=== PATIENT | female | born 1955 | race Two or more races ===

== ENCOUNTER 2020-11-26 14:20 | Inpatient (IN) | payer MEDICARE ==
[~2020-11-26] VITALS: Ht 149.9 cm; Wt 59.0 kg
[~2020-11-26 14:20] MED LIST: ACET325T9 PO; CEFE100B IV; CITA20TA6 PO; CYCL10TA2 PO; CYPR4TAB31 PO; DOCU100C28 PO; DULO60CA6 PO; FURO40TA4 PO; LACT1CAP21 PO; LACT20SO PO; MAG30ORA6 PO; MORP2CAR3 IV; MULT-238 PO; OXYC10TA PO; OXYC5TAB88 PO; PANT40TA77 PO; POTA10TA6 PO; PREG75CA67 PO; SENN1TAB62 PO; SPIR50TA4 PO
--- NOTE | 2020-11-26 14:46 | PHYS DOC ---
Past Medical History Smoking Status: Never Smoker General Adult EDM: Chief Complaint: ALTERED MENTAL STATUS HPI: HPI: Patient is a 64 year old female coming from [facility] who presents with altered mental status and reported hypotension. SBP in the 80s prior to hospital. Has new onset tremor. Per report from EMS her baseline is alert and oriented x3. Here she is unable to participate in history and appears delirious. Review of Systems: Review of Systems: Unable to participate in history due to delirium. Heart Score: C/O Chest Pain: N/A Risk Factors: Risk Factors: DM, Current or recent (<one month) smoker, HTN, HLP, family history of CAD, obesity. Risk Scores: Score 0 - 3: 2.5% MACE over next 6 weeks - Discharge Home Score 4 - 6: 20.3% MACE over next 6 weeks - Admit for Clinical Observation Score 7 - 10: 72.7% MACE over next 6 weeks - Early Invasive Strategies Allergies: Allergies: Allergies Coded Allergies Type Severity Reaction Last Updated Verified prednisone Allergy Intermediate 11/16/20 Yes Physical Exam: PE: Constitutional: Obese, ill-appearing.. [] HENT: Mild bruising around head and neck as well as upper extremities. [] Eyes: conjunctiva normal, no discharge. [] Neck: Normal range of motion, bruising as noted above. [] Cardiovascular:Heart rate regular rhythm, no murmur [] Lungs & Thorax: Distant breath sounds, normal work of breathing [] Abdomen: ower abdominal tenderness to palpation.. [] Skin: Dorsum of right foot with ulceration and edema. Wound VAC in place on left anterior bustamante without surrounding erythema or discharge.. [] Extremities: No tenderness, no cyanosis, no clubbing, ROM intact, no edema. [] Neurologic: Disoriented to situation. Speech normal. Moving all 4 extremities. Tremulous. [] EKG: EKG: Sinus rhythm. Rate 87. Normal axis. Normal interval. Inferior Q waves. T wave inversion in lead III, V3V6. No acute ST elevation or depression. [] Radiology/Procedures: Radiology/Procedures: [] Impression: [facility] [address] [place] [address] IMAGING REPORT Signed PATIENT: JESSICA POWERS ACCOUNT: [id number] : 1955 LOCATION: ER AGE: 64 SEX: F EXAM STATUS: REG ER ORD. PHYSICIAN: LEO FLEMING MD REASON: ALTERED MENTAL STATUS PROCEDURE: CT HEAD WO CONTRAST Exam Date: 11/26/2020 3:[address] HEAD/BRAIN WO Indication: Reason: ALTERED MENTAL STATUS / Spl. Instructions: / History: . TECHNIQUE: Head CT was performed without intravenous contrast. One or more of the following dose reduction techniques were utilized: *Automated exposure control (AEC) *Adjustment of mA and/or kV according to patient size *Use of iterative reconstruction technique *CT scan done according to ALARA, or ALARA/IMAGE GENTLY FINDINGS: The ventricles and sulci are prominent consistent with cerebral volume loss. Patchy ill-defined low attenuation areas in the subcortical and periventricular white matter bilaterally are consistent with microvascular disease. There is no evidence of acute intracranial hemorrhage, extra-axial collection, mass effect, midline shift, or acute territorial infarct. No lesion of the skull base or the calvarium is seen. The visualized paranasal sinuses, mastoid air cells and orbits are normal in appearance. IMPRESSION: No evidence for acute intracranial abnormality. Volume loss and microvascular disease. Electronically signed by: Gela Ndiaye MD (11/26/2020 3:39 PM) [facility] DICTATED and SIGNED BY: GELA NDIAYE MD DATE: 11/26/20 [id number] [facility] [address] [place] [address] IMAGING REPORT Signed PATIENT: JESSICA POWERS ACCOUNT: [id number] : 1955 LOCATION: ER AGE: 64 SEX: F EXAM STATUS: PRE ER ORD. PHYSICIAN: LEO FLEMING MD REASON: ams PROCEDURE: CHEST AP ONLY XR CHEST 1V CLINICAL INDICATIONS: Altered mental status: COMPARISON: None available. Findings: Decreased lung volumes are seen. Bilateral diffuse interstitial lung infiltrates or peribronchial thickening is seen which may be acute or chronic in nature. No lung mass or lung consolidation or pleural effusion or pneumothorax is apparent otherwise. Radiodensities are seen within the bronchi of the right medial lower lung zone. This could be due to previous aspiration of barium or could represent calcification of mucous plugs. There is mild elevation of the right hemidiaphragm. The heart size is unremarkable given AP magnification and rotation towards the left side. The mediastinum and pulmonary vasculature are unremarkable. IMPRESSION: Decreased lung volumes. Elevation of the right hemidiaphragm. Bilateral interstitial thickening and/or peribronchial thickening which may be acute or chronic in nature. No lung consolidation. Radiopacities within the right lower lung zone bronchi. Electronically signed by: Miller Buitrago MD (11/26/2020 3:04 PM) [id number] DICTATED and SIGNED BY: MILLER BUITRAGO MD DATE: 11/26/20 [id number] [facility] [address] [place] [address] IMAGING REPORT Signed PATIENT: JESSICA POWERS ACCOUNT: [id number] : 1955 LOCATION: ER AGE: 64 SEX: F EXAM STATUS: REG ER ORD. PHYSICIAN: LEO FLEMING MD REASON: abdominal pain, altered, elevated bili PROCEDURE: CT ABD PELV W/ IV CONTRST ONLY Exam: CT of abdomen and pelvis with contrast INDICATION: Abdominal pain TECHNIQUE: Sequential axial images through the abdomen and pelvis obtained f ollowing the administration of 60 mL of Omni 300 IV contrast. Sagittal and coronal reformatted images were reconstructed from the axial data and reviewed. Exposure: One or more of the following in the visualized dose reduction techniques were utilized for this examination: 1. Automated exposure control 2. Adjustment of the MA and/or KV according to patient size 3. Use of iterative of reconstructive technique Comparisons: 11/01/2020 FINDINGS: Heart size is normal. No pericardial effusion. Linear bandlike opacity noted at the lung bases. No pleural effusion. Liver demonstrate a nodular contour. Gallbladder is absent. Spleen is enlarged measuring up to 17 cm in long axis. Pancreas and adrenals are unremarkable. Gallbladder is absent. Mildly delayed enhancement of the kidneys bilaterally. There is mild bilateral hydronephrosis. No renal or ureteral calculi are identified. Bladder is markedly distended and appears thin-walled. Uterus is absent. No abnormal adnexal mass. Moderate amount of stool is noted in the colon. Appendix is not identified. No free intra-abdominal air or fluid. No obstruction. Abdominal aorta has a normal course and caliber. Abdominal vasculature is patent. No enlarged intra-abdominal lymph nodes are identified. Compression fractures of the L3 and L5 vertebral bodies with vertebroplasty changes are noted. Numerous chronic appearing bilateral rib fractures. No acute fracture or suspicious osseous lesion. IMPRESSION: 1. Bladder is markedly dilated. Correlate for bladder outlet obstruction. 2. Mild bilateral hydronephrosis which can also be seen in setting of bladder outlet obstruction. No renal or ureteral calculi are identified. 3. Cirrhotic morphology of the liver with secondary sequela of portal hypertension including splenomegaly and abdominal varices. Electronically signed by: Amara Serra MD (11/26/2020 5:19 PM) [facility] DICTATED and SIGNED BY: AMARA SERRA MD DATE: 11/26/20 [id number] Course & Med Decision Making: Course & Med Decision Making Pertinent Labs and Imaging studies reviewed. (See chart for details) Patient is 64-year-old female who presents from [facility] with altered mental status reported hypotension. We are having difficulty obtaining a BP initially, but she has a strong radial pulse. She does appear to be delirious and tremulous on exam. She does have bruising around her neck and head which will prompt a CT of the head. We will do an infectious work-up with lactic acid, blood cultures, UA, chest x- ray. She also has a potential source of infection on the dorsum of her right foot which appears cellulitic. We will check an ammonia for hepatic encephalopathy given her delirium and tremor. IVF ordered as we await preliminary work-up. Ceftriaxone 1g for coverage of potential sepsis. 1446 Ammonia slightly elevated at 55. Mild GAVINO 1.[address] shows marked bladder distention, unable to urinate consistent with urinary retention. Awaiting UA. Lactate elevated at 2.8. We will plan on admission for delirium, urinary retention, GAVINO, and elevated lactic acid. [address] Disclaimer: [place] Disclaimer: This electronic medical record was generated, in whole or in part, using a voice recognition dictation system. Departure Departure Impression: Primary Impression: Delirium Additional Impression: Urinary retention Disposition: ADMITTED INPATIENT Admitting Physician: HIMS (SMITH) Condition: STABLE Referrals: NO PCP (PCP) LEO FLEMING MD Nov 26, 2020 14:46
[2020-11-26] MEDS ORDERED: IV NORMAL SALINE 1000ML BAG 1,000 ML IV ONE (15:00)
[2020-11-26] MEDS ORDERED: cefTRIAXone IV Push 1 GM VIAL. IVP ONE (15:00)
--- NOTE | 2020-11-26 15:07 | RAD ---
XR CHEST 1V CLINICAL INDICATIONS: Altered mental status: COMPARISON: None available. Findings: Decreased lung volumes are seen. Bilateral diffuse interstitial lung infiltrates or peribro nchial thickening is seen which may be acute or chronic in nature. No lung mass or lung consolidation or pleural effusion or pneumothorax is apparent otherwise. Radiodensities are seen within the bronch i of the right medial lower lung zone. This could be due to previous aspiration of barium or could re present calcification of mucous plugs. There is mild elevation of the right hemidiaphragm. The heart size is unremarkable given AP magnification and rotation towards the left side. The mediastinum and p ulmonary vasculature are unremarkable. IMPRESSION: Decreased lung volumes. Elevation of the right hemidiaphragm. Bilateral interstitial thickening and/or peribronchial thickening which may be acute or chronic in na ture. No lung consolidation. Radiopacities within the right lower lung zone bronchi. Electronically signed by: Elier Buitrago MD (11/26/2020 3:04 PM) [id number]
--- NOTE | 2020-11-26 15:42 | RAD ---
Exam Date: 11/26/2020 3:[address] HEAD/BRAIN WO Indication: Reason: ALTERED MENTAL STATUS / Spl. Instructions: / History: . TECHNIQUE: Head CT was performed without intravenous contrast. One or more of the following dose re duction techniques were utilized: *Automated exposure control (AEC) *Adjustment of mA and/or kV according to patient size *Use of iterative reconstruction technique *CT scan done according to ALARA, or ALARA/IMAGE GENTLY FINDINGS: The ventricles and sulci are prominent consistent with cerebral volume loss. Patchy ill-defined low attenuation areas in the subcortical and periventricular white matter bilaterally are consistent with microvascular disease. There is no evidence of acute intracranial hemorrhage, extra-axial collecti on, mass effect, midline shift, or acute territorial infarct. No lesion of the skull base or the calv arium is seen. The visualized paranasal sinuses, mastoid air cells and orbits are normal in appearanc e. IMPRESSION: No evidence for acute intracranial abnormality. Volume loss and microvascular disease. Electronically signed by: Daryl Ndiaye MD (11/26/2020 3:39 PM) [facility]
[2020-11-26 15:54] LABS: BASO % 1 % (0-3); EOS # 0.1 x10^3/uL (0.0-0.7); EOS % 2 % (0-3); HEMATOCRIT 31.8 % (36.0-47.0); HEMOGLOBIN 10.1 g/dL (12.0-15.5); LYMPH # 1.1 x10^3/uL (1.0-4.8); LYMPH % 19 % (24-48); MEAN CORPUSCULAR HEMOGLOBIN 31 pg (25-35); MEAN CORPUSCULAR HGB CONC 32 g/dL (31-37); MEAN CORPUSCULAR VOLUME 99 fL (79-100); MONO # 0.4 x10^3/uL (0.0-1.1); MONO % 7 % (0-9); NEUT % 72 % (31-73); PLATELET COUNT 95 x10^3/uL (140-400); RED BLOOD COUNT 3.22 x10^6/uL (3.50-5.40); RED CELL DISTRIBUTION WIDTH 16.9 % (11.5-14.5); WHITE BLOOD COUNT 5.6 x10^3/uL (4.0-11.0)
[2020-11-26 16:25] LABS: ALBUMIN 2.3 g/dL (3.4-5.0); ALBUMIN/GLOBULIN RATIO 0.6 (1.0-1.7); CALCIUM 8.3 mg/dL (8.5-10.1); CREATININE 1.2 mg/dL (0.6-1.0); GFR 45.2; POTASSIUM 4.3 mmol/L (3.5-5.1); TOTAL BILIRUBIN 1.4 mg/dL (0.2-1.0); TOTAL PROTEIN 6.2 g/dL (6.4-8.2)
[2020-11-26] MEDS ORDERED: CONTRAST GIVEN. MC PRN (16:45)
[2020-11-26] MEDS ORDERED: IOHEXOL 300 MG/ML 100ML VIAL. IV ONE (16:45)
--- NOTE | 2020-11-26 17:21 | RAD ---
Exam: CT of abdomen and pelvis with contrast INDICATION: Abdominal pain TECHNIQUE: Sequential axial images through the abdomen and pelvis obtained following the administrati on of 60 mL of Omni 300 IV contrast. Sagittal and coronal reformatted images were reconstructed from the axial data and reviewed. Exposure: One or more of the following in the visualized dose reduction techniques were utilized for this examination: 1. Automated exposure control 2. Adjustment of the MA and/or KV according to patient size 3. Use of iterative of reconstructive technique Comparisons: 11/01/2020 FINDINGS: Heart size is normal. No pericardial effusion. Linear bandlike opacity noted at the lung bases. No pl eural effusion. Liver demonstrate a nodular contour. Gallbladder is absent. Spleen is enlarged measuring up to 17 cm in long axis. Pancreas and adrenals are unremarkable. Gallbladder is absent. Mildly delayed enhancement of the kidneys bilaterally. There is mild bilateral hydronephrosis. No jacinto al or ureteral calculi are identified. Bladder is markedly distended and appears thin-walled. Uterus is absent. No abnormal adnexal mass. Moderate amount of stool is noted in the colon. Appendix is not identified. No free intra-abdominal a ir or fluid. No obstruction. Abdominal aorta has a normal course and caliber. Abdominal vasculature is patent. No enlarged intra-abdominal lymph nodes are identified. Compression fractures of the L3 and L5 vertebral bodies with vertebroplasty changes are noted. Get us chronic appearing bilateral rib fractures. No acute fracture or suspicious osseous lesion. IMPRESSION: 1. Bladder is markedly dilated. Correlate for bladder outlet obstruction. 2. Mild bilateral hydronephrosis which can also be seen in setting of bladder outlet obstruction. No renal or ureteral calculi are identified. 3. Cirrhotic morphology of the liver with secondary sequela of portal hypertension including splenom egaly and abdominal varices. Electronically signed by: Amara Baker MD (11/26/2020 5:19 PM) [facility]
--- NOTE | 2020-11-26 18:16 | PDOC1 ---
History and Physical Date of Service: DOS: DATE: 11/26/20 TIME: 18:03 Chief Complaint: Chief Complain: AMS History of Present Illness: HPI: History obtained from discussion with ED physician and chart review: 64-year-old female with past medical history of DVT, chronic back pain, GERD, liver cirrhosis, hypothyroidism who comes in from [facility] due to altered mental status and hypotension. Patient had systolic blood pressure of 80s before presentation to the hospital. Patient was also recently admitted here due to a left leg hematoma that got debrided. Apparently the patient's baseline is alert and oriented x3. Past Medical/Surgical History: PMH/PSH: PAST MEDICAL HISTORY: Significant for: 1. Lumbar radiculopathy. 2. Chronic anemia. 3. Protein-calorie malnutrition. 4. Hypothyroidism. 5. Acute embolism and thrombosis of lower extremities. 6. Gastroesophageal reflux disease. 7. Lumbago sciatica. 8. Cognitive communication deficit. PAST SURGICAL HISTORY: Significant for: 1. Lumbar fusion. 2. Total abdominal hysterectomy and bilateral salpingo-oophorectomy. 3. Bladder suspension. Allergies: Allergies: Coded Allergies: prednisone (Verified Allergy, Intermediate, 11/16/20) Family History: Family History: Reviewed with no relevant findings Social History: Social History: No known history of smoking, drug or alcohol abuse. Current Medications: Current Medications Current Medications Sodium Chloride 1,000 ml @ 1,000 mls/hr 1X ONCE IV Last administered on 11/26/20at 16:26; Start 11/26/20 at 15:00; Stop 11/26/20 at 15:59; Status DC Ceftriaxone Sodium (Rocephin) 1 gm 1X ONCE IVP Last administered on 11/26/20at 16:26; Start 11/26/20 at 15:00; Stop 11/26/20 at 15:01; Status DC Iohexol (Omnipaque 300 Mg/ml) 60 ml 1X ONCE IV Last administered on 11/26/20at 16:56; Start 11/26/20 at 16:45; Stop 11/26/20 at 16:46; Status DC Info (CONTRAST GIVEN -- Rx MONITORING) 1 each PRN DAILY PRN MC SEE COMMENTS; Start 11/26/20 at 16:45; Stop 11/28/20 at 16:44 Lactulose (Lactulose) 20 gm 1X ONCE PO ; Start 11/26/20 at 18:30; Stop 11/26/20 at 18:31 Active Scripts Active Oxycodone Hcl Immed.release (Oxycodone Hcl) 10 Mg Tablet 10 Mg PO PRN Q6HRS PRN 15 Days Oxycodone Hcl Immed.release (Oxycodone Hcl) 10 Mg Tablet 10 Mg PO PRN Q6HRS PRN 15 Days Reported Spironolactone 50 Mg Tablet 1 Tab PO DAILY Senna Plus Tablet (Sennosides/Docusate Sodium) 1 Each Tablet 1 Tab PO PRN DAILY PRN 20 Days Pregabalin 75 Mg Capsule 75 Mg PO TID Klor-Con 10 (Potassium Chloride) 10 Meq Tablet.er 1 Tab PO DAILY 30 Days Pantoprazole Sodium (Pantoprazole Sodium) 40 Mg Tablet.dr 40 Mg PO DAILYAC Thera-M Caplet (Multivit,Ther Iron,Ca,Fa & Min) 1 Each Tablet 1 Tab PO DAILY 30 Days Mag-Al Hydrox-Simeth Max Susp (Mag Hydrox/Aluminum Hyd/Simeth) 30 Ml Oral.susp 5 Ml PO PRN Q6HRS PRN Lactulose 20 Gm/30 Ml Solution 20 Gm PO PRN TID PRN Culturelle (Lactobacillus Rhamnosus Gg) 1 Each Capsule 1 Cap PO DAILY 30 Days Furosemide 40 Mg Tablet 1 Tab PO DAILY Cymbalta (Duloxetine Hcl) 60 Mg Capsule.dr 1 Cap PO DAILY Docusate Sodium 100 Mg Capsule 1 Cap PO BID PRN 7 Days Cyproheptadine Hcl 4 Mg Tablet 1 Tab PO BID Cyclobenzaprine Hcl 10 Mg Tablet 1 Tab PO TID Citalopram Hbr (Citalopram Hydrobromide) 20 Mg Tablet 1 Tab PO DAILY Tylenol (Acetaminophen) 325 Mg Tablet 650 Mg PO PRN TID PRN ROS: Review of Systems Review of System Unable to obtain due to altered mental status Physical Exam: Vital Signs: Vital Signs Date Time Temp Pulse Resp B/P (MAP) Pulse Ox O2 Delivery O2 Flow Rate FiO2 11/26/20 16:31 80 14 103/66 (78) 92 Room Air 11/26/20 14:31 98.3 98.3 Physcial Exam: General: Well developed, well nourished, no acute distress, well appearing HEENT: Pupils equally round and reactive to light, EOMI, no discharge, normal conjunctiva Neck: Supple, no nuchal rigidity, no JVD, trachea midline, no tenderness Cardiac: RRR, no murmurs, no gallops, no rubs Chest/Lungs: CTAB, no wheeze, no rhonchi, no crackles Abdomen: soft, non-distended, no guarding, no peritoneal signs, non-tender Back: No tenderness Extremities: no edema, pulses intact, non-tender,capillary refill <3 sec bilateral upper and lower extremities, Dorsum of right foot with ulceration and edema. Wound VAC in place on left anterior bustamante without surrounding erythema or discharge. Neuro: Alert and oriented x 4, no focal deficits, normal speech Labs: Labs: Laboratory Tests Test 11/26/20 14:50 11/26/20 15:42 Glucose (Fingerstick) 143 mg/dL (70-99) White Blood Count 5.6 x10^3/uL (4.0-11.0) Red Blood Count 3.22 x10^6/uL (3.50-5.40) Hemoglobin 10.1 g/dL (12.0-15.5) Hematocrit 31.8 % (36.0-47.0) Mean Corpuscular Volume 99 fL (79-100) Mean Corpuscular Hemoglobin 31 pg (25-35) Mean Corpuscular Hemoglobin Concent 32 g/dL (31-37) Red Cell Distribution Width 16.9 % (11.5-14.5) Platelet Count 95 x10^3/uL (140-400) Neutrophils (%) (Auto) 72 % (31-73) Lymphocytes (%) (Auto) 19 % (24-48) Monocytes (%) (Auto) 7 % (0-9) Eosinophils (%) (Auto) 2 % (0-3) Basophils (%) (Auto) 1 % (0-3) Neutrophils # (Auto) 4.0 x10^3/uL (1.8-7.7) Lymphocytes # (Auto) 1.1 x10^3/uL (1.0-4.8) Monocytes # (Auto) 0.4 x10^3/uL (0.0-1.1) Eosinophils # (Auto) 0.1 x10^3/uL (0.0-0.7) Basophils # (Auto) 0.0 x10^3/uL (0.0-0.2) Sodium Level 140 mmol/L (136-145) Potassium Level 4.3 mmol/L (3.5-5.1) Chloride Level 104 mmol/L (98-107) Carbon Dioxide Level 30 mmol/L (21-32) Anion Gap 6 (6-14) Blood Urea Nitrogen 23 mg/dL (7-20) Creatinine 1.2 mg/dL (0.6-1.0) Estimated GFR (Cockcroft-Gault) 45.2 BUN/Creatinine Ratio 19 (6-20) Glucose Level 133 mg/dL (70-99) Lactic Acid Level 2.8 mmol/L (0.4-2.0) Calcium Level 8.3 mg/dL (8.5-10.1) Total Bilirubin 1.4 mg/dL (0.2-1.0) Aspartate Amino Transf (AST/SGOT) 26 U/L (15-37) Alanine Aminotransferase (ALT/SGPT) 23 U/L (14-59) Alkaline Phosphatase 159 U/L (46-116) Ammonia 55 mcmol/L (11-34) Troponin I Quantitative < 0.017 ng/mL (0.000-0.055) Total Protein 6.2 g/dL (6.4-8.2) Albumin 2.3 g/dL (3.4-5.0) Albumin/Globulin Ratio 0.6 (1.0-1.7) Laboratory Tests Test 11/26/20 14:50 11/26/20 15:42 Glucose (Fingerstick) 143 mg/dL (70-99) White Blood Count 5.6 x10^3/uL (4.0-11.0) Red Blood Count 3.22 x10^6/uL (3.50-5.40) Hemoglobin 10.1 g/dL (12.0-15.5) Hematocrit 31.8 % (36.0-47.0) Mean Corpuscular Volume 99 fL (79-100) Mean Corpuscular Hemoglobin 31 pg (25-35) Mean Corpuscular Hemoglobin Concent 32 g/dL (31-37) Red Cell Distribution Width 16.9 % (11.5-14.5) Platelet Count 95 x10^3/uL (140-400) Neutrophils (%) (Auto) 72 % (31-73) Lymphocytes (%) (Auto) 19 % (24-48) Monocytes (%) (Auto) 7 % (0-9) Eosinophils (%) (Auto) 2 % (0-3) Basophils (%) (Auto) 1 % (0-3) Neutrophils # (Auto) 4.0 x10^3/uL (1.8-7.7) Lymphocytes # (Auto) 1.1 x10^3/uL (1.0-4.8) Monocytes # (Auto) 0.4 x10^3/uL (0.0-1.1) Eosinophils # (Auto) 0.1 x10^3/uL (0.0-0.7) Basophils # (Auto) 0.0 x10^3/uL (0.0-0.2) Sodium Level 140 mmol/L (136-145) Potassium Level 4.3 mmol/L (3.5-5.1) Chloride Level 104 mmol/L (98-107) Carbon Dioxide Level 30 mmol/L (21-32) Anion Gap 6 (6-14) Blood Urea Nitrogen 23 mg/dL (7-20) Creatinine 1.2 mg/dL (0.6-1.0) Estimated GFR (Cockcroft-Gault) 45.2 BUN/Creatinine Ratio 19 (6-20) Glucose Level 133 mg/dL (70-99) Lactic Acid Level 2.8 mmol/L (0.4-2.0) Calcium Level 8.3 mg/dL (8.5-10.1) Total Bilirubin 1.4 mg/dL (0.2-1.0) Aspartate Amino Transf (AST/SGOT) 26 U/L (15-37) Alanine Aminotransferase (ALT/SGPT) 23 U/L (14-59) Alkaline Phosphatase 159 U/L (46-116) Ammonia 55 mcmol/L (11-34) Troponin I Quantitative < 0.017 ng/mL (0.000-0.055) Total Protein 6.2 g/dL (6.4-8.2) Albumin 2.3 g/dL (3.4-5.0) Albumin/Globulin Ratio 0.6 (1.0-1.7) Images: Images PROCEDURE: CT ABD PELV W/ IV CONTRST ONLY IMPRESSION: 1. Bladder is markedly dilated. Correlate for bladder outlet obstruction. 2. Mild bilateral hydronephrosis which can also be seen in setting of bladder outlet obstruction. No renal or ureteral calculi are identified. 3. Cirrhotic morphology of the liver with secondary sequela of portal hypertension including splenomegaly and abdominal varices. PROCEDURE: CT HEAD WO CONTRAST IMPRESSION: No evidence for acute intracranial abnormality. Volume loss and microvascular disease. PROCEDURE: CHEST AP ONLY IMPRESSION: Decreased lung volumes. Elevation of the right hemidiaphragm. Bilateral interstitial thickening and/or peribronchial thickening which may be acute or chronic in nature. No lung consolidation. Radiopacities within the right lower lung zone bronchi. Assessment/Plan Assessment/Plan Acute metabolic encephalopathy GAVINO due to vasomotor nephropathy Acute urinary retention due to bladder outlet obstruction Liver cirrhosis MELD score of around 9, pending INR for more accurate calculation Elevated ammonia levels Severe protein malnutrition History of bladder suspension Hypothyroidism History of DVT Admit to hospitalist service for further management Lactulose as needed to maintain bowel movements at least 2-3 times per day Martinez catheter placement to relieve bladder outlet obstruction Heparin for DVT prophylaxis Tonics GI prophylaxis ADA diet CODE STATUS unknown at this time Discussed with RN and SW Disposition inpatient management as above DPOA: Jim Cabrera Justifications for Admission Other Justification YOLY SMITH MD Nov 26, 2020 18:16
[2020-11-26] MEDS ORDERED: LACTULOSE 20 GM/30 ML SOLUTION. PO ONE (18:30)
[2020-11-26] MEDS ORDERED: DOCUSATE SODIUM 100 MG CAPSULE. PO PRN (21:00)
[2020-11-26] MEDS ORDERED: ONDANSETRON PF 4 MG/2 ML VIAL. IVP PRN (21:00)
[2020-11-26] MEDS ORDERED: DEXTROSE 50% 25 GM / 50ML DISP.SYRIN. IV PRN (21:00)
[2020-11-26] MEDS ORDERED: ACETAMINOPHEN 325 MG TABLET. PO PRN (21:00)
[2020-11-26] MEDS ORDERED: PROCHLORPERAZINE 10 MG/2 ML VIAL. IV PRN (21:00)
[2020-11-26] MEDS ORDERED: SENNOSIDES 8.6 MG TABLET PO PRN (21:00)
--- NOTE | 2020-11-26 21:21 | NUR ---
The patient, JESSICA POWERS, 64 y/o, F admitted by YOLY SMITH MD, was given written information regarding hospital policies, unit procedures and contact persons. Valuables were checked and left with her.
[2020-11-26 21:36] VITALS: BP 137/46
[2020-11-26 23:00] VITALS: BP 124/71
[2020-11-27 03:00] VITALS: BP 136/78
[2020-11-27 07:00] VITALS: BP 130/51
[2020-11-27 07:15] LABS: BASO % 1 % (0-3); EOS # 0.1 x10^3/uL (0.0-0.7); EOS % 3 % (0-3); HEMATOCRIT 27.1 % (36.0-47.0); HEMOGLOBIN 9.2 g/dL (12.0-15.5); LYMPH # 0.8 x10^3/uL (1.0-4.8); LYMPH % 25 % (24-48); MEAN CORPUSCULAR HEMOGLOBIN 32 pg (25-35); MEAN CORPUSCULAR HGB CONC 34 g/dL (31-37); MEAN CORPUSCULAR VOLUME 95 fL (79-100); MONO # 0.2 x10^3/uL (0.0-1.1); MONO % 7 % (0-9); NEUT # 1.9 x10^3/uL (1.8-7.7); NEUT % 64 % (31-73); PLATELET COUNT 66 x10^3/uL (140-400); RED BLOOD COUNT 2.86 x10^6/uL (3.50-5.40); RED CELL DISTRIBUTION WIDTH 15.7 % (11.5-14.5)
[2020-11-27] MEDS ORDERED: PANTOPRAZOLE IV PUSH 40 MG VIAL. IVP SCH (07:30)
[2020-11-27 07:31] LABS: CALCIUM 8.1 mg/dL (8.5-10.1); CREATININE 1.1 mg/dL (0.6-1.0); MAGNESIUM 1.8 mg/dL (1.8-2.4); PHOSPHORUS 4.3 mg/dL (2.6-4.7)
[2020-11-27 09:12] LABS: PROTHROMBIN TIME PATIENT 17.2 SEC (11.7-14.0)
--- NOTE | 2020-11-27 09:56 | PDOC2 ---
GI CONSULT Date of Service: DATE: 11/27/20 TIME: 09:56 Reason For Consult: cirrhosis, varices, beta mega window? HPI: HPI: 64 y/o female admitted yesterday w/ AMS and hypotension. She tells me she got up in the middle of the night and fell (prior to admission). CT noted markedly dilated bladder, mild bilateral hydronephrosis, and cirrhotic morphology of the liver with secondary sequela of portal hypertension including splenomegaly and abdominal varices. She has no GI complaints. Participates in interview, suspect not the best historian. No GI concerns per nurse. Recent admission, had LE hematoma debridement. H&P at that time listed medications that included: Eliquis, spironolactone, ASA, furosemide, lactulose, Protonix. H/o GERD controlled w/ omeprazole. No change in appetite, dysphagia, n/v, abd pain, diarrhea, constipation, hematochezia, or melena. Says her abdomen is "full of fluid." No previous EGD or colonoscopy. Unaware of liver disease - says "you're scaring me" and "I'm not a drinker." S/p cholecystectomy. No pancreas or PUD history. PMH: PMH: hypothyroidism, GERD, DVT, cognitive communication deficit, lumbar radiculopathy lumbar fusion, hysterectomy and BSO, bladder suspension, vertebroplasty FH: Family History: No pertinent hx (denies liver disease) Social History: ALCOHOL: none Drugs: None ROS: GEN: Denies fevers, chills, sweats HEENT: Denies blurred vision, sore throat CV: Denies chest pain RESP: Denies shortness of air, cough GI: Per HPI : Denies hematuria, dysuria ENDO: Denies weight changes NEURO: Denies confusion, dizziness MSK: +recent fall +leg pain SKIN: Denies jaundice, pruritus Vitals: Vitals: Vital Signs Date Time Temp Pulse Resp B/P (MAP) Pulse Ox O2 Delivery O2 Flow Rate FiO2 11/27/20 07:00 97.7 76 18 130/51 (77) 96 97.7 11/27/20 03:00 Room Air Labs: Labs: Laboratory Tests Test 11/26/20 14:50 11/26/20 15:42 11/26/20 20:00 11/27/20 06:40 Glucose (Fingerstick) 143 mg/dL (70-99) White Blood Count 5.6 x10^3/uL (4.0-11.0) 3.0 x10^3/uL (4.0-11.0) Red Blood Count 3.22 x10^6/uL (3.50-5.40) 2.86 x10^6/uL (3.50-5.40) Hemoglobin 10.1 g/dL (12.0-15.5) 9.2 g/dL (12.0-15.5) Hematocrit 31.8 % (36.0-47.0) 27.1 % (36.0-47.0) Mean Corpuscular Volume 99 fL (79-100) 95 fL (79-100) Mean Corpuscular Hemoglobin 31 pg (25-35) 32 pg (25-35) Mean Corpuscular Hemoglobin Concent 32 g/dL (31-37) 34 g/dL (31-37) Red Cell Distribution Width 16.9 % (11.5-14.5) 15.7 % (11.5-14.5) Platelet Count 95 x10^3/uL (140-400) 66 x10^3/uL (140-400) Neutrophils (%) (Auto) 72 % (31-73) 64 % (31-73) Lymphocytes (%) (Auto) 19 % (24-48) 25 % (24-48) Monocytes (%) (Auto) 7 % (0-9) 7 % (0-9) Eosinophils (%) (Auto) 2 % (0-3) 3 % (0-3) Basophils (%) (Auto) 1 % (0-3) 1 % (0-3) Neutrophils # (Auto) 4.0 x10^3/uL (1.8-7.7) 1.9 x10^3/uL (1.8-7.7) Lymphocytes # (Auto) 1.1 x10^3/uL (1.0-4.8) 0.8 x10^3/uL (1.0-4.8) Monocytes # (Auto) 0.4 x10^3/uL (0.0-1.1) 0.2 x10^3/uL (0.0-1.1) Eosinophils # (Auto) 0.1 x10^3/uL (0.0-0.7) 0.1 x10^3/uL (0.0-0.7) Basophils # (Auto) 0.0 x10^3/uL (0.0-0.2) 0.0 x10^3/uL (0.0-0.2) Sodium Level 140 mmol/L (136-145) 141 mmol/L (136-145) Potassium Level 4.3 mmol/L (3.5-5.1) 4.0 mmol/L (3.5-5.1) Chloride Level 104 mmol/L (98-107) 105 mmol/L (98-107) Carbon Dioxide Level 30 mmol/L (21-32) 32 mmol/L (21-32) Anion Gap 6 (6-14) 4 (6-14) Blood Urea Nitrogen 23 mg/dL (7-20) 17 mg/dL (7-20) Creatinine 1.2 mg/dL (0.6-1.0) 1.1 mg/dL (0.6-1.0) Estimated GFR (Cockcroft-Gault) 45.2 50.0 BUN/Creatinine Ratio 19 (6-20) Glucose Level 133 mg/dL (70-99) 83 mg/dL (70-99) Lactic Acid Level 2.8 mmol/L (0.4-2.0) 1.6 mmol/L (0.4-2.0) Calcium Level 8.3 mg/dL (8.5-10.1) 8.1 mg/dL (8.5-10.1) Total Bilirubin 1.4 mg/dL (0.2-1.0) Aspartate Amino Transf (AST/SGOT) 26 U/L (15-37) Alanine Aminotransferase (ALT/SGPT) 23 U/L (14-59) Alkaline Phosphatase 159 U/L (46-116) Ammonia 55 mcmol/L (11-34) Troponin I Quantitative < 0.017 ng/mL (0.000-0.055) Total Protein 6.2 g/dL (6.4-8.2) Albumin 2.3 g/dL (3.4-5.0) Albumin/Globulin Ratio 0.6 (1.0-1.7) Phosphorus Level 4.3 mg/dL (2.6-4.7) Magnesium Level 1.8 mg/dL (1.8-2.4) Hepatitis A IgM Antibody Nonreactive (Nonreactive) Hepatitis B Surface Antigen Nonreactive (Nonreactive) Hepatitis B Core IgM Antibody Nonreactive (Nonreactive) Hepatitis C IgG Antibody Nonreactive (Nonreactive) Test 11/27/20 08:45 Prothrombin Time 17.2 SEC (11.7-14.0) Prothromb Time International Ratio 1.4 (0.8-1.1) Allergies: Coded Allergies: prednisone (Verified Allergy, Intermediate, 11/16/20) Medications: Current Medications Medications (Trade) Dose Ordered Sig/Lizette Route PRN Reason Start Time Stop Time Status Last Admin Dose Admin Sodium Chloride 1,000 ml @ 1,000 mls/hr 1X ONCE IV 11/26/20 15:00 11/26/20 15:59 DC 11/26/20 16:26 Ceftriaxone Sodium (Rocephin) 1 gm 1X ONCE IVP 11/26/20 15:00 11/26/20 15:01 DC 11/26/20 16:26 Iohexol (Omnipaque 300 Mg/ml) 60 ml 1X ONCE IV 11/26/20 16:45 11/26/20 16:46 DC 11/26/20 16:56 Lactulose (Lactulose) 20 gm 1X ONCE PO 11/26/20 18:30 11/26/20 18:31 DC 11/26/20 20:07 Pantoprazole Sodium (PROTONIX VIAL for IV PUSH) 40 mg DAILYAC IVP 11/27/20 07:30 11/27/20 09:31 Imaging: Imaging: CXR 11/26 IMPRESSION: Decreased lung volumes. Elevation of the right hemidiaphragm. Bilateral interstitial thickening and/or peribronchial thickening which may be acute or chronic in nature. No lung consolidation. Radiopacities within the right lower lung zone bronchi. Head CT 11/26 IMPRESSION: No evidence for acute intracranial abnormality. Volume loss and microvascular disease. CT A/P 11/26 FINDINGS: Heart size is normal. No pericardial effusion. Linear bandlike opacity noted at the lung bases. No pleural effusion. Liver demonstrate a nodular contour. Gallbladder is absent. Spleen is enlarged measuring up to 17 cm in long axis. Pancreas and adrenals are unremarkable. Gallbladder is absent. Mildly delayed enhancement of the kidneys bilaterally. There is mild bilateral hydronephrosis. No renal or ureteral calculi are identified. Bladder is markedly distended and appears thin-walled. Uterus is absent. No abnormal adnexal mass. Moderate amount of stool is noted in the colon. Appendix is not identified. No free intra-abdominal air or fluid. No obstruction. Abdominal aorta has a normal course and caliber. Abdominal vasculature is patent. No enlarged intra-abdominal lymph nodes are identified. Compression fractures of the L3 and L5 vertebral bodies with vertebroplasty changes are noted. Numerous chronic appearing bilateral rib fractures. No acute fracture or suspicious osseous lesion. IMPRESSION: 1. Bladder is markedly dilated. Correlate for bladder outlet obstruction. 2. Mild bilateral hydronephrosis which can also be seen in setting of bladder o utlet obstruction. No renal or ureteral calculi are identified. 3. Cirrhotic morphology of the liver with secondary sequela of portal hypertension including splenomegaly and abdominal varices. PE: GEN: appears chronically ill HEENT: Atraumatic, PERRLA LUNGS: CTAB anteriorly HEART: RRR ABD: large, soft, non-tender EXTREMITY: some edema BLE, LLE wrapped, both tender to light touch SKIN: No rashes, no jaundice NEURO/PSYCH: appropriate, probably forgetful A/P: A/P: AMS, hypotension Pancytopenia, coagulopathy, mild hyperammonemia, elevated Alk Phos Abnormal CT - "cirrhotic morphology of the liver with secondary sequela of portal hypertension including splenomegaly and abdominal varices" GERD - controlled w/ PPI CRC screen - none S/p cholecystectomy COVID negative H/o DVT - ?still on Eliquis -- She's unaware of liver history and not mentioned in other notes; however, takes lactulose and diuretics normally? Viral hepatitis panel negative. ?NAFLD Will d/w Dr. Sterling re: additional labs and beta-mega question. Agree w/ PPI - okay to change to PO. BRUNO KRSUE Nov 27, 2020 09:56
--- NOTE | 2020-11-27 10:38 | NUR ---
SW following. Discussed with RN. BRIE verified pt came from [facility], room air, regular diet. PT/OT ordered. Wound care and GI following. Pt will need a PCR COVID test prior to returning to [facility]. BRIE will continue to follow.
[2020-11-27 11:00] VITALS: BP 118/71
[2020-11-27] MEDS ORDERED: LACTULOSE 20 GM/30 ML SOLUTION. PO PRN (12:00)
--- NOTE | 2020-11-27 12:32 | PDOC ---
[employer] PROGRESS NOTE Date of Service DOS: DATE: 11/27/20 TIME: 12:27 Chief Complaint Chief Complaint Acute metabolic encephalopathy GAVINO due to vasomotor nephropathy Acute urinary retention due to bladder outlet obstruction Liver cirrhosis MELD score of 13 Elevated ammonia levels Severe protein malnutrition History of bladder suspension Hypothyroidism History of DVT Admit to hospitalist service for further management GI consult Continue ceftriaxone due to bladder outlet obstruction concerning for possible UTI and SBP prophylaxis considering findings of varices Lactulose as needed to maintain bowel movements at least 2-3 times per day Martinez catheter placement to relieve bladder outlet obstruction Heparin for DVT prophylaxis Protonix GI prophylaxis ADA diet CODE STATUS unknown at this time Discussed with RN and SW Disposition inpatient management as above DPOA: Jim Cabrera History of Present Illness History of Present Illness 64-year-old female with past medical history of DVT, chronic back pain, GERD, liver cirrhosis, hypothyroidism who comes in from [facility] due to altered mental status and hypotension. Patient had systolic blood pressure of 80s before presentation to the hospital. Patient was also recently admitted here due to a left leg hematoma that got debrided. Apparently the patient's baseline is alert and oriented x3. 11/27/2020 No acute events overnight. Patient seen and examined bedside. More alert today and was able to answer basic questions but still is a poor historian. Does not know why she has cirrhosis and she claims she is not a drinker. Patient's chart, labs, images were reviewed and discussed with RN Vitals/I&O Vitals/I&O: Vital Signs Date Time Temp Pulse Resp B/P (MAP) Pulse Ox O2 Delivery O2 Flow Rate FiO2 11/27/20 11:00 97.4 74 18 118/71 (87) 97 97.4 11/27/20 08:10 Room Air I & O 11/26/20 11/26/20 11/27/20 15:00 23:00 07:00 Intake Total 1120 ml 120 ml Output Total 0 ml Balance 1120 ml 120 ml Physical Exam General: Alert, Oriented X3, Cooperative Heart: Regular rate Abdomen: Normal bowel sounds Extremities: No clubbing, Other (Multiple bruises on extremities and shakiness with intentional tremors) Skin: No rashes Labs Labs: Laboratory Tests Test 11/26/20 14:50 11/26/20 15:42 11/26/20 20:00 11/27/20 06:40 Glucose (Fingerstick) 143 mg/dL (70-99) White Blood Count 5.6 x10^3/uL (4.0-11.0) 3.0 x10^3/uL (4.0-11.0) Red Blood Count 3.22 x10^6/uL (3.50-5.40) 2.86 x10^6/uL (3.50-5.40) Hemoglobin 10.1 g/dL (12.0-15.5) 9.2 g/dL (12.0-15.5) Hematocrit 31.8 % (36.0-47.0) 27.1 % (36.0-47.0) Mean Corpuscular Volume 99 fL (79-100) 95 fL (79-100) Mean Corpuscular Hemoglobin 31 pg (25-35) 32 pg (25-35) Mean Corpuscular Hemoglobin Concent 32 g/dL (31-37) 34 g/dL (31-37) Red Cell Distribution Width 16.9 % (11.5-14.5) 15.7 % (11.5-14.5) Platelet Count 95 x10^3/uL (140-400) 66 x10^3/uL (140-400) Neutrophils (%) (Auto) 72 % (31-73) 64 % (31-73) Lymphocytes (%) (Auto) 19 % (24-48) 25 % (24-48) Monocytes (%) (Auto) 7 % (0-9) 7 % (0-9) Eosinophils (%) (Auto) 2 % (0-3) 3 % (0-3) Basophils (%) (Auto) 1 % (0-3) 1 % (0-3) Neutrophils # (Auto) 4.0 x10^3/uL (1.8-7.7) 1.9 x10^3/uL (1.8-7.7) Lymphocytes # (Auto) 1.1 x10^3/uL (1.0-4.8) 0.8 x10^3/uL (1.0-4.8) Monocytes # (Auto) 0.4 x10^3/uL (0.0-1.1) 0.2 x10^3/uL (0.0-1.1) Eosinophils # (Auto) 0.1 x10^3/uL (0.0-0.7) 0.1 x10^3/uL (0.0-0.7) Basophils # (Auto) 0.0 x10^3/uL (0.0-0.2) 0.0 x10^3/uL (0.0-0.2) Sodium Level 140 mmol/L (136-145) 141 mmol/L (136-145) Potassium Level 4.3 mmol/L (3.5-5.1) 4.0 mmol/L (3.5-5.1) Chloride Level 104 mmol/L (98-107) 105 mmol/L (98-107) Carbon Dioxide Level 30 mmol/L (21-32) 32 mmol/L (21-32) Anion Gap 6 (6-14) 4 (6-14) Blood Urea Nitrogen 23 mg/dL (7-20) 17 mg/dL (7-20) Creatinine 1.2 mg/dL (0.6-1.0) 1.1 mg/dL (0.6-1.0) Estimated GFR (Cockcroft-Gault) 45.2 50.0 BUN/Creatinine Ratio 19 (6-20) Glucose Level 133 mg/dL (70-99) 83 mg/dL (70-99) Lactic Acid Level 2.8 mmol/L (0.4-2.0) 1.6 mmol/L (0.4-2.0) Calcium Level 8.3 mg/dL (8.5-10.1) 8.1 mg/dL (8.5-10.1) Total Bilirubin 1.4 mg/dL (0.2-1.0) Aspartate Amino Transf (AST/SGOT) 26 U/L (15-37) Alanine Aminotransferase (ALT/SGPT) 23 U/L (14-59) Alkaline Phosphatase 159 U/L (46-116) Ammonia 55 mcmol/L (11-34) Troponin I Quantitative < 0.017 ng/mL (0.000-0.055) Total Protein 6.2 g/dL (6.4-8.2) Albumin 2.3 g/dL (3.4-5.0) Albumin/Globulin Ratio 0.6 (1.0-1.7) Phosphorus Level 4.3 mg/dL (2.6-4.7) Magnesium Level 1.8 mg/dL (1.8-2.4) Hepatitis A IgM Antibody Nonreactive (Nonreactive) Hepatitis B Surface Antigen Nonreactive (Nonreactive) Hepatitis B Core IgM Antibody Nonreactive (Nonreactive) Hepatitis C IgG Antibody Nonreactive (Nonreactive) Test 11/27/20 08:45 Prothrombin Time 17.2 SEC (11.7-14.0) Prothromb Time International Ratio 1.4 (0.8-1.1) Assessment and Plan Assessmemt and Plan Problems Medical Problems: (1) Delirium Status: Acute (2) Urinary retention Status: Acute Comment Review of Relevant I have reviewed the following items tracie (where applicable) has been applied. Medications: Current Medications Medications (Trade) Dose Ordered Sig/Lizette Route PRN Reason Start Time Stop Time Status Last Admin Dose Admin Sodium Chloride 1,000 ml @ 1,000 mls/hr 1X ONCE IV 11/26/20 15:00 11/26/20 15:59 DC 11/26/20 16:26 Ceftriaxone Sodium (Rocephin) 1 gm 1X ONCE IVP 11/26/20 15:00 11/26/20 15:01 DC 11/26/20 16:26 Iohexol (Omnipaque 300 Mg/ml) 60 ml 1X ONCE IV 11/26/20 16:45 11/26/20 16:46 DC 11/26/20 16:56 Lactulose (Lactulose) 20 gm 1X ONCE PO 11/26/20 18:30 11/26/20 18:31 DC 11/26/20 20:07 Pantoprazole Sodium (PROTONIX VIAL for IV PUSH) 40 mg DAILYAC IVP 11/27/20 07:30 11/27/20 11:53 DC 11/27/20 09:31 Justifications for Admission Other Justification Acute metabolic encephalopathy YOLY SMITH MD Nov 27, 2020 12:32
[2020-11-27 15:00] VITALS: BP 129/60
--- NOTE | 2020-11-27 15:41 | NUR ---
Wound/Ostomy Care Wound Type/Assessment: Right foot- evacuated hematoma with palpable tendons, red non-gran and slough. LLE- evacuated hematoma, red granulation. Coccyx and groin maceration. Treatment Recommendations/Plan: R foot- NPWT black foam 125 mmHg intermittent pressure, 10 ml NS for 3 min every 2 hours. LLE- NPWT 125 mmHg intermittent pressure. Groin- nystatin, Coccyx- calazime Education provided: PU prevention, WC POC Offloading surface/device: heel medix Recommended Referrals/Tests: na Discharge Recommendations for dressings: se above
[2020-11-27] MEDS: LACTOBACILLUS RHAMNOSUS GG 1 CAPSULE. PO SCH ×2 (16:18→19:43)
[2020-11-27] MEDS: cefTRIAXone IV Push 1 GM VIAL. IVP SCH (16:18)
[2020-11-27] MEDS: oxyCODONE/APAP 5/325 1 TAB TABLET PO PRN (17:27)
[2020-11-27 19:00] VITALS: BP 110/43
[2020-11-27] MEDS: NYSTATIN TOPICAL POWDER 15GM BOTTLE. TP SCH (19:43)
[2020-11-27 23:00] VITALS: BP 58/43
[2020-11-28 03:00] VITALS: BP 107/57
[2020-11-28 07:00] VITALS: BP 119/60
[2020-11-28 07:37] LABS: BASO % 1 % (0-3); EOS # 0.1 x10^3/uL (0.0-0.7); EOS % 3 % (0-3); HEMATOCRIT 27.4 % (36.0-47.0); HEMOGLOBIN 9.1 g/dL (12.0-15.5); LYMPH # 0.8 x10^3/uL (1.0-4.8); LYMPH % 29 % (24-48); MEAN CORPUSCULAR HEMOGLOBIN 31 pg (25-35); MEAN CORPUSCULAR HGB CONC 33 g/dL (31-37); MEAN CORPUSCULAR VOLUME 94 fL (79-100); MONO # 0.2 x10^3/uL (0.0-1.1); MONO % 7 % (0-9); NEUT # 1.7 x10^3/uL (1.8-7.7); NEUT % 59 % (31-73); PLATELET COUNT 73 x10^3/uL (140-400); RED CELL DISTRIBUTION WIDTH 15.8 % (11.5-14.5); WHITE BLOOD COUNT 2.9 x10^3/uL (4.0-11.0)
[2020-11-28 07:54] LABS: CALCIUM 8.6 mg/dL (8.5-10.1); CREATININE 1.1 mg/dL (0.6-1.0); MAGNESIUM 1.9 mg/dL (1.8-2.4); POTASSIUM 3.8 mmol/L (3.5-5.1)
[2020-11-28] MEDS ORDERED: BARIUM SULFATE 60% 355 ML SUSP PO ONE (08:15)
[2020-11-28] MEDS ORDERED: BARIUM SULFATE 340 GM SUSPENSION. PO ONE (08:15)
[2020-11-28] MEDS: LACTOBACILLUS RHAMNOSUS GG 1 CAPSULE. PO SCH ×2 (09:08→21:39)
[2020-11-28] MEDS: PANTOPRAZOLE 40 MG TABLET.DR. PO SCH (09:08)
[2020-11-28] MEDS: NYSTATIN TOPICAL POWDER 15GM BOTTLE. TP SCH ×2 (09:09→21:40)
[2020-11-28] MEDS: oxyCODONE/APAP 5/325 1 TAB TABLET PO PRN (09:10)
--- NOTE | 2020-11-28 09:24 | PDOC ---
Date of Service: DATE: 11/28/20 TIME: 09:19 Objective: Objective: No GI concerns per nurse. Vital Signs: Vital Signs Date Time Temp Pulse Resp B/P (MAP) Pulse Ox O2 Delivery O2 Flow Rate FiO2 11/28/20 09:10 94 Room Air 11/28/20 07:00 97.4 79 18 119/60 (79) 97.4 Labs: Laboratory Tests Test 11/28/20 06:05 White Blood Count 2.9 x10^3/uL Red Blood Count 2.90 x10^6/uL Hemoglobin 9.1 g/dL Hematocrit 27.4 % Mean Corpuscular Volume 94 fL Mean Corpuscular Hemoglobin 31 pg Mean Corpuscular Hemoglobin Concent 33 g/dL Red Cell Distribution Width 15.8 % Platelet Count 73 x10^3/uL Neutrophils (%) (Auto) 59 % Lymphocytes (%) (Auto) 29 % Monocytes (%) (Auto) 7 % Eosinophils (%) (Auto) 3 % Basophils (%) (Auto) 1 % Neutrophils # (Auto) 1.7 x10^3/uL Lymphocytes # (Auto) 0.8 x10^3/uL Monocytes # (Auto) 0.2 x10^3/uL Eosinophils # (Auto) 0.1 x10^3/uL Basophils # (Auto) 0.0 x10^3/uL Sodium Level 141 mmol/L Potassium Level 3.8 mmol/L Chloride Level 105 mmol/L Carbon Dioxide Level 29 mmol/L Anion Gap 7 Blood Urea Nitrogen 17 mg/dL Creatinine 1.1 mg/dL Estimated GFR (Cockcroft-Gault) 50.0 Glucose Level 89 mg/dL Calcium Level 8.6 mg/dL Magnesium Level 1.9 mg/dL Imaging: Esophagram 11/28 pending PE: out of room for esophagram A/P: Cirrhosis - unclear cause - on diuretics and lactulose as outpt (per previous admission H&P) Pancytopenia H/o GERD -- Awaiting esophagram and AMA. Justicifation of Admission Dx: Justifications for Admission: Justification of Admission Dx: Yes BRUNO KRUSE Nov 28, 2020 09:24
[2020-11-28 11:00] VITALS: BP 134/54
[2020-11-28 15:00] VITALS: BP 138/74
--- NOTE | 2020-11-28 15:03 | PDOC ---
[employer] PROGRESS NOTE Date of Service DOS: DATE: 11/28/20 TIME: 15:02 Chief Complaint Chief Complaint Acute metabolic encephalopathy GAVINO due to vasomotor nephropathy Acute urinary retention due to bladder outlet obstruction Liver cirrhosis MELD score of 13 Elevated ammonia levels Severe protein malnutrition History of bladder suspension Hypothyroidism History of DVT Admit to hospitalist service for further management GI consult Continue ceftriaxone due to bladder outlet obstruction concerning for possible UTI and SBP prophylaxis considering findings of varices Lactulose as needed to maintain bowel movements at least 2-3 times per day Martinez catheter placement to relieve bladder outlet obstruction Heparin for DVT prophylaxis Protonix GI prophylaxis ADA diet CODE STATUS unknown at this time Discussed with RN and SW Disposition inpatient management as above DPOA: Jim Cabrera History of Present Illness History of Present Illness 64-year-old female with past medical history of DVT, chronic back pain, GERD, liver cirrhosis, hypothyroidism who comes in from [facility] due to altered mental status and hypotension. Patient had systolic blood pressure of 80s before presentation to the hospital. Patient was also recently admitted here due to a left leg hematoma that got debrided. Apparently the patient's baseline is alert and oriented x3. 11/27/2020 No acute events overnight. Patient seen and examined bedside. More alert today and was able to answer basic questions but still is a poor historian. Does not know why she has cirrhosis and she claims she is not a drinker. Patient's chart, labs, images were reviewed and discussed with RN 11/28/2020 No acute events overnight. Patient seen and examined bedside. Patient is pleasantly confused and more alert today. Completed barium swallow test and will read for results. Also pending antimitochondrial antibody results. Patient's chart, labs, images were reviewed and discussed with RN Vitals/I&O Vitals/I&O: Vital Signs Date Time Temp Pulse Resp B/P (MAP) Pulse Ox O2 Delivery O2 Flow Rate FiO2 11/28/20 11:00 97.6 83 18 134/54 (80) 96 97.6 11/28/20 09:59 Room Air I & O 11/27/20 11/27/20 11/28/20 15:00 23:00 07:00 Intake Total 360 ml 600 ml Balance 360 ml 600 ml Physical Exam General: Alert, Oriented X3, Cooperative Heart: Regular rate Abdomen: Normal bowel sounds Extremities: No clubbing, Other (Multiple bruises on extremities and shakiness with intentional tremors) Skin: No rashes Labs Labs: Laboratory Tests Test 11/28/20 06:05 White Blood Count 2.9 x10^3/uL (4.0-11.0) Red Blood Count 2.90 x10^6/uL (3.50-5.40) Hemoglobin 9.1 g/dL (12.0-15.5) Hematocrit 27.4 % (36.0-47.0) Mean Corpuscular Volume 94 fL (79-100) Mean Corpuscular Hemoglobin 31 pg (25-35) Mean Corpuscular Hemoglobin Concent 33 g/dL (31-37) Red Cell Distribution Width 15.8 % (11.5-14.5) Platelet Count 73 x10^3/uL (140-400) Neutrophils (%) (Auto) 59 % (31-73) Lymphocytes (%) (Auto) 29 % (24-48) Monocytes (%) (Auto) 7 % (0-9) Eosinophils (%) (Auto) 3 % (0-3) Basophils (%) (Auto) 1 % (0-3) Neutrophils # (Auto) 1.7 x10^3/uL (1.8-7.7) Lymphocytes # (Auto) 0.8 x10^3/uL (1.0-4.8) Monocytes # (Auto) 0.2 x10^3/uL (0.0-1.1) Eosinophils # (Auto) 0.1 x10^3/uL (0.0-0.7) Basophils # (Auto) 0.0 x10^3/uL (0.0-0.2) Sodium Level 141 mmol/L (136-145) Potassium Level 3.8 mmol/L (3.5-5.1) Chloride Level 105 mmol/L (98-107) Carbon Dioxide Level 29 mmol/L (21-32) Anion Gap 7 (6-14) Blood Urea Nitrogen 17 mg/dL (7-20) Creatinine 1.1 mg/dL (0.6-1.0) Estimated GFR (Cockcroft-Gault) 50.0 Glucose Level 89 mg/dL (70-99) Calcium Level 8.6 mg/dL (8.5-10.1) Magnesium Level 1.9 mg/dL (1.8-2.4) Assessment and Plan Assessmemt and Plan Problems Medical Problems: (1) Delirium Status: Acute (2) Urinary retention Status: Acute Comment Review of Relevant I have reviewed the following items tracie (where applicable) has been applied. Medications: Current Medications Medications (Trade) Dose Ordered Sig/Lizette Route PRN Reason Start Time Stop Time Status Last Admin Dose Admin Ceftriaxone Sodium (Rocephin) 1 gm Q24H IVP 11/27/20 16:00 11/27/20 16:18 Pantoprazole Sodium (Protonix) 40 mg DAILYAC PO 11/28/20 07:30 11/28/20 09:08 Nystatin (Nystop) 1 zena BID TP 11/27/20 21:00 11/28/20 09:09 Oxycodone/ Acetaminophen (Percocet 5/325) 1 tab PRN Q6HRS PRN PO PAIN, MODERATE-SEVERE 11/27/20 16:45 11/28/20 09:10 Barium Sulfate (Liquid E-Z Paque) 355 ml 1X ONCE PO 11/28/20 08:15 11/28/20 08:16 DC 11/28/20 08:15 Barium Sulfate (E-Z-Hd) 340 gm 1X ONCE PO 11/28/20 08:15 11/28/20 08:16 DC 11/28/20 08:15 Justifications for Admission Other Justification Acute metabolic encephalopathy YOLY SMITH MD Nov 28, 2020 15:03
[2020-11-28] MEDS: cefTRIAXone IV Push 1 GM VIAL. IVP SCH (17:26)
[2020-11-28 19:00] VITALS: BP 102/83
[2020-11-28 23:00] VITALS: BP 146/79
[2020-11-29 03:00] VITALS: BP 175/64
[2020-11-29] MEDS: oxyCODONE/APAP 5/325 1 TAB TABLET PO PRN ×2 (03:43→14:24)
[2020-11-29 04:28] VITALS: BP 155/67
[2020-11-29] MEDS: PANTOPRAZOLE 40 MG TABLET.DR. PO SCH (04:51)
[2020-11-29 07:00] VITALS: BP 105/62
[2020-11-29 07:41] LABS: BASO % 1 % (0-3); EOS # 0.1 x10^3/uL (0.0-0.7); EOS % 4 % (0-3); HEMOGLOBIN 10.1 g/dL (12.0-15.5); LYMPH # 0.9 x10^3/uL (1.0-4.8); LYMPH % 31 % (24-48); MEAN CORPUSCULAR HEMOGLOBIN 32 pg (25-35); MEAN CORPUSCULAR HGB CONC 34 g/dL (31-37); MEAN CORPUSCULAR VOLUME 94 fL (79-100); MONO # 0.2 x10^3/uL (0.0-1.1); MONO % 7 % (0-9); NEUT # 1.8 x10^3/uL (1.8-7.7); NEUT % 58 % (31-73); PLATELET COUNT 82 x10^3/uL (140-400); RED BLOOD COUNT 3.19 x10^6/uL (3.50-5.40); RED CELL DISTRIBUTION WIDTH 16.2 % (11.5-14.5); WHITE BLOOD COUNT 3.1 x10^3/uL (4.0-11.0)
[2020-11-29 07:50] LABS: CALCIUM 8.5 mg/dL (8.5-10.1); CREATININE 1.1 mg/dL (0.6-1.0); MAGNESIUM 1.6 mg/dL (1.8-2.4); POTASSIUM 3.5 mmol/L (3.5-5.1)
--- NOTE | 2020-11-29 09:27 | PDOC ---
Date of Service: DATE: 11/29/20 TIME: 09:24 Subjective: Subjective: Feels fine. Asks if she can go home. Not hungry for breakfast yet. Objective: Objective: 3 stools charted. Vital Signs: Vital Signs Date Time Temp Pulse Resp B/P (MAP) Pulse Ox O2 Delivery O2 Flow Rate FiO2 11/29/20 07:00 97.7 86 17 105/62 (76) 90 Room Air 97.7 Labs: Laboratory Tests Test 11/28/20 13:29 11/29/20 05:50 SARS-CoV-2 Antigen (Rapid) Negative White Blood Count 3.1 x10^3/uL Red Blood Count 3.19 x10^6/uL Hemoglobin 10.1 g/dL Hematocrit 30.0 % Mean Corpuscular Volume 94 fL Mean Corpuscular Hemoglobin 32 pg Mean Corpuscular Hemoglobin Concent 34 g/dL Red Cell Distribution Width 16.2 % Platelet Count 82 x10^3/uL Neutrophils (%) (Auto) 58 % Lymphocytes (%) (Auto) 31 % Monocytes (%) (Auto) 7 % Eosinophils (%) (Auto) 4 % Basophils (%) (Auto) 1 % Neutrophils # (Auto) 1.8 x10^3/uL Lymphocytes # (Auto) 0.9 x10^3/uL Monocytes # (Auto) 0.2 x10^3/uL Eosinophils # (Auto) 0.1 x10^3/uL Basophils # (Auto) 0.0 x10^3/uL Sodium Level 141 mmol/L Potassium Level 3.5 mmol/L Chloride Level 104 mmol/L Carbon Dioxide Level 28 mmol/L Anion Gap 9 Blood Urea Nitrogen 13 mg/dL Creatinine 1.1 mg/dL Estimated GFR (Cockcroft-Gault) 50.0 Glucose Level 76 mg/dL Calcium Level 8.5 mg/dL Magnesium Level 1.6 mg/dL PE: GEN: NAD - was sleeping, unaware of breakfast tray LUNGS: CTAB HEART: RRR ABD: NABS, S/ND/NT NEURO/PSYCH: A & O 3 A/P: Cirrhosis - unclear cause, previously on diuretics Pancytopenia H/o GERD LE wounds -- Esophagram report unfortunately still pending re: ?varices. Awaiting AMA as well. Justicifation of Admission Dx: Justifications for Admission: Justification of Admission Dx: Yes BRUNO KRUSE Nov 29, 2020 09:27
--- NOTE | 2020-11-29 09:35 | RAD ---
ESOPHAGRAM 11/29/2020. Reason for study: Cirrhosis Comparison studies: None. Technique: Esophagram was performed utilizing single contrast thin barium preparation and supine/late ral decubitus position secondary to limited patient mobility. Limited cine evaluation of cervical eso phageal swallow function. Findings: Barium swallow was performed without difficulty. Esophageal peristalsis and motility were d elayed with tertiary contractions, possibly associated with supine positioning. Limited evaluation of mucosal abnormality secondary to single contrast evaluation. There are persistent ventral indentatio ns along the esophagus which could reflect varices. No esophageal diverticulum. Fundus of the stomach was unremarkable. IMPRESSION: 1. Tertiary contractions consistent with presbyesophagus. Next on 2. Ventral indentation along the es ophagus which persists throughout the examination could reflect esophageal varices. Fluoroscopy time: Under one minute Number of images: 36 Electronically signed by: Sarah Avendano MD (11/29/2020 9:33 AM) [id number]
[2020-11-29 10:50] VITALS: BP 98/51
[2020-11-29] MEDS ORDERED: LACT20SO PO (12:31)
--- NOTE | 2020-11-29 12:34 | SNU/HH DC ---
DISCHARGE ORDERS DISCHARGE INFORMATION: DISCHARGE DATE: Nov 29, 2020 FINAL DIAGNOSIS Problems Medical Problems: (1) Delirium Status: Acute (2) Urinary retention Status: Acute CONDITION ON DISCHARGE: Guarded CODE STATUS: Code Status: Full DETENTION: SNF STAY <30 DAYS: Yes POST DISCHARGE ORDERS: ACTIVITY ORDERS: Activity as tolerated WEIGHT BEARING STATUS: As tolerated DIET AFTER DISCHARGE: Cardiac CHECKS AFTER DISCHARGE: CHECKS AFTER DISCHARGE: Weigh Yourself Daily COMMENTS: At least 2 bowel movements per day to avoid AMS FOLLOW-UP: PHYSICIAN FOLLOW-UP: PCP CHAKA after discharge at nursing facility ADDITIONAL FOLLOW-UP: Gastroenterology as scheduled or as needed LAB ORDERS FOR FOLLOW-UP: CBC, CMP, INR TREATMENT/EQUIPMENT ORDERS: Physical Therapy For: Evalulation/Treatment Occupational Therapy For: Evaluation/Treatment DISCHARGE MEDICATIONS: Home Meds Active Scripts Lactulose (LACTULOSE) 20 Gm/30 Ml Solution, 20 GM PO PRN BID PRN for CONSTIPATION for 30 Days, #60 MISC 2 Refills Prov:YOLY SMITH MD 11/29/20 Reported Medications Pregabalin (Pregabalin) 75 Mg Capsule, 75 MG PO TID for neuropathy, CAP 11/16/20 Pantoprazole Sodium (PANTOPRAZOLE SODIUM ) 40 Mg Tablet.dr, 40 MG PO DAILYAC for GERD, TAB 11/16/20 Multivit,Ther Iron,Ca,Fa & Min (THERA-M CAPLET) 1 Each Tablet, 1 TAB PO DAILY for supplement for 30 Days, #30 TAB 0 Refills 11/16/20 Lactobacillus Rhamnosus Gg (CULTURELLE) 1 Each Capsule, 1 CAP PO DAILY for probiotic for 30 Days, #30 CAP 0 Refills 11/16/20 Duloxetine Hcl (CYMBALTA) 60 Mg Capsule.dr, 1 CAP PO DAILY for depression, #90 CAP 3 Refills 11/16/20 Cyclobenzaprine Hcl (CYCLOBENZAPRINE HCL) 10 Mg Tablet, 1 TAB PO TID for muscle relaxant, #90 TAB 11/16/20 Discontinued Reported Medications Spironolactone (SPIRONOLACTONE) 50 Mg Tablet, 1 TAB PO DAILY for diuretic, #30 TAB 5 Refills 11/16/20 Sennosides/Docusate Sodium (SENNA PLUS TABLET) 1 Each Tablet, 1 TAB PO PRN DAILY PRN for CONSTIPATION for 20 Days, TAB 0 Refills 11/16/20 Potassium Chloride (Klor-Con 10) 10 Meq Tablet.er, 1 TAB PO DAILY for supplement for 30 Days, #30 TAB 0 Refills 11/16/20 Mag Hydrox/Aluminum Hyd/Simeth (Mag-Al Hydrox-Simeth Max Susp) 30 Ml Oral.susp, 5 ML PO PRN Q6HRS PRN for GERD, MISC 11/16/20 Lactulose (LACTULOSE) 20 Gm/30 Ml Solution, 20 GM PO PRN TID PRN for CONSTIPATION, MISC 11/16/20 Furosemide (FUROSEMIDE) 40 Mg Tablet, 1 TAB PO DAILY for diuretic, #30 TAB 5 Refills 11/16/20 Docusate Sodium (DOCUSATE SODIUM) 100 Mg Capsule, 1 CAP PO BID PRN for CON STIPATION for 7 Days, #14 CAP 0 Refills 11/16/20 Cyproheptadine Hcl (CYPROHEPTADINE HCL) 4 Mg Tablet, 1 TAB PO BID for antihistamine, #60 TAB 11/16/20 Citalopram Hydrobromide (CITALOPRAM HBR) 20 Mg Tablet, 1 TAB PO DAILY for antidepressant, #30 TAB 5 Refills 11/16/20 Acetaminophen (TYLENOL) 325 Mg Tablet, 650 MG PO PRN TID PRN for FEVER > 100.3'F, TAB 11/16/20 Discontinued Scripts Oxycodone Hcl (OXYCODONE HCL IMMED.RELEASE) 10 Mg Tablet, 10 MG PO PRN Q6HRS PRN for PAIN for 15 Days, #90 TAB 0 Refills Prov:CESAR NANCE MD 11/21/20 Oxycodone Hcl (OXYCODONE HCL IMMED.RELEASE) 10 Mg Tablet, 10 MG PO PRN Q6HRS PRN for PAIN for 15 Days, #90 TAB 0 Refills Prov:CESAR NANCE MD 11/21/20 YOLY SMITH MD Nov 29, 2020 12:34
[2020-11-29] MEDS: LACTOBACILLUS RHAMNOSUS GG 1 CAPSULE. PO SCH (14:24)
[2020-11-29] MEDS: NYSTATIN TOPICAL POWDER 15GM BOTTLE. TP SCH (14:25)
--- NOTE | 2020-11-29 15:30 | NUR ---
Wound/Ostomy Care Wound Type/Assessment: Pt seen for wound care follow up with Laura WASSERMAN for a Right foot hematoma and a LLE- evacuated hematoma s/p surgical debridement. Coccyx ulcerations have since healed, no open areas noted, calazime cream applied. Wound vac dressings removed from LLE and R dorsal foot wounds prior to d/c to [facility], wounds cleaned, measured and photographed. LLE wound is beefy red and 100% granulated, no exposed structures visualized. R dorsal foot remains dusky brown with necrotic tissue in the base, edges beginning to pull in some red granulation tissue. Treatment Recommendations/Plan: NPWT to LLE and R foot at -125 mmHg continuous suction, Y-connected, change per Laura beckham at [facility]. Pt's [facility] [place] vac applied for d/c to facility. Groin- nystatin powder, Coccyx- calazime Education provided: PU prevention, WC POC Offloading surface/device: heel medix Recommended Referrals/Tests: na Discharge Recommendations for dressings: see treatment plan above
--- NOTE | 2020-11-29 15:43 | NUR ---
pt was discharged back to [facility] today. called report to Nessa at 1445. pt was picked up by [facility] at 1545, WC had to change her wound dressings prior to her leaving. Oscar Lockett RN
[2020-11-30] MEDS ORDERED: OXYC1TAB15 PO (09:39)
== END 2020-11-29 15:56 | DRG 432 ==
LOC: ER 14:20 → ED HOLD 18:06 → 5 SOUTH 19:14
PROVIDERS: ADMIT Internal Medicine; ATTEND Internal Medicine
DX: K74.60 Unspecified cirrhosis of liver (principal); N17.0 Acute kidney failure with tubular necrosis; G93.41 Metabolic encephalopathy; E43 Unspecified severe protein-calorie malnutrition; D61.818 Other pancytopenia; I85.10 Secondary esophageal varices without bleeding; K76.6 Portal hypertension; E72.20 Disorder of urea cycle metabolism, unspecified; N13.30 Unspecified hydronephrosis; N32.0 Bladder-neck obstruction; R33.8 Other retention of urine; I95.9 Hypotension, unspecified; E03.9 Hypothyroidism, unspecified; K21.9 Gastro-esophageal reflux disease without esophagitis; M54.16 Radiculopathy, lumbar region; Z86.718 Personal history of other venous thrombosis and embolism; Z90.49 Acquired absence of other specified parts of digestive tract; Z90.710 Acquired absence of both cervix and uterus; D64.9 Anemia, unspecified; G89.29 Other chronic pain; Z20.822 Contact with and (suspected) exposure to COVID-19; Z68.26 Body mass index [BMI] 26.0-26.9, adult
CPT/HCPCS: 36415; 70450; 71045; 74177; 74220; 80048; 80053; 82140; 82607; 82962; 83516; 83540; 83550; 83605; 83735; 84100; 84484; 85025; 85045; 85610; 86705; 86709; 86803; 87340; 87426; 96361; 96374; C9113; J0696; J7030; Q9967; U0003; U0005; 97535-GO; 99285-25; G0378

== ENCOUNTER → 2020-12-12 | Outpatient (CLI) | payer MEDICARE ==
[2020-11-29 10:50] VITALS: BP 98/51
[~2020-12-12] MED LIST changes: -DULO60CA6 PO; +DULO60CA7 PO; +OXYC1TAB15 PO
== END ==
LOC: SPEC 01:04
PROVIDERS: ATTEND Internal Medicine
DX: G93.41 Metabolic encephalopathy (principal)
CPT/HCPCS: 36415; 82140

== ENCOUNTER 2020-12-15 12:44 | Emergency (ER) | payer MEDICARE ==
[~2020-12-15] VITALS: Ht 152.4 cm; Wt 113.6 kg
[2020-12-15 13:25] VITALS: BP 111/57
--- NOTE | 2020-12-15 13:57 | RAD ---
4 view right knee HISTORY: Pain AP lateral oblique and sunrise views There is gross osteopenia. This limits sensitivity for possible nondisplaced fracture. There is a sma ll effusion. The visualized osseous structures appear grossly intact. Impression: Small effusion. No acute bony abnormality identified. Clinical correlation suggested. Electronically signed by: Marvin Figueroa III, MD (12/15/2020 1:55 PM) [facility]
--- NOTE | 2020-12-15 14:32 | PHYS DOC ---
Past Medical History Additional Past Medical Histor: BILAT LOWER LEG WOUNDS/WOUND VAC Past Surgical History: Cholecystectomy, Hysterectomy, Lumbar Laminectomy, TURP, Other Smoking Status: Former Smoker Alcohol Use: None General Adult EDM: Chief Complaint: LOWEREXTREMITY INJURY HPI: HPI: Patient is a 65 year old female who presents to the ED today complaining of throbbing intermittent right knee pain, symptoms have been going on for 8 days. Patient denies any injury. States the pain is worse on ambulation. Denies anything relieving the pain. Review of Systems: Review of Systems: Constitutional: Denies fever or chills. [] Musculoskeletal: Reports right knee pain Integument: Denies rash. [] Neurologic: Denies headache, focal weakness or sensory changes. [] Psychiatric: Denies depression or anxiety. [] Heart Score: C/O Chest Pain: N/A Risk Factors: Risk Factors: DM, Current or recent (<one month) smoker, HTN, HLP, family history of CAD, obesity. Risk Scores: Score 0 - 3: 2.5% MACE over next 6 weeks - Discharge Home Score 4 - 6: 20.3% MACE over next 6 weeks - Admit for Clinical Observation Score 7 - 10: 72.7% MACE over next 6 weeks - Early Invasive Strategies Allergies: Allergies: Allergies Coded Allergies Type Severity Reaction Last Updated Verified prednisone Allergy Intermediate 11/16/20 Yes Physical Exam: PE: Constitutional: Well developed, well nourished, no acute distress, non-toxic appearance. [] Back: Right knee with no obvious deformity. Bruising noted on the anterior as pect of the right knee, small amount of swelling noted on the right anterior knee. No tenderness on palpation of the right knee. Patient is morbidly obese. Range of motion is limited to the right knee some of which due to her weight. +2 right pedal pulse. Cap refill less than 2 s the right toes. Sensation intact in the right lower extremity Extremities: No tenderness, no cyanosis, no clubbing, ROM intact, no edema. [] Neurologic: Alert and oriented X 3, normal motor function, normal sensory function, no focal deficits noted. [] Psychologic: Affect normal, judgement normal, mood normal. [] Current Patient Data: Vital Signs: Vital Signs Date Time Temp Pulse Resp B/P (MAP) Pulse Ox O2 Delivery O2 Flow Rate FiO2 10/9/21 13:25 97.5 90 20 111/57 (75) 98 Room Air 97.5 EKG: EKG: [] Radiology/Procedures: Radiology/Procedures: []PROCEDURE: KNEE RIGHT 4V 4 view right knee HISTORY: Pain AP lateral oblique and sunrise views There is gross osteopenia. This limits sensitivity for possible nondisplaced fracture. There is a small effusion. The visualized osseous structures appear grossly intact. Impression: Small effusion. No acute bony abnormality identified. Clinical correlation suggested. Electronically signed by: Elaine De La Cruz III, MD (12/15/2020 1:55 PM) [facility] DICTATED and SIGNED BY: ELAINE DE LA CRUZ III, MD DATE: 12/15/20 [id number] 0 Course & Med Decision Making: Course & Med Decision Making Pertinent Labs and Imaging studies reviewed. (See chart for details) Patient is a 65-year-old female presenting to the ED today with right knee pain for 2 weeks, no known injury. Right knee x-rays interpreted by radiologist were negative for any acute findings, noted for small joint effusion. Varinder bandage applied to the right knee by the operations and maintenance technican, neurovascular exam done by the tech is negative. F/u with Ortho in one week Dragon Disclaimer: Dragon Disclaimer: This electronic medical record was generated, in whole or in part, using a voice recognition dictation system. Departure Departure Impression: Primary Impression: Right knee pain Qualified Codes: M25.561 - Pain in right knee Disposition: 01 HOME / SELF CARE / HOMELESS Condition: STABLE Referrals: ANGELICA HARPER MD (PCP) PAT RAMOS MD follow up in one week Patient Instructions: Knee Pain, Omcg-ul-Hynt Additional Instructions: You were seen for right knee pain, your right knee x-rays are negative for any acute findings. You have small amount of fluid in your knee. Keep the Varinder bandage provided as needed on your knee. Try to ice and elevate the extremity. Follow-up with orthopedic doctor or your own doctor in 1 week REID GIMENEZ APRN Dec 15, 2020 14:32
== END 2020-12-15 15:16 | disposition home or self-care (01) ==
LOC: ER 12:44
DX: M25.561 Pain in right knee (principal); Z88.8 Allergy status to other drugs, medicaments and biological substances
CPT/HCPCS: 73564; 99284

== ENCOUNTER → 2020-12-18 | Outpatient (CLI) | payer MEDICARE ==
[2020-12-15 13:25] VITALS: BP 111/57
--- NOTE | 2020-12-18 16:12 | RAD ---
EXAM: Mandible 4 views. HISTORY: Jaw pain and edema. COMPARISON: None. FINDINGS: No fractures are identified. The visualized paranasal sinuses appear normally aerated. Mode rate degenerative changes of the cervical spine are incompletely evaluated. IMPRESSION: 1. No fracture or clear lesions. CT is more sensitive if there is persistent concern. Electronically signed by: Cori Zepeda MD (12/18/2020 4:10 PM) [id number]
== END ==
LOC: RAD 12:32
PROVIDERS: ATTEND Internal Medicine
DX: R68.84 Jaw pain (principal); R60.9 Edema, unspecified; M47.812 Spondylosis without myelopathy or radiculopathy, cervical region
CPT/HCPCS: 70110

== ENCOUNTER → 2021-01-01 | Outpatient (CLI) | payer MEDICARE, OTHER ==
[2020-12-15 13:25] VITALS: BP 111/57
[~2021-01-01] MED LIST changes: +CYCL10TA19 PO; -CYCL10TA2 PO; +POTA-112 PO; -POTA10TA6 PO
[2021-01-01 05:53] LABS: ALBUMIN 1.7 g/dL (3.4-5.0); ALBUMIN/GLOBULIN RATIO 0.5 (1.0-1.7); CALCIUM 7.7 mg/dL (8.5-10.1); CREATININE 0.7 mg/dL (0.6-1.0); POTASSIUM 3.3 mmol/L (3.5-5.1); TOTAL BILIRUBIN 1.3 mg/dL (0.2-1.0); TOTAL PROTEIN 5.4 g/dL (6.4-8.2)
== END ==
LOC: SPEC 00:07
PROVIDERS: ATTEND Internal Medicine
DX: G93.41 Metabolic encephalopathy (principal)
CPT/HCPCS: 36415; 80053; 82140

== ENCOUNTER → 2021-01-08 | Outpatient (CLI) | payer MEDICARE, OTHER ==
[2020-12-15 13:25] VITALS: BP 111/57
[2021-01-08 12:08] LABS: BILIRUBIN,URINE SMALL (NEG); CLARITY,URINE CLEAR; COLOR,URINE AMBER; NITRITE,URINE NEGATIVE (NEG); PH,URINE 5.5 (<5.0-8.0); PROTEIN,URINE NEGATIVE (NEG-TRACE)
[2021-01-08 12:10] LABS: BACTERIA,URINE FEW /HPF (0-FEW); WBC,URINE >40 /HPF (0-4)
== END ==
LOC: SPEC 11:37
PROVIDERS: ATTEND Internal Medicine
DX: R30.0 Dysuria (principal)
CPT/HCPCS: 81001; 87086

== ENCOUNTER 2021-01-15 11:24 | Inpatient (IN) | payer MEDICARE, OTHER ==
[~2021-01-15] VITALS: Ht 162.6 cm; Wt 113.4 kg
--- NOTE | 2021-01-15 11:44 | ED.ADGEN ---
Past Medical History Additional Past Medical Histor: BILAT LOWER LEG WOUNDS/WOUND VAC Past Surgical History: Cholecystectomy, Hysterectomy, Lumbar Laminectomy, TURP, Other Smoking Status: Former Smoker Alcohol Use: None General Adult HPI: HPI: Patient is a 65-year-old female who arrives via EMS after a reported change in her mental status. Patient has reportedly experienced a decline in her mentation since yesterday into today. Patient was observed to be febrile at her residence and was given Tylenol appropriately. Patient is also being treated for urinary tract infection during this time as well. Patient does reside in a memory care unit and has intervals of being awake and alert. Patient does know her date of as well as where she has however she is not able to provide history otherwise. At this time she denies pain. She does not provide history otherwise. She is awake, alert and uncomfortable appearing Review of Systems: Review of Systems: Unable to obtain due to medical condition/dementia. Current Medications: Current Medications Medications (Trade) Dose Ordered Sig/Lizette Start Time Stop Time Status Last Admin Dose Admin Acetaminophen (Tylenol) 650 mg PRN Q4HRS PRN 01/15/21 13:15 01/16/21 13:14 Ondansetron HCl (Zofran) 4 mg PRN Q8HRS PRN 01/15/21 13:15 01/16/21 13:14 Allergies: Allergies: Allergies Coded Allergies Type Severity Reaction Last Updated Verified prednisone Allergy Intermediate 11/16/20 Yes Physical Exam: PE: Constitutional: Well developed, well nourished, no acute distress, non-toxic appearance. [] HENT: Normocephalic, atraumatic, bilateral external ears normal, oropharynx moist, no oral exudates, nose normal. [] Eyes: PERRLA, EOMI, conjunctiva normal, no discharge. [] Neck: Normal range of motion, no tenderness, supple, no stridor. [] Cardiovascular:Heart rate regular rhythm, no murmur [] Lungs & Thorax: Bilateral breath sounds clear to auscultation [] Abdomen: Bowel sounds normal, soft, no tenderness, no masses, no pulsatile masses. [] Skin: Warm, dry, no erythema, no rash. [] Back: No tenderness, no CVA tenderness. [] Extremities: No tenderness, no cyanosis, no clubbing, ROM intact, no edema. [] Neurologic: Confused. Normal motor function, normal sensory function, no focal deficits noted. [] Psychologic: Affect normal, judgement normal, mood normal. [] Current Patient Data: Labs: Laboratory Tests Test 01/15/21 11:30 01/15/21 11:35 01/15/21 11:50 Influenza Type A Antigen Negative (NEGATIVE) Influenza Type B Antigen Negative (NEGATIVE) SARS-CoV-2 Antigen (Rapid) Negative (NEGATIVE) White Blood Count 3.2 x10^3/uL (4.0-11.0) L Red Blood Count 2.71 x10^6/uL (3.50-5.40) L Hemoglobin 8.3 g/dL (12.0-15.5) L Hematocrit 24.5 % (36.0-47.0) L Mean Corpuscular Volume 91 fL (79-100) Mean Corpuscular Hemoglobin 31 pg (25-35) Mean Corpuscular Hemoglobin Concent 34 g/dL (31-37) Red Cell Distribution Width 16.4 % (11.5-14.5) H Platelet Count 55 x10^3/uL (140-400) L Neutrophils (%) (Auto) 58 % (31-73) Lymphocytes (%) (Auto) 30 % (24-48) Monocytes (%) (Auto) 8 % (0-9) Eosinophils (%) (Auto) 3 % (0-3) Basophils (%) (Auto) 1 % (0-3) Neutrophils # (Auto) 1.9 x10^3/uL (1.8-7.7) Lymphocytes # (Auto) 1.0 x10^3/uL (1.0-4.8) Monocytes # (Auto) 0.3 x10^3/uL (0.0-1.1) Eosinophils # (Auto) 0.1 x10^3/uL (0.0-0.7) Basophils # (Auto) 0.0 x10^3/uL (0.0-0.2) Sodium Level 139 mmol/L (136-145) Potassium Level 3.6 mmol/L (3.5-5.1) Chloride Level 104 mmol/L (98-107) Carbon Dioxide Level 29 mmol/L (21-32) Anion Gap 6 (6-14) Blood Urea Nitrogen 13 mg/dL (7-20) Creatinine 0.7 mg/dL (0.6-1.0) Estimated GFR (Cockcroft-Gault) 84.0 BUN/Creatinine Ratio 19 (6-20) Glucose Level 87 mg/dL (70-99) Calcium Level 7.4 mg/dL (8.5-10.1) L Total Bilirubin 1.0 mg/dL (0.2-1.0) Aspartate Amino Transferase (AST) 29 U/L (15-37) Alanine Aminotransferase (ALT) 15 U/L (14-59) Alkaline Phosphatase 153 U/L (46-116) H Ammonia 33 mcmol/L (11-34) Troponin I High Sensitivity 5 ng/L (4-50) HC-Jni-V-Type Natriuretic Peptide 355 pg/mL (0-124) H Total Protein 5.6 g/dL (6.4-8.2) L Albumin 1.7 g/dL (3.4-5.0) L Albumin/Globulin Ratio 0.4 (1.0-1.7) L Urine Collection Type U cath Urine Color Yellow Urine Clarity Clear Urine pH 7.0 (<5.0-8.0) Urine Specific [place] <=1.005 (1.000-1.030) Urine Protein Negative mg/dL (NEG-TRACE) Urine Glucose (UA) Negative mg/dL (NEG) Urine Ketones (Stick) Trace mg/dL (NEG) Urine Blood Trace (NEG) Urine Nitrite Positive (NEG) Urine Bilirubin Negative (NEG) Urine Urobilinogen Dipstick 1.0 mg/dL (0.2 mg/dL) Urine Leukocyte Esterase Large (NEG) Urine RBC 3-5 /HPF (0-2) Urine WBC Tntc /HPF (0-4) Urine Bacteria Many /HPF (0-FEW) Laboratory Tests 01/15/21 11:35 Laboratory Tests 01/15/21 11:35 Vital Signs: Vital Signs Date Time Temp Pulse Resp B/P (MAP) Pulse Ox O2 Delivery O2 Flow Rate FiO2 01/15/21 12:21 86 18 123/60 (81) 96 Room Air 01/15/21 11:25 99.3 99.3 EKG: EKG: [] EKG was obtained at 11:35 AM and reveals a sinus rhythm with a ventricular rate of 93 bpm. There are no acute ST/T wave changes otherwise to denote ischemia. Heart Score: C/O Chest Pain: No Risk Factors: Risk Factors: DM, Current or recent (<one month) smoker, HTN, HLP, family history of CAD, obesity. Risk Scores: Score 0 - 3: 2.5% MACE over next 6 weeks - Discharge Home Score 4 - 6: 20.3% MACE over next 6 weeks - Admit for Clinical Observation Score 7 - 10: 72.7% MACE over next 6 weeks - Early Invasive Strategies Radiology/Procedures: Radiology/Procedures: [][facility] [address] [place] [address] IMAGING REPORT Signed PATIENT: JESSICA POWERS ACCOUNT: [id number] : 1955 LOCATION: ER AGE: 65 SEX: F EXAM STATUS: PRE ER ORD. PHYSICIAN: JEM MAHAN DO REASON: Altered mental status PROCEDURE: CT HEAD WO CONTRAST EXAMINATION: CT HEAD/BRAIN WO CLINICAL HISTORY: Altered mental status TECHNIQUE: Serial axial images without IV contrast were obtained from the vertex to the foramen magnum. CT Dose Reduction Employed: One or more of the following individualized dose reduction techniques were utilized for this examination: 1. Automated exposure control 2. Adjustment of the mA and/or kV according to patient size 3. Use of iterative reconstruction technique. COMPARISON: 11/26/2020 FINDINGS: Acute Change: No evidence of an acute infarct or other acute parenchymal process. Hemorrhage: No evidence of acute intracranial hemorrhage. Mass Lesion/Mass Effect: No evidence of intracranial mass or extraaxial fluid collection. No significant mass effect. Chronic Change: Patchy hypoattenuation in the supratentorial white matter, no nspecific but likely represents mild to moderate microvascular ischemia. Atherosclerotic calcification of the anterior and posterior circulation. Parenchyma: Mild to moderate generalized volume loss. Ventricles: Ventricular enlargement concordant with degree of parenchymal volume loss. Paranasal Sinuses and Skull Base: Visualized paranasal sinuses clear. Visualized skull base and soft tissues unremarkable. IMPRESSION: No evidence of acute intracranial abnormality or significant interval change. Electronically signed by: Frantz Cano DO (01/15/2021 12:39 PM) [facility] DICTATED and SIGNED BY: FRANTZ CANO DO DATE: 01/15/21 [id number] [facility] [address] [place] [address] IMAGING REPORT Signed PATIENT: JESSICA POWERS ACCOUNT: [id number] : 1955 LOCATION: ER AGE: 65 SEX: F EXAM STATUS: PRE ER ORD. PHYSICIAN: JEM MAHAN DO REASON: Fever DRAWING BLOOD AT 1140AM PROCEDURE: PORTABLE CHEST 1V XR CHEST 1V History: Reason: Fever DRAWING BLOOD AT 1140AM / Spl. Instructions: / History: Comparison: November 26, [address] November 01, 2020 Findings: No consolidation or pleural effusion. Normal heart size. No pneumothorax. E levation of the right hemidiaphragm, unchanged. Surgical clips right upper quadrant. Unchanged linear hyperdensities within the right lower lung, may relate to prior postoperative changes. Impression: 1. No acute cardiopulmonary process. Electronically signed by: Papo Lucio DO (01/15/2021 12:46 PM) [id number] DICTATED and SIGNED BY: PAPO LUCIO DO DATE: 01/15/21 [id number] 0 Course & Med Decision Making: Course & Med Decision Making Pertinent Labs and Imaging studies reviewed. (See chart for details) [] Sierra Disclaimer: Sierra Disclaimer: This electronic medical record was generated, in whole or in part, using a voice recognition dictation system. Departure Departure Impression: Primary Impression: Urinary tract infection Additional Impressions: Pancytopenia Altered mental status History of dementia Disposition: ADMITTED INPATIENT Admitting Physician: LORY Condition: STABLE Referrals: ANGELICA HARPER MD (PCP) Problem Qualifiers JEM MAHAN DO Jan 15, 2021 11:44
[2021-01-15 12:00] LABS: BASO % 1 % (0-3); EOS # 0.1 x10^3/uL (0.0-0.7); EOS % 3 % (0-3); HEMATOCRIT 24.5 % (36.0-47.0); HEMOGLOBIN 8.3 g/dL (12.0-15.5); LYMPH % 30 % (24-48); MEAN CORPUSCULAR HEMOGLOBIN 31 pg (25-35); MEAN CORPUSCULAR HGB CONC 34 g/dL (31-37); MEAN CORPUSCULAR VOLUME 91 fL (79-100); MONO # 0.3 x10^3/uL (0.0-1.1); MONO % 8 % (0-9); NEUT # 1.9 x10^3/uL (1.8-7.7); NEUT % 58 % (31-73); PLATELET COUNT 55 x10^3/uL (140-400); RED BLOOD COUNT 2.71 x10^6/uL (3.50-5.40); RED CELL DISTRIBUTION WIDTH 16.4 % (11.5-14.5); WHITE BLOOD COUNT 3.2 x10^3/uL (4.0-11.0)
[2021-01-15 12:07] LABS: BILIRUBIN,URINE NEGATIVE (NEG); CLARITY,URINE CLEAR; COLOR,URINE YELLOW; NITRITE,URINE POSITIVE (NEG); PROTEIN,URINE NEGATIVE (NEG-TRACE)
[2021-01-15 12:10] LABS: CALCIUM 7.4 mg/dL (8.5-10.1); CREATININE 0.7 mg/dL (0.6-1.0); POTASSIUM 3.6 mmol/L (3.5-5.1)
[2021-01-15 12:15] LABS: ALBUMIN 1.7 g/dL (3.4-5.0); ALBUMIN/GLOBULIN RATIO 0.4 (1.0-1.7); TOTAL PROTEIN 5.6 g/dL (6.4-8.2)
[2021-01-15 12:19] LABS: BACTERIA,URINE MANY /HPF (0-FEW); WBC,URINE TNTC /HPF (0-4)
[2021-01-15 12:34] LABS: INFLUENZA A PATIENT NEGATIVE (NEGATIVE); INFLUENZA B PATIENT NEGATIVE (NEGATIVE)
--- NOTE | 2021-01-15 12:42 | RAD ---
EXAMINATION: CT HEAD/BRAIN WO CLINICAL HISTORY: Altered mental status TECHNIQUE: Serial axial images without IV contrast were obtained from the vertex to the foramen magnu m. CT Dose Reduction Employed: One or more of the following individualized dose reduction techniques izabel e utilized for this examination: 1. Automated exposure control 2. Adjustment of the mA and/or kV ac cording to patient size 3. Use of iterative reconstruction technique. COMPARISON: 11/26/2020 FINDINGS: Acute Change: No evidence of an acute infarct or other acute parenchymal process. Hemorrhage: No evidence of acute intracranial hemorrhage. Mass Lesion/Mass Effect: No evidence of intracranial mass or extraaxial fluid collection. No signific ant mass effect. Chronic Change: Patchy hypoattenuation in the supratentorial white matter, nonspecific but likely rep resents mild to moderate microvascular ischemia. Atherosclerotic calcification of the anterior and po sterior circulation. Parenchyma: Mild to moderate generalized volume loss. Ventricles: Ventricular enlargement concordant with degree of parenchymal volume loss. Paranasal Sinuses and Skull Base: Visualized paranasal sinuses clear. Visualized skull base and soft tissues unremarkable. IMPRESSION: No evidence of acute intracranial abnormality or significant interval change. Electronically signed by: Frantz Johnson DO (01/15/2021 12:39 PM) [facility]
--- NOTE | 2021-01-15 12:48 | RAD ---
XR CHEST 1V History: Reason: Fever DRAWING BLOOD AT 1140AM / Spl. Instructions: / History: Comparison: November 26, [address] November 01, 2020 Findings: No consolidation or pleural effusion. Normal heart size. No pneumothorax. Elevation of the right eder diaphragm, unchanged. Surgical clips right upper quadrant. Unchanged linear hyperdensities within the right lower lung, may relate to prior postoperative changes. Impression: 1. No acute cardiopulmonary process. Electronically signed by: Papo Lucio DO (01/15/2021 12:46 PM) [id number]
--- NOTE | 2021-01-15 13:14 | EKG ---
[facility] [address] [place] [address] Test Date: 2021-01-15 Test Time: 11:35:52 Pat Name: JESSICA POWERS Department: Room: Gender: F Assembling Motor Builder: : 1955 Requested By: JEM MAHAN Order Number: [id number] Reading MD: Shiv Whitehead MD Measurements Intervals [place] Rate: 93 P: 32 DE: 178 QRS: 39 QRSD: 96 T: 0 QT: 352 QTc: 440 Interpretive Statements SINUS RHYTHM NON-SPECIFIC ST/T CHANGES Electronically Signed On 01-20-2021 14:12:48 GUARDIAN AD LITEM by Shiv Whitehead MD
--- NOTE | 2021-01-15 13:14 | PDOC1 ---
History and Physical Date of Admission Date of Admission DATE: 01/15/21 TIME: 13:10 Identification/Chief Complaint Chief Complaint Confusion Source Source: Patient History of Present Illness History of Present Illness Ms Rdz is a 65yo female with PMHx Anemia, DVT, GERD, Hypertension, Hypothyroidism, idiopathic cirrhosis, and bilateral lower extremity wounds who comes to ED via EMS from SNF for concerns for worsening confusion. CT and chest radiograph with no acute abnormalities. Labs with WBC 3.2, Hb 8.3, platelets 55, NA 139, K3.6, BUN 13, CR 0.7, glucose 87, calcium 7.4, bilirubin 1, AST 29, ALT 15, alk phos 153, ammonia 33, high- sensitivity troponin V NT proBNP 355, lactic acid 1.2, albumin 1.7, UA with large leuk esterase positive nitrites. Rapid influenza negative rapid COVID-19 negative. EKG sinus rate 93 bpm normal axis and intervals T wave flattening in anterior lateral leads no ST segment elevations or depressions. Past Medical History Pulmonary: Pulmonary embolus GI: GERD Heme/Onc: Anemia NOS Musculoskeletal: low back pain Endocrine: Hypothyroidism Past Surgical History Past Surgical History Bladder sling Past Surgical History: Hysterectomy (TAHBSO), Other (Lumbar fusion) Family History Family History: Hypertension Social History Smoke: Quit ALCOHOL: none Drugs: None Current Problem List Problem List Problems Medical Problems: (1) Altered mental status Status: Acute (2) History of dementia Status: Acute (3) Pancytopenia Status: Acute (4) Urinary tract infection Status: Acute Current Medications Current Medications Active Scripts Active Percocet 5-325 Mg Tablet (Oxycodone/Acetaminophen) 1 Each Tablet 1 Tab PO QIDPRN PRN MDD 4 Tablet(s) Percocet 5-325 Mg Tablet (Oxycodone/Acetaminophen) 1 Each Tablet 1 Tab PO QIDPRN PRN MDD 4 Tablet(s) Lactulose 20 Gm/30 Ml Solution 20 Gm PO PRN BID PRN 30 Days Reported Pregabalin 75 Mg Capsule 75 Mg PO TID Pantoprazole Sodium (Pantoprazole Sodium) 40 Mg Tablet.dr 40 Mg PO DAILYAC Thera-M Caplet (Multivit,Ther Iron,Ca,Fa & Min) 1 Each Tablet 1 Tab PO DAILY 30 Days Culturelle (Lactobacillus Rhamnosus Gg) 1 Each Capsule 1 Cap PO DAILY 30 Days Cymbalta (Duloxetine Hcl) 60 Mg Capsule. 1 Cap PO DAILY Cyclobenzaprine Hcl 10 Mg Tablet 1 Tab PO TID Allergies Allergies: Coded Allergies: prednisone (Verified Allergy, Intermediate, 11/16/20) ROS Review of System 11 point ROS completed but unreliable due to confusion General: YES: Fatigue, Malaise PSYCHOLOGICAL ROS: YES: Disorientation, Memory difficulties Genitourinary: YES Incontinence, YES Retention, YES Discharge Neurological: Yes Confusion Skin: Yes Dry Skin, Yes Rash, Yes Skin Lesion Changes Physical Exam General: Alert, Cooperative, mild distress HEENT: Atraumatic, PERRLA, EOMI, Other (Dry tachy oral mucosa, dry cracked lips) Abdomen: Normal bowel sounds, Soft, No tenderness, No hepatosplenomegaly, No masses Extremities: No clubbing, No cyanosis, No edema, Normal pulses Skin: Other (Bilateral lower extremity wounds L>R, wrapped, no active bleeding, serous discharge) Neuro: Cranial nerves 3-12 NL, Reflexes 2+, Other (Moving all 4 limbs) Psych/Mental Status: Other (Confused) Vitals Vitals Vital Signs Date Time Temp Pulse Resp B/P (MAP) Pulse Ox O2 Delivery O2 Flow Rate FiO2 01/15/21 12:21 86 18 123/60 (81) 96 Room Air 01/15/21 11:25 99.3 99.3 Labs Labs Laboratory Tests Test 01/15/21 11:30 01/15/21 11:35 01/15/21 11:50 Influenza Type A Antigen Negative (NEGATIVE) Influenza Type B Antigen Negative (NEGATIVE) SARS-CoV-2 Antigen (Rapid) Negative (NEGATIVE) White Blood Count 3.2 x10^3/uL (4.0-11.0) Red Blood Count 2.71 x10^6/uL (3.50-5.40) Hemoglobin 8.3 g/dL (12.0-15.5) Hematocrit 24.5 % (36.0-47.0) Mean Corpuscular Volume 91 fL (79-100) Mean Corpuscular Hemoglobin 31 pg (25-35) Mean Corpuscular Hemoglobin Concent 34 g/dL (31-37) Red Cell Distribution Width 16.4 % (11.5-14.5) Platelet Count 55 x10^3/uL (140-400) Neutrophils (%) (Auto) 58 % (31-73) Lymphocytes (%) (Auto) 30 % (24-48) Monocytes (%) (Auto) 8 % (0-9) Eosinophils (%) (Auto) 3 % (0-3) Basophils (%) (Auto) 1 % (0-3) Neutrophils # (Auto) 1.9 x10^3/uL (1.8-7.7) Lymphocytes # (Auto) 1.0 x10^3/uL (1.0-4.8) Monocytes # (Auto) 0.3 x10^3/uL (0.0-1.1) Eosinophils # (Auto) 0.1 x10^3/uL (0.0-0.7) Basophils # (Auto) 0.0 x10^3/uL (0.0-0.2) Sodium Level 139 mmol/L (136-145) Potassium Level 3.6 mmol/L (3.5-5.1) Chloride Level 104 mmol/L (98-107) Carbon Dioxide Level 29 mmol/L (21-32) Anion Gap 6 (6-14) Blood Urea Nitrogen 13 mg/dL (7-20) Creatinine 0.7 mg/dL (0.6-1.0) Estimated GFR (Cockcroft-Gault) 84.0 BUN/Creatinine Ratio 19 (6-20) Glucose Level 87 mg/dL (70-99) Calcium Level 7.4 mg/dL (8.5-10.1) Total Bilirubin 1.0 mg/dL (0.2-1.0) Aspartate Amino Transf (AST/SGOT) 29 U/L (15-37) Alanine Aminotransferase (ALT/SGPT) 15 U/L (14-59) Alkaline Phosphatase 153 U/L (46-116) Ammonia 33 mcmol/L (11-34) Troponin I High Sensitivity 5 ng/L (4-50) KB-Esm-O-Type Natriuretic Peptide 355 pg/mL (0-124) Total Protein 5.6 g/dL (6.4-8.2) Albumin 1.7 g/dL (3.4-5.0) Albumin/Globulin Ratio 0.4 (1.0-1.7) Urine Collection Type U cath Urine Color Yellow Urine Clarity Clear Urine pH 7.0 (<5.0-8.0) Urine Specific [place] <=1.005 (1.000-1.030) Urine Protein Negative mg/dL (NEG-TRACE) Urine Glucose (UA) Negative mg/dL (NEG) Urine Ketones (Stick) Trace mg/dL (NEG) Urine Blood Trace (NEG) Urine Nitrite Positive (NEG) Urine Bilirubin Negative (NEG) Urine Urobilinogen Dipstick 1.0 mg/dL (0.2 mg/dL) Urine Leukocyte Esterase Large (NEG) Urine RBC 3-5 /HPF (0-2) Urine WBC Tntc /HPF (0-4) Urine Bacteria Many /HPF (0-FEW) Laboratory Tests Test 01/15/21 11:30 01/15/21 11:35 01/15/21 11:50 Influenza Type A Antigen Negative (NEGATIVE) Influenza Type B Antigen Negative (NEGATIVE) SARS-CoV-2 Antigen (Rapid) Negative (NEGATIVE) White Blood Count 3.2 x10^3/uL (4.0-11.0) Red Blood Count 2.71 x10^6/uL (3.50-5.40) Hemoglobin 8.3 g/dL (12.0-15.5) Hematocrit 24.5 % (36.0-47.0) Mean Corpuscular Volume 91 fL (79-100) Mean Corpuscular Hemoglobin 31 pg (25-35) Mean Corpuscular Hemoglobin Concent 34 g/dL (31-37) Red Cell Distribution Width 16.4 % (11.5-14.5) Platelet Count 55 x10^3/uL (140-400) Neutrophils (%) (Auto) 58 % (31-73) Lymphocytes (%) (Auto) 30 % (24-48) Monocytes (%) (Auto) 8 % (0-9) Eosinophils (%) (Auto) 3 % (0-3) Basophils (%) (Auto) 1 % (0-3) Neutrophils # (Auto) 1.9 x10^3/uL (1.8-7.7) Lymphocytes # (Auto) 1.0 x10^3/uL (1.0-4.8) Monocytes # (Auto) 0.3 x10^3/uL (0.0-1.1) Eosinophils # (Auto) 0.1 x10^3/uL (0.0-0.7) Basophils # (Auto) 0.0 x10^3/uL (0.0-0.2) Sodium Level 139 mmol/L (136-145) Potassium Level 3.6 mmol/L (3.5-5.1) Chloride Level 104 mmol/L (98-107) Carbon Dioxide Level 29 mmol/L (21-32) Anion Gap 6 (6-14) Blood Urea Nitrogen 13 mg/dL (7-20) Creatinine 0.7 mg/dL (0.6-1.0) Estimated GFR (Cockcroft-Gault) 84.0 BUN/Creatinine Ratio 19 (6-20) Glucose Level 87 mg/dL (70-99) Calcium Level 7.4 mg/dL (8.5-10.1) Total Bilirubin 1.0 mg/dL (0.2-1.0) Aspartate Amino Transf (AST/SGOT) 29 U/L (15-37) Alanine Aminotransferase (ALT/SGPT) 15 U/L (14-59) Alkaline Phosphatase 153 U/L (46-116) Ammonia 33 mcmol/L (11-34) Troponin I High Sensitivity 5 ng/L (4-50) JO-Mge-V-Type Natriuretic Peptide 355 pg/mL (0-124) Total Protein 5.6 g/dL (6.4-8.2) Albumin 1.7 g/dL (3.4-5.0) Albumin/Globulin Ratio 0.4 (1.0-1.7) Urine Collection Type U cath Urine Color Yellow Urine Clarity Clear Urine pH 7.0 (<5.0-8.0) Urine Specific [place] <=1.005 (1.000-1.030) Urine Protein Negative mg/dL (NEG-TRACE) Urine Glucose (UA) Negative mg/dL (NEG) Urine Ketones (Stick) Trace mg/dL (NEG) Urine Blood Trace (NEG) Urine Nitrite Positive (NEG) Urine Bilirubin Negative (NEG) Urine Urobilinogen Dipstick 1.0 mg/dL (0.2 mg/dL) Urine Leukocyte Esterase Large (NEG) Urine RBC 3-5 /HPF (0-2) Urine WBC Tntc /HPF (0-4) Urine Bacteria Many /HPF (0-FEW) Images Images Chest radiograph: No consolidation or pleural effusion. Normal heart size. No pneumothorax. Elevation of the right hemidiaphragm, unchanged. Surgical clips right upper quadrant. Unchanged linear hyperdensities within the right lower lung, may relate to prior postoperative changes. Impression: 1. No acute cardiopulmonary process. CT head w/o contrast: Acute Change: No evidence of an acute infarct or other acute parenchymal process. Hemorrhage: No evidence of acute intracranial hemorrhage. Mass Lesion/Mass Effect: No evidence of intracranial mass or extraaxial fluid collection. No significant mass effect. Chronic Change: Patchy hypoattenuation in the supratentorial white matter, nonspecific but likely represents mild to moderate microvascular ischemia. Atherosclerotic calcification of the anterior and posterior circulation. Parenchyma: Mild to moderate generalized volume loss. Ventricles: Ventricular enlargement concordant with degree of parenchymal volume loss. Paranasal Sinuses and Skull Base: Visualized paranasal sinuses clear. Visualized skull base and soft tissues unremarkable. IMPRESSION: No evidence of acute intracranial abnormality or significant interval change. CT A/P 11/26/2020 FINDINGS: Heart size is normal. No pericardial effusion. Linear bandlike opacity noted at the lung bases. No pleural effusion. Liver demonstrate a nodular contour. Gallbladder is absent. Spleen is enlarged measuring up to 17 cm in long axis. Pancreas and adrenals are unremarkable. Gallbladder is absent. Mildly delayed enhancement of the kidneys bilaterally. There is mild bilateral hydronephrosis. No renal or ureteral calculi are identified. Bladder is markedly distended and appears thin-walled. Uterus is absent. No abnormal adnexal mass. Moderate amount of stool is noted in the colon. Appendix is not identified. No free intra-abdominal air or fluid. No obstruction. Abdominal aorta has a normal course and caliber. Abdominal vasculature is patent. No enlarged intra-abdominal lymph nodes are identified. Compression fractures of the L3 and L5 vertebral bodies with vertebroplasty changes are noted. Numerous chronic appearing bilateral rib fractures. No acute fracture or suspicious osseous lesion. IMPRESSION: 1. Bladder is markedly dilated. Correlate for bladder outlet obstruction. 2. Mild bilateral hydronephrosis which can also be seen in setting of bladder outlet obstruction. No renal or ureteral calculi are identified. 3. Cirrhotic morphology of the liver with secondary sequela of portal hypertension including splenomegaly and abdominal varices. VTE Prophylaxis Ordered VTE Prophylaxis Devices: No VTE Pharmacological Prophylaxi: Contraindicated Assessment/Plan Assessment/Plan A/P: Acute encephalopathy - likely multifactorial metabolic with chronic hepatic encephalopathy and acute UTI. Would decrease sedating meds (cyclobenzaprine, lyrica) Abnormal UA - culture from 01/08 NGTD. Will repeat culture. empiric rocephin Pancytopenia - likely related to liver disease of idiopathic etiology Cirrhotic liver - noted with secondary sequela of portal hypertension including splenomegaly and abdominal varices on CT over a year ago GERD - controlled w/ PPI H/o LLE DVT - still on Eliquis. Was started 09/2020 while at [facility] in [place] Acute urinary retention due to bladder outlet obstruction - has blanco placed Elevated ammonia levels Severe protein calorie malnutrition History of bladder suspension Hypothyroidism Lumbar radiculopathy. Gastroesophageal reflux disease with varices on CT Lumbago sciatica. Cognitive communication deficit. Bilateral lower extremity wounds - seeing wound care. S/p left leg tibia hematoma evacuation. Wound care to see FEN - General diet PPX - eliquis FULL CODE Dispo - inpatient Justifications for Admission Other Justification Acute metabolic encephalopathy JHOAN RIVERA MD Jan 15, 2021 13:14
[2021-01-15] MEDS ORDERED: ONDANSETRON PF 4 MG/2 ML VIAL. IVP PRN ×2 (13:15→13:45)
[2021-01-15] MEDS ORDERED: ACETAMINOPHEN 325 MG TABLET. PO PRN (13:15)
[2021-01-15] MEDS: LACTULOSE 20 GM/30 ML SOLUTION. PO SCH ×2 (13:45→20:05)
[2021-01-15] MEDS ORDERED: SALIVA STIMULANT AGENT 44ML SPRAY BOTTLE. PO PRN (14:30)
--- NOTE | 2021-01-15 14:37 | PDOC2 ---
GI CONSULT Date of Service: DATE: 01/15/21 TIME: 14:22 Reason For Consult: Confusion/liver disease. HPI: HPI: 65 y/o female known to us. Brought to ER this occasion due to change in mental status and more confusion. Has history of cryptogenic cirrhosis we saw her for in November. Thought at that time liver disease known to someone based on med list which included lactulose. Today awake but cannot provide any meaningful history. Apparently was receiving treatment for [facility] at the [facility]. History obtained from available records. H/o GERD usually on daily PPI. No PUD, Prior grace. No pancreatic history. Last admission hepatitis markers, iron studies and AMAb negative, No diarrhea, constipation or overt bleeding. Last time we saw seemed to indicate prior ascites. Unclear if any prior endoscopy. PMH: PMH: Hypothyroidism, DVT, cognitive communication deficit, lumbar radiculopathy; had bilateral hydronephrosis on CT last admit. S/p lumbar fusion, AKHIL/BSO, bladder suspension, vertebroplasty. FH: Family History: No pertinent hx Social History: Smoke: No ALCOHOL: none Drugs: None ROS: Not obtainable from patient. Vitals: Vitals: Vital Signs Date Time Temp Pulse Resp B/P (MAP) Pulse Ox O2 Delivery O2 Flow Rate FiO2 01/15/21 12:21 86 18 123/60 (81) 96 Room Air 01/15/21 11:25 99.3 99.3 Labs: Labs: Laboratory Tests Test 01/15/21 11:30 01/15/21 11:35 01/15/21 11:50 Influenza Type A Antigen Negative (NEGATIVE) Influenza Type B Antigen Negative (NEGATIVE) SARS-CoV-2 Antigen (Rapid) Negative (NEGATIVE) White Blood Count 3.2 x10^3/uL (4.0-11.0) Red Blood Count 2.71 x10^6/uL (3.50-5.40) Hemoglobin 8.3 g/dL (12.0-15.5) Hematocrit 24.5 % (36.0-47.0) Mean Corpuscular Volume 91 fL (79-100) Mean Corpuscular Hemoglobin 31 pg (25-35) Mean Corpuscular Hemoglobin Concent 34 g/dL (31-37) Red Cell Distribution Width 16.4 % (11.5-14.5) Platelet Count 55 x10^3/uL (140-400) Neutrophils (%) (Auto) 58 % (31-73) Lymphocytes (%) (Auto) 30 % (24-48) Monocytes (%) (Auto) 8 % (0-9) Eosinophils (%) (Auto) 3 % (0-3) Basophils (%) (Auto) 1 % (0-3) Neutrophils # (Auto) 1.9 x10^3/uL (1.8-7.7) Lymphocytes # (Auto) 1.0 x10^3/uL (1.0-4.8) Monocytes # (Auto) 0.3 x10^3/uL (0.0-1.1) Eosinophils # (Auto) 0.1 x10^3/uL (0.0-0.7) Basophils # (Auto) 0.0 x10^3/uL (0.0-0.2) Sodium Level 139 mmol/L (136-145) Potassium Level 3.6 mmol/L (3.5-5.1) Chloride Level 104 mmol/L (98-107) Carbon Dioxide Level 29 mmol/L (21-32) Anion Gap 6 (6-14) Blood Urea Nitrogen 13 mg/dL (7-20) Creatinine 0.7 mg/dL (0.6-1.0) Estimated GFR (Cockcroft-Gault) 84.0 BUN/Creatinine Ratio 19 (6-20) Glucose Level 87 mg/dL (70-99) Lactic Acid Level 1.2 mmol/L (0.4-2.0) Calcium Level 7.4 mg/dL (8.5-10.1) Total Bilirubin 1.0 mg/dL (0.2-1.0) Aspartate Amino Transf (AST/SGOT) 29 U/L (15-37) Alanine Aminotransferase (ALT/SGPT) 15 U/L (14-59) Alkaline Phosphatase 153 U/L (46-116) Ammonia 33 mcmol/L (11-34) Troponin I High Sensitivity 5 ng/L (4-50) NO-Lml-A-Type Natriuretic Peptide 355 pg/mL (0-124) Total Protein 5.6 g/dL (6.4-8.2) Albumin 1.7 g/dL (3.4-5.0) Albumin/Globulin Ratio 0.4 (1.0-1.7) Thyroid Stimulating Hormone (TSH) 1.746 uIU/mL (0.358-3.74) Urine Collection Type U cath Urine Color Yellow Urine Clarity Clear Urine pH 7.0 (<5.0-8.0) Urine Specific [place] <=1.005 (1.000-1.030) Urine Protein Negative mg/dL (NEG-TRACE) Urine Glucose (UA) Negative mg/dL (NEG) Urine Ketones (Stick) Trace mg/dL (NEG) Urine Blood Trace (NEG) Urine Nitrite Positive (NEG) Urine Bilirubin Negative (NEG) Urine Urobilinogen Dipstick 1.0 mg/dL (0.2 mg/dL) Urine Leukocyte Esterase Large (NEG) Urine RBC 3-5 /HPF (0-2) Urine WBC Tntc /HPF (0-4) Urine Bacteria Many /HPF (0-FEW) Pancytopenic, elevated AP, low albumin, NORMAL ammonia, abnormal UA. Allergies: Coded Allergies: prednisone (Verified Allergy, Intermediate, 11/16/20) PE: GEN: NAD, confused HEENT: Atraumatic, PERRLA LUNGS: CTAB HEART: RRR, no murmurs ABD: NABS, S/ND/NT, no masses, no clear ascites EXTREMITY: No edema SKIN: No rashes, no jaundice NEURO/PSYCH: Sakina orients to self. Not hyperreflexic. Can't elicit any asterixi. A/P: A/P: IMP: Confusion. Maybe more from the UTI than PSE. Cirrhosis, unknown (to us) cause. NAFLD? GERD. REC: Treat UTI. As able, continue some antisecretory and lactulose. Feed as mentation improves. MARTA NIX MD Jan 15, 2021 14:37
[2021-01-15 15:00] VITALS: BP 123/62
--- NOTE | 2021-01-15 15:44 | NUR ---
Wound care: Pt was seen by LUX Sanchez at and wounds were assessed and dressed prior to arrival to hospital. Wound care planning to see pt tomorrow for dressing changes and multiple compression wrap application. Staff nurse notified of POC.
[2021-01-15 19:00] VITALS: BP 118/54
[2021-01-15] MEDS: ACETAMINOPHEN 325 MG TABLET. PO PRN (20:05)
[2021-01-15 23:00] VITALS: BP 120/56
[2021-01-16 03:00] VITALS: BP 132/55
[2021-01-16 07:00] VITALS: BP 113/41
--- NOTE | 2021-01-16 07:56 | PDOC ---
[employer] PROGRESS NOTE Date of Service DOS: DATE: 01/16/21 TIME: 07:49 Chief Complaint Chief Complaint Acute encephalopathy - metabolic from UTI with chronic hepatic encephalopathy sepsis and acute UTI. repeated UTI, recent augmentin, was on Keflex this [facility] at [facility] Pancytopenia - liver disease and sepsis Cirrhotic liver - with portal hypertension including splenomegaly H/o LLE DVT - still on Eliquis. Was started 09/2020 while at [facility] in [place] Acute urinary retention due to bladder outlet obstruction - has blanco placed Elevated ammonia levels Severe protein calorie malnutrition Hypothyroidism Lumbar radiculopathy. and Lumbago sciatica. Bilateral lower extremity wounds - seeing wound care. S/p left leg tibia hematoma evacuation. Wound care History of Present Illness History of Present Illness more alert than yesterday right arm pain no evnet, vitals better she has been treated fro UTI x2 at [facility] the past few weeks, Augmentin for 7 days, that cx was thompson sens, then has been on Keflex before this Vitals/I&O Vitals/I&O: Vital Signs Date Time Temp Pulse Resp B/P (MAP) Pulse Ox O2 Delivery O2 Flow Rate FiO2 01/16/21 03:00 98.6 70 18 132/55 (80) 93 Room Air 98.6 I & O 01/15/21 01/15/21 01/16/21 15:00 23:00 07:00 Intake Total 50 ml 0 ml Output Total 1400 ml 350 ml Balance -1350 ml -350 ml Physical Exam Physical Exam: still confused below her baseline General: Alert, Oriented X3, Cooperative, mild distress Heart: Regular rate Abdomen: Normal bowel sounds, Soft, No tenderness, No hepatosplenomegaly, No masses Extremities: No clubbing, No cyanosis, No edema, Normal pulses Skin: Other (Bilateral lower extremity wounds L>R, wrapped, no active bleeding, serous discharge) Labs Labs: Laboratory Tests Test 01/15/21 11:30 01/15/21 11:35 01/15/21 11:50 Influenza Type A Antigen Negative (NEGATIVE) Influenza Type B Antigen Negative (NEGATIVE) SARS-CoV-2 Antigen (Rapid) Negative (NEGATIVE) White Blood Count 3.2 x10^3/uL (4.0-11.0) Red Blood Count 2.71 x10^6/uL (3.50-5.40) Hemoglobin 8.3 g/dL (12.0-15.5) Hematocrit 24.5 % (36.0-47.0) Mean Corpuscular Volume 91 fL (79-100) Mean Corpuscular Hemoglobin 31 pg (25-35) Mean Corpuscular Hemoglobin Concent 34 g/dL (31-37) Red Cell Distribution Width 16.4 % (11.5-14.5) Platelet Count 55 x10^3/uL (140-400) Neutrophils (%) (Auto) 58 % (31-73) Lymphocytes (%) (Auto) 30 % (24-48) Monocytes (%) (Auto) 8 % (0-9) Eosinophils (%) (Auto) 3 % (0-3) Basophils (%) (Auto) 1 % (0-3) Neutrophils # (Auto) 1.9 x10^3/uL (1.8-7.7) Lymphocytes # (Auto) 1.0 x10^3/uL (1.0-4.8) Monocytes # (Auto) 0.3 x10^3/uL (0.0-1.1) Eosinophils # (Auto) 0.1 x10^3/uL (0.0-0.7) Basophils # (Auto) 0.0 x10^3/uL (0.0-0.2) Sodium Level 139 mmol/L (136-145) Potassium Level 3.6 mmol/L (3.5-5.1) Chloride Level 104 mmol/L (98-107) Carbon Dioxide Level 29 mmol/L (21-32) Anion Gap 6 (6-14) Blood Urea Nitrogen 13 mg/dL (7-20) Creatinine 0.7 mg/dL (0.6-1.0) Estimated GFR (Cockcroft-Gault) 84.0 BUN/Creatinine Ratio 19 (6-20) Glucose Level 87 mg/dL (70-99) Lactic Acid Level 1.2 mmol/L (0.4-2.0) Calcium Level 7.4 mg/dL (8.5-10.1) Total Bilirubin 1.0 mg/dL (0.2-1.0) Aspartate Amino Transf (AST/SGOT) 29 U/L (15-37) Alanine Aminotransferase (ALT/SGPT) 15 U/L (14-59) Alkaline Phosphatase 153 U/L (46-116) Ammonia 33 mcmol/L (11-34) Troponin I High Sensitivity 5 ng/L (4-50) VY-Nob-S-Type Natriuretic Peptide 355 pg/mL (0-124) Total Protein 5.6 g/dL (6.4-8.2) Albumin 1.7 g/dL (3.4-5.0) Albumin/Globulin Ratio 0.4 (1.0-1.7) Thyroid Stimulating Hormone (TSH) 1.746 uIU/mL (0.358-3.74) Urine Collection Type U cath Urine Color Yellow Urine Clarity Clear Urine pH 7.0 (<5.0-8.0) Urine Specific [place] <=1.005 (1.000-1.030) Urine Protein Negative mg/dL (NEG-TRACE) Urine Glucose (UA) Negative mg/dL (NEG) Urine Ketones (Stick) Trace mg/dL (NEG) Urine Blood Trace (NEG) Urine Nitrite Positive (NEG) Urine Bilirubin Negative (NEG) Urine Urobilinogen Dipstick 1.0 mg/dL (0.2 mg/dL) Urine Leukocyte Esterase Large (NEG) Urine RBC 3-5 /HPF (0-2) Urine WBC Tntc /HPF (0-4) Urine Bacteria Many /HPF (0-FEW) Assessment and Plan Assessmemt and Plan Problems Medical Problems: (1) Altered mental status Status: Acute (2) History of dementia Status: Acute (3) Pancytopenia Status: Acute (4) Urinary tract infection Status: Acute Comment Review of Relevant I have reviewed the following items tracie (where applicable) has been applied. Medications: Current Medications Medications (Trade) Dose Ordered Sig/Lizette Route PRN Reason Start Time Stop Time Status Last Admin Dose Admin Acetaminophen (Tylenol) 650 mg PRN Q6HRS PRN PO FEVER > 100.3'F 01/15/21 13:45 01/15/21 20:05 Lactulose (Lactulose) 20 gm BID PO 01/15/21 13:45 01/15/21 20:05 Justifications for Admission Other Justification Acute metabolic encephalopathy ANGELICA HARPER MD Jan 16, 2021 07:56
[2021-01-16] MEDS ORDERED: PIP/TAZO PER PHARMACY MC PRN (08:00)
[2021-01-16] MEDS: LACTOBACILLUS RHAMNOSUS GG 1 CAPSULE. PO SCH (09:20)
[2021-01-16] MEDS: PANTOPRAZOLE 40 MG TABLET.DR. PO SCH (09:20)
[2021-01-16] MEDS: DULoxetine HCL 30 MG CAPSULE.DR PO SCH (09:20)
[2021-01-16] MEDS: MULTIVITAMIN with MINERAL TABLET. PO SCH (09:20)
[2021-01-16] MEDS: LACTULOSE 20 GM/30 ML SOLUTION. PO SCH ×2 (09:20→20:46)
[2021-01-16] MEDS: PIPERACILLIN/TAZOBACTAM 3.375 GM in IV NORMAL SALINE 50ML 50 ML IV SCH ×4 (09:30→23:33)
--- NOTE | 2021-01-16 10:01 | PDOC ---
Date of Service: DATE: 01/16/21 TIME: 09:56 Subjective: Subjective: "I'm just trying to stay steady. When are they bringing my medicine?" Objective: Vital Signs: Vital Signs Date Time Temp Pulse Resp B/P (MAP) Pulse Ox O2 Delivery O2 Flow Rate FiO2 01/16/21 07:00 98.2 89 16 113/41 (65) 93 Room Air 98.2 Labs: Laboratory Tests Test 01/15/21 11:30 01/15/21 11:35 01/15/21 11:50 Influenza Type A Antigen Negative Influenza Type B Antigen Negative SARS-CoV-2 Antigen (Rapid) Negative White Blood Count 3.2 x10^3/uL Red Blood Count 2.71 x10^6/uL Hemoglobin 8.3 g/dL Hematocrit 24.5 % Mean Corpuscular Volume 91 fL Mean Corpuscular Hemoglobin 31 pg Mean Corpuscular Hemoglobin Concent 34 g/dL Red Cell Distribution Width 16.4 % Platelet Count 55 x10^3/uL Neutrophils (%) (Auto) 58 % Lymphocytes (%) (Auto) 30 % Monocytes (%) (Auto) 8 % Eosinophils (%) (Auto) 3 % Basophils (%) (Auto) 1 % Neutrophils # (Auto) 1.9 x10^3/uL Lymphocytes # (Auto) 1.0 x10^3/uL Monocytes # (Auto) 0.3 x10^3/uL Eosinophils # (Auto) 0.1 x10^3/uL Basophils # (Auto) 0.0 x10^3/uL Sodium Level 139 mmol/L Potassium Level 3.6 mmol/L Chloride Level 104 mmol/L Carbon Dioxide Level 29 mmol/L Anion Gap 6 Blood Urea Nitrogen 13 mg/dL Creatinine 0.7 mg/dL Estimated GFR (Cockcroft-Gault) 84.0 BUN/Creatinine Ratio 19 Glucose Level 87 mg/dL Lactic Acid Level 1.2 mmol/L Calcium Level 7.4 mg/dL Total Bilirubin 1.0 mg/dL Aspartate Amino Transf (AST/SGOT) 29 U/L Alanine Aminotransferase (ALT/SGPT) 15 U/L Alkaline Phosphatase 153 U/L Ammonia 33 mcmol/L Troponin I High Sensitivity 5 ng/L RF-Wvp-Z-Type Natriuretic Peptide 355 pg/mL Total Protein 5.6 g/dL Albumin 1.7 g/dL Albumin/Globulin Ratio 0.4 Thyroid Stimulating Hormone (TSH) 1.746 uIU/mL Urine Collection Type U cath Urine Color Yellow Urine Clarity Clear Urine pH 7.0 Urine Specific [place] <=1.005 Urine Protein Negative mg/dL Urine Glucose (UA) Negative mg/dL Urine Ketones (Stick) Trace mg/dL Urine Blood Trace Urine Nitrite Positive Urine Bilirubin Negative Urine Urobilinogen Dipstick 1.0 mg/dL Urine Leukocyte Esterase Large Urine RBC 3-5 /HPF Urine WBC Tntc /HPF Urine Bacteria Many /HPF PE: GEN: NAD LUNGS: clear, room air HEART: RRR ABD: NABS, S/ND/NT NEURO/PSYCH: awake and alert, probably confused A/P: Confusion - better? UTI Cirrhosis Rapid COVID negative -- Still seems a little fuzzy. Continue antibiotics, lactulose. Justicifation of Admission Dx: Justifications for Admission: Justification of Admission Dx: Yes BRUNO KRUSE Jan 16, 2021 10:01
[2021-01-16 11:00] VITALS: BP 132/57
--- NOTE | 2021-01-16 11:22 | NUR ---
[facility] following. Discussed with RN. [facility]E verified pt is a SNF resident at [facility]. Kiara at [facility] is checking how many days pt has remaining and will notify [facility]. [facility] following. Flu negative and Rapid COVID-19 negative. [facility] will continue to follow.
--- NOTE | 2021-01-16 14:31 | NUR ---
Wound/Ostomy Care Wound Type/Assessment: Wound care consult for BLE wounds. Pt is a current pt of Laura Pedraza APRN at . Orders received to wrap bilateral legs with calamine compreflex lite wraps. Pt has healing hematoma to LLE and PU to RLE. Cleansed, pictured and measured wounds. Pt stated she has a sore spot at the top of her buttocks, Pt has stage II PU to right buttock. Treatment Recommendations/Plan: BLE: Leave wraps in place for 1 week. WCRN to redress.R buttock, cleanse wound, apply skin prep and exuderm (hydrocolloid) change every other day. Education provided: Elevate legs, PU prevention, WC POC Offloading surface/device: Float heels on pillows, TQ2H Recommended Referrals/Tests: na Discharge Recommendations for dressings: see above
[2021-01-16 15:00] VITALS: BP 119/65
--- NOTE | 2021-01-16 17:40 | PDOC ---
Infectious Disease Note Vital Sign Vital Signs Vital Signs Date Time Temp Pulse Resp B/P (MAP) Pulse Ox O2 Delivery O2 Flow Rate FiO2 01/16/21 15:00 98.9 94 16 119/65 (83) 95 Room Air 98.9 Labs Micro Microbiology 01/15/21 Blood Culture - Preliminary, Resulted NO GROWTH AFTER 1 DAY Objective Assessment pt seen, consult dictated Plan Plan of Care / PATIENCE GODINEZ MD Jan 16, 2021 17:40
[2021-01-16 19:00] VITALS: BP 137/63
--- NOTE | 2021-01-16 21:22 | CONS ---
DATE OF CONSULTATION: 01/16/2021 REFERRING PHYSICIAN: Dr. Valencia. REASON FOR CONSULTATION: UTI. HISTORY OF PRESENT ILLNESS: This is a 65-year-old female who is a alf resident with dementia, who was sent in for apparently change in mental status. The patient also has some wounds on the lower extremity which she has been following with the wound care center and yesterday, they had put on Profore wraps bilaterally. The patient denies any nausea, vomiting, diarrhea. Denies any chest pain, shortness of breath, abdominal pain, urinary symptoms or bowel symptoms. The patient also denies any fever or chills. The patient is alert, awake, able to communicate, although she does have dementia. PAST MEDICAL HISTORY: Positive for dementia. She has a history of gastroesophageal reflux disease, anemia, chronic back problem, hypothyroidism, lower extremity chronic wounds. Has had hysterectomy, pulmonary embolism. SOCIAL HISTORY: Negative for smoking, alcohol, drug use. The patient is a alf resident. ALLERGIES: Listed as allergic to PREDNISONE. CURRENT MEDICATIONS: The patient is on Zosyn. REVIEW OF SYSTEMS: As in HPI. All other systems reviewed are negative. PHYSICAL EXAMINATION: GENERAL: Alert, oriented female, who appears to be her baseline, able to answer simple questions, but has dementia. Her memory is very poor. VITAL SIGNS: Stable, temperature 98.9, pulse 94, respirations 16, blood pressure 119/65. HEENT: Both pupils are round and reacting. No conjunctival lesion, no lesion in the mouth. NECK: Supple, no JVP, no lymphadenopathy. LUNGS: Clear. HEART: S1, S2, regular. ABDOMEN: Soft, nontender, no organomegaly. EXTREMITIES: No edema or cyanosis. Does have bilateral Profore wrap that was just placed yesterday, hence not opened. NEUROLOGIC: The patient does move all the extremities, but again memory is very poor. LABORATORY DATA: White count is 3.2, hemoglobin 8.3, platelets are 55,000. BUN and creatinine are normal. Urinalysis showed too numerous to count WBC. Influenza screen done, which was negative and COVID negative. Her blood culture is negative. She had a urine culture done on 01/08/2021 which showed no growth. IMPRESSION: 1. Encephalopathy, which I believe it is baseline. Again, I do not know when she came in, it may have been worse, but right now it appears to be baseline. 2. Bilateral lower extremity wounds, chronic, currently Profore has been applied, so was not opened. We will look at it tomorrow or will talk to wound care center to see how it looks. There are no pictures available at this time. 3. Dementia. 4. Anemia. 5. Thrombocytopenia. RECOMMENDATIONS: Probably she does not need any antibiotics, but again the condition of the wounds is not available for me to know. If we get confirmation from the wound care or we be able to see tomorrow, then we may be able to stop the antibiotics if it looks good, Supportive care and the patient probably can be discharged back to her nursing facility, although she may need some workup on her low platelets and low WBC, which she has had before Thank you very much, Dr. Valencia, for giving me opportunity to participate in this patient's care. SHANT NUNEZ: Federico TID: [id number]
[2021-01-16 23:00] VITALS: BP 133/61
[2021-01-17 03:00] VITALS: BP 119/66
[2021-01-17] MEDS: PIPERACILLIN/TAZOBACTAM 3.375 GM in IV NORMAL SALINE 50ML 50 ML IV SCH ×4 (05:30→23:17)
[2021-01-17 07:00] VITALS: BP 116/62
--- NOTE | 2021-01-17 09:41 | PDOC ---
Date of Service: DATE: 01/17/21 TIME: 09:37 Subjective: Subjective: Skipped breakfast because she's had diarrhea. Objective: Vital Signs: Vital Signs Date Time Temp Pulse Resp B/P (MAP) Pulse Ox O2 Delivery O2 Flow Rate FiO2 01/17/21 03:00 98.5 91 16 119/66 (83) 95 Room Air 98.5 Labs: URINE CULTURE Preliminary Preliminary GREATER THAN 100,000 CFU/ML GRAM NEGATIVE RODS on 01/17/21 at 0925 PE: GEN: NAD - laying on side, nurse cleaning her and changing bedding LUNGS: CTAB HEART: RRR ABD: large, soft, non-tender NEURO/PSYCH: A & O x 3 - better A/P: Encephalopathy - better UTI Cirrhosis, thrombocytopenia, ACD Diarrhea on lactulose H/o dementia COVID negative -- Adjust lactulose for goal of 3-4 stools daily. May need to consider checking C Diff considering antibiotic use. Justicifation of Admission Dx: Justifications for Admission: Justification of Admission Dx: Yes BRUNO KRUSE Jan 17, 2021 09:41
[2021-01-17] MEDS: LACTULOSE 20 GM/30 ML SOLUTION. PO SCH ×2 (09:44→19:58)
[2021-01-17] MEDS: MULTIVITAMIN with MINERAL TABLET. PO SCH (09:44)
[2021-01-17] MEDS: PANTOPRAZOLE 40 MG TABLET.DR. PO SCH (09:44)
[2021-01-17] MEDS: LACTOBACILLUS RHAMNOSUS GG 1 CAPSULE. PO SCH (09:44)
[2021-01-17] MEDS: DULoxetine HCL 30 MG CAPSULE.DR PO SCH (09:44)
--- NOTE | 2021-01-17 10:23 | PDOC ---
[employer] PROGRESS NOTE Date of Service DOS: DATE: 01/17/21 TIME: 10:19 Chief Complaint Chief Complaint Acute encephalopathy Sepsis UTI Pancytopenia Cirrhosis History of left lower extremity DVT On chronic anticoagulation Urinary retention Hypothyroidism Severe protein calorie malnutrition Lumbar radiculopathy Lower extremity wounds Acute encephalopathy - metabolic from UTI with chronic hepatic encephalopathy sepsis and acute UTI. repeated UTI, recent augmentin, was on Keflex this week at [facility] Pancytopenia - liver disease and sepsis Cirrhotic liver - with portal hypertension including splenomegaly H/o LLE DVT - still on Eliquis. Was started 09/2020 while at [facility] in [place] Acute urinary retention due to bladder outlet obstruction - has blanco placed Elevated ammonia levels Severe protein calorie malnutrition Hypothyroidism Lumbar radiculopathy. and Lumbago sciatica. Bilateral lower extremity wounds - seeing wound care. S/p left leg tibia hematoma evacuation. Wound care History of Present Illness History of Present Illness 01/17/2021 Patient seen and examined She is pleasantly confused Just had a bowel movement it looks kind of loose the aide is cleaning up the commode Discussed with RN Chart reviewed Vitals/I&O Vitals/I&O: Vital Signs Date Time Temp Pulse Resp B/P (MAP) Pulse Ox O2 Delivery O2 Flow Rate FiO2 01/17/21 07:00 98.0 91 16 116/62 (80) 91 Room Air 98.0 I & O 01/16/21 01/16/21 01/17/21 15:00 23:00 07:00 Intake Total 370 ml 550 ml 100 ml Output Total 750 ml 350 ml Balance 370 ml -200 ml -250 ml Physical Exam General: No acute distress, Other (Pleasantly confused talkative) Heart: Regular rate Abdomen: Normal bowel sounds, Soft, No tenderness, No hepatosplenomegaly, No masses Extremities: No clubbing, No cyanosis, No edema, Normal pulses Skin: Other (Bilateral lower extremity wounds L>R, wrapped, no active bleeding, serous discharge) Assessment and Plan Assessmemt and Plan Problems Medical Problems: (1) Altered mental status Status: Acute (2) History of dementia Status: Acute (3) Pancytopenia Status: Acute (4) Urinary tract infection Status: Acute Acute encephalopathy - metabolic from UTI with chronic hepatic encephalopathy sepsis and acute UTI. repeated UTI, recent augmentin, [facility] Pancytopenia - liver disease and sepsis Cirrhotic liver - with portal hypertension including splenomegaly H/o LLE DVT - still on Eliquis. Was started 09/2020 while at [facility] in [place] Acute urinary retention due to bladder outlet obstruction - has blanco placed Elevated ammonia levels Severe protein calorie malnutrition Hypothyroidism Lumbar radiculopathy. and Lumbago sciatica. Bilateral lower extremity wounds - seeing wound care. S/p left leg tibia hematoma evacuation. Wound half-way meds Wound care consult Continue Zosyn Encourage p.o. intake Trend labs PT OT DVT prophylaxis Full code Probable discharge back to senior care soon Comment Review of Relevant I have reviewed the following items tracie (where applicable) has been applied. Justifications for Admission Other Justification Acute metabolic encephalopathy SUNDAY ANGULO III DO Jan 17, 2021 10:23
[2021-01-17 11:00] VITALS: BP 120/56
--- NOTE | 2021-01-17 12:46 | NUR ---
SW following. Discussed with RN, pt can return to [facility] when medically stable, and after therapy has worked with the patient. SW will continue to follow.
--- NOTE | 2021-01-17 13:06 | PDOC ---
Infectious Disease Note Subjective: Subjective Patient alert awake somewhat confused Complains of abdominal discomfort Has loose bowel movements on lactulose Denies any fever or chills Denies any pain Discussed with RN Vital Signs: Vital Signs Vital Signs Date Time Temp Pulse Resp B/P (MAP) Pulse Ox O2 Delivery O2 Flow Rate FiO2 01/17/21 08:30 Room Air 01/17/21 07:00 98.0 91 16 116/62 (80) 91 98.0 Physical Exam: PHYSICAL EXAM GENERAL: Alert, oriented female, who appears to be her baseline, able to answer simple questions, but has dementia. Her memory is very poor. VITAL SIGNS: Stable, temperature 98.9, pulse 94, respirations 16, blood pressure 119/65. HEENT: Both pupils are round and reacting. No conjunctival lesion, no lesion in the mouth. NECK: Supple, no JVP, no lymphadenopathy. LUNGS: Clear. HEART: S1, S2, regular. ABDOMEN: Soft, nontender, no organomegaly. EXTREMITIES: No edema or cyanosis. Does have bilateral Profore wrap that was just placed yesterday, hence not opened. NEUROLOGIC: The patient does move all the extremities, but again memory is very poor. Medications: Inpatient Meds: Medications reviewed. Labs: Micro RUN DATE: 01/17/21 [facility] LAB *LIVE* PAGE 1 RUN TIME: 1202 Specimen Inquiry -- PATIENT: JESSICA POWERS ACCT: [id number] LOC: [address] [place] [address] U: [id number] AGE/SX: 65/F ROOM: 586 RE01/16/[address]: JHOAN RIVERA MD : 1955 BED: 1 DIS: STATUS: ADM IN TLOC: SPEC #: [id number] MIGUELANGEL: 01/15/21 STATUS: RES REQ #: [id number] RECD: 01/15/[address]: JEM MAHAN DO SOURCE: URINE FOL ENTR: 01/15/[address]: ANGELICA HARPER MD SPDESC: INDWELLING ORDERED: URINE CULTURE Procedure Result URINE CULTURE Preliminary Preliminary GREATER THAN 100,000 CFU/ML GRAM NEGATIVE RODS on 01/17/21 at 0925 FINAL ID= [ESCHERICHIA COLI] GREATER THAN 100,000 CFU/ML [ENTEROCOCCUS FAECIUM] on 01/17/21 at 1158 Testing Performed by: [address] [address] For Inquires, the Physician may contact the Microbiology department at [phone] ESCHERICHIA COLI ENTEROCOCCUS FAECIUM Unless otherwise specified, Testing Performed by: [address] [address] For Inquires, the Physician may contact the Microbiology department at [phone] Objective: Assessment: 1. Encephalopathy, which I believe it is baseline. Again, I do not know when she came in, it may have been worse, but right now it appears to be baseline. 2. Bilateral lower extremity wounds, chronic, currently Profore has been applied, so was not opened. 3. Dementia. 4. Anemia. 5. Thrombocytopenia. 6. E. coli and Enterococcus faecalis UTI 7. Loose bowel movement on lactulose Plan: Plan of Care Continue Zosyn for now Follow-up urine cultures Will need to evaluate wound Hopefully if cultures are back will be able to de-escalate her antibiotics Increased p.o. intake Patient remains on lactulose which is contributing to her diarrhea d/w ARELY Shukla MD Jan 17, 2021 13:06
[2021-01-17 15:00] VITALS: BP 115/55
[2021-01-17 19:00] VITALS: BP 119/54
[2021-01-17 23:06] VITALS: BP 124/51
[2021-01-18 03:12] VITALS: BP 126/54
[2021-01-18] MEDS: PIPERACILLIN/TAZOBACTAM 3.375 GM in IV NORMAL SALINE 50ML 50 ML IV SCH (05:50)
[2021-01-18 05:52] LABS: BASO % 1 % (0-3); EOS # 0.1 x10^3/uL (0.0-0.7); EOS % 6 % (0-3); HEMATOCRIT 24.4 % (36.0-47.0); HEMOGLOBIN 8.1 g/dL (12.0-15.5); LYMPH # 0.7 x10^3/uL (1.0-4.8); LYMPH % 34 % (24-48); MEAN CORPUSCULAR HEMOGLOBIN 30 pg (25-35); MEAN CORPUSCULAR HGB CONC 33 g/dL (31-37); MEAN CORPUSCULAR VOLUME 91 fL (79-100); MONO # 0.2 x10^3/uL (0.0-1.1); MONO % 8 % (0-9); NEUT # 1.1 x10^3/uL (1.8-7.7); NEUT % 52 % (31-73); PLATELET COUNT 79 x10^3/uL (140-400); RED BLOOD COUNT 2.67 x10^6/uL (3.50-5.40); RED CELL DISTRIBUTION WIDTH 16.3 % (11.5-14.5); WHITE BLOOD COUNT 2.2 x10^3/uL (4.0-11.0)
[2021-01-18 06:10] LABS: CALCIUM 7.6 mg/dL (8.5-10.1); CREATININE 0.7 mg/dL (0.6-1.0); POTASSIUM 3.2 mmol/L (3.5-5.1)
--- NOTE | 2021-01-18 06:57 | PDOC ---
Infectious Disease Note Subjective: Subjective Patient alert awake Denies any complaints No further loose bowel movements after stopping lactulose last night Discussed with RN Vital Signs: Vital Signs Vital Signs Date Time Temp Pulse Resp B/P (MAP) Pulse Ox O2 Delivery O2 Flow Rate FiO2 01/18/21 03:12 98.5 90 20 126/54 (78) 94 Room Air 98.5 Physical Exam: PHYSICAL EXAM GENERAL: Alert, oriented female, who appears to be her baseline, able to answer simple questions, but has dementia. Her memory is very poor. VITAL SIGNS: Stable, temperature 98.9, pulse 94, respirations 16, blood pressure 119/65. HEENT: Both pupils are round and reacting. No conjunctival lesion, no lesion in the mouth. NECK: Supple, no JVP, no lymphadenopathy. LUNGS: Clear. HEART: S1, S2, regular. ABDOMEN: Soft, nontender, no organomegaly. EXTREMITIES: No edema or cyanosis. Wound pictures noted in chart, superficial not infected NEUROLOGIC: The patient does move all the extremities, but again memory is very poor. Medications: Inpatient Meds: Medications reviewed. Labs: Lab Laboratory Tests Test 01/18/21 05:00 White Blood Count 2.2 x10^3/uL (4.0-11.0) Red Blood Count 2.67 x10^6/uL (3.50-5.40) Hemoglobin 8.1 g/dL (12.0-15.5) Hematocrit 24.4 % (36.0-47.0) Mean Corpuscular Volume 91 fL (79-100) Mean Corpuscular Hemoglobin 30 pg (25-35) Mean Corpuscular Hemoglobin Concent 33 g/dL (31-37) Red Cell Distribution Width 16.3 % (11.5-14.5) Platelet Count 79 x10^3/uL (140-400) Neutrophils (%) (Auto) 52 % (31-73) Lymphocytes (%) (Auto) 34 % (24-48) Monocytes (%) (Auto) 8 % (0-9) Eosinophils (%) (Auto) 6 % (0-3) Basophils (%) (Auto) 1 % (0-3) Neutrophils # (Auto) 1.1 x10^3/uL (1.8-7.7) Lymphocytes # (Auto) 0.7 x10^3/uL (1.0-4.8) Monocytes # (Auto) 0.2 x10^3/uL (0.0-1.1) Eosinophils # (Auto) 0.1 x10^3/uL (0.0-0.7) Basophils # (Auto) 0.0 x10^3/uL (0.0-0.2) Sodium Level 142 mmol/L (136-145) Potassium Level 3.2 mmol/L (3.5-5.1) Chloride Level 107 mmol/L (98-107) Carbon Dioxide Level 27 mmol/L (21-32) Anion Gap 8 (6-14) Blood Urea Nitrogen 10 mg/dL (7-20) Creatinine 0.7 mg/dL (0.6-1.0) Estimated GFR (Cockcroft-Gault) 84.0 Glucose Level 71 mg/dL (70-99) Calcium Level 7.6 mg/dL (8.5-10.1) Micro RUN DATE: 01/17/21 [facility] LAB *LIVE* PAGE 1 RUN TIME: 1202 Specimen Inquiry PATIENT: JESSICA POWERS ACCT: [id number] LOC: [address] [place] [address] U: [id number] AGE/SX: 65/F ROOM: 586 RE01/16/[address]: JHOAN RIVERA MD : 1955 BED: 1 DIS: STATUS: ADM IN TLOC: SPEC #: [id number] MIGUELANGEL: 01/15/21 STATUS: RES REQ #: [id number] RECD: 01/15/[address]: JEM MAHAN DO SOURCE: URINE FOL ENTR: 01/15/[address]: ANGELICA HARPER MD [facility]: INDWELLING ORDERED: URINE CULTURE Procedure Result URINE CULTURE Preliminary Preliminary GREATER THAN 100,000 CFU/ML GRAM NEGATIVE RODS on 01/17/21 at 0925 FINAL ID= [ESCHERICHIA COLI] GREATER THAN 100,000 CFU/ML [ENTEROCOCCUS FAECIUM] on 01/17/21 at 1158 Testing Performed by: [facility] [place] [address] For Inquires, the Physician may contact the Microbiology department at [phone] ESCHERICHIA COLI ENTEROCOCCUS FAECIUM Unless otherwise specified, Testing Performed by: [place] [address] [place] [address] For Inquires, the Physician may contact the Microbiology department at [phone] Objective: Assessment: 1. Encephalopathy, which I believe it is baseline. Again, I do not know when she came in, it may have been worse, but right now it appears to be baseline. 2. Bilateral lower extremity wounds, chronic, currently Profore has been applied, so was not opened. 3. Dementia. 4. Anemia. 5. Pancytopenia 6. E. coli and Enterococcus faecalis UTI 7. Loose bowel movement on lactulose Plan: Plan of Care Urine culture with E. coli appears to be colonization Wounds are not infected GARRET Ford We will sign off Call with any questions Discussed with ARELY OLIVEIRA MD Jan 18, 2021 06:57
[2021-01-18 07:00] VITALS: BP 140/72
[2021-01-18] MEDS: ACETAMINOPHEN 325 MG TABLET. PO PRN (08:33)
[2021-01-18] MEDS: LACTULOSE 20 GM/30 ML SOLUTION. PO SCH (08:33)
[2021-01-18] MEDS: DULoxetine HCL 30 MG CAPSULE.DR PO SCH (08:33)
[2021-01-18] MEDS: MULTIVITAMIN with MINERAL TABLET. PO SCH (08:33)
[2021-01-18] MEDS: LACTOBACILLUS RHAMNOSUS GG 1 CAPSULE. PO SCH (08:33)
[2021-01-18] MEDS: PANTOPRAZOLE 40 MG TABLET.DR. PO SCH (08:33)
[2021-01-18] MEDS ORDERED: POTASSIUM CHLORIDE 20 MEQ TABLET.ER. PO ONE (09:00)
[2021-01-18] MEDS ORDERED: OXYC1TAB15 PO (10:06)
--- NOTE | 2021-01-18 10:08 | SNU/HH DC ---
DISCHARGE ORDERS DISCHARGE INFORMATION: DISCHARGE DATE: Jan 18, 2021 FINAL DIAGNOSIS encephalopathy weakness liver dysfunciton UTI leg wounds pancytopenia Problems Medical Problems: (1) Altered mental status Status: Acute (2) History of dementia Status: Acute (3) Pancytopenia Status: Acute (4) Urinary tract infection Status: Acute CONDITION ON DISCHARGE: Stable CODE STATUS: Code Status: Full SNF: SNF STAY <30 DAYS: Yes POST DISCHARGE ORDERS: ACTIVITY ORDERS: Activity as tolerated WEIGHT BEARING STATUS: As tolerated DIET AFTER DISCHARGE: Cardiac CHECKS AFTER DISCHARGE: CHECKS AFTER DISCHARGE: Weigh Yourself Daily FOLLOW-UP: LAB ORDERS FOR FOLLOW-UP: CBC, CMP, INR in 5 days TREATMENT/EQUIPMENT ORDERS: ADAPTIVE EQUIPMENT NEEDED: Front wheeled walker, Wheelchair Physical Therapy For: Evalulation/Treatment Occupational Therapy For: Evaluation/Treatment DISCHARGE MEDICATIONS: Home Meds Active Scripts Oxycodone/Apap 5-325 (PERCOCET 5-325 MG TABLET ) 1 Each Tablet, 1 TAB PO QIDPRN PRN for PAIN MDD 4 Tablet(s), #40 TAB 0 Refills Prov:ANGELICA HARPER MD 01/18/21 Lactulose (LACTULOSE) 20 Gm/30 Ml Solution, 20 GM PO PRN BID PRN for CONSTIPATION for 30 Days, #60 MISC 2 Refills Prov:YOLY SMITH MD 11/29/20 Reported Medications Pregabalin (Pregabalin) 75 Mg Capsule, 75 MG PO TID for neuropathy, CAP 11/16/20 Pantoprazole Sodium (PANTOPRAZOLE SODIUM ) 40 Mg Tablet.dr, 40 MG PO DAILYAC for GERD, TAB 11/16/20 Multivit,Ther Iron,Ca,Fa & Min (THERA-M CAPLET) 1 Each Tablet, 1 TAB PO DAILY for supplement for 30 Days, #30 TAB 0 Refills 11/16/20 Lactobacillus Rhamnosus Gg (CULTURELLE) 1 Each Capsule, 1 CAP PO DAILY for probiotic for 30 Days, #30 CAP 0 Refills 11/16/20 Duloxetine Hcl (CYMBALTA) 60 Mg Capsule.dr, 1 CAP PO DAILY for depression, #90 CAP 3 Refills 11/16/20 Cyclobenzaprine Hcl (CYCLOBENZAPRINE HCL) 10 Mg Tablet, 1 TAB PO TID for muscle relaxant, #90 TAB 11/16/20 Discontinued Scripts Oxycodone/Apap 5-325 (PERCOCET 5-325 MG TABLET ) 1 Each Tablet, 1 TAB PO QIDPRN PRN for PAIN MDD 4 Tablet(s), #90 TAB 0 Refills Prov:ANGELICA HARPER MD 01/03/21 ANGELICA HARPER MD Jan 18, 2021 10:08
--- NOTE | 2021-01-18 10:24 | PDOC3 ---
Discharge Summary Visit Information Date of Admission: Jan 16, 2021 Date of Discharge: Jan 18, 2021 Final Diagnosis Acute encephalopathy cognitive decline or progression to dementia Sepsis, UTI, chronic colonization Pancytopenia Cirrhosis of liver, lbas better, History of left lower extremity DVT, On chronic anticoagulation Urinary retention Hypothyroidism Severe protein calorie malnutrition Lumbar radiculopathy Lower extremity wounds - healing weakness and debilty, can walk 10 steps with walker with one person assist up Problems Medical Problems: (1) Altered mental status Status: Acute (2) History of dementia Status: Acute (3) Pancytopenia Status: Acute (4) Urinary tract infection Status: Acute Brief Hospital Course Allergies Allergies Coded Allergies Type Severity Reaction Last Updated Verified prednisone Allergy Intermediate 11/16/20 Yes Vital Signs Vital Signs Date Time Temp Pulse Resp B/P (MAP) Pulse Ox O2 Delivery O2 Flow Rate FiO2 01/18/21 07:00 97.5 95 20 140/72 (94) 99 Room Air 97.5 Lab Results Laboratory Tests Test 01/18/21 05:00 White Blood Count 2.2 x10^3/uL (4.0-11.0) Red Blood Count 2.67 x10^6/uL (3.50-5.40) Hemoglobin 8.1 g/dL (12.0-15.5) Hematocrit 24.4 % (36.0-47.0) Mean Corpuscular Volume 91 fL (79-100) Mean Corpuscular Hemoglobin 30 pg (25-35) Mean Corpuscular Hemoglobin Concent 33 g/dL (31-37) Red Cell Distribution Width 16.3 % (11.5-14.5) Platelet Count 79 x10^3/uL (140-400) Neutrophils (%) (Auto) 52 % (31-73) Lymphocytes (%) (Auto) 34 % (24-48) Monocytes (%) (Auto) 8 % (0-9) Eosinophils (%) (Auto) 6 % (0-3) Basophils (%) (Auto) 1 % (0-3) Neutrophils # (Auto) 1.1 x10^3/uL (1.8-7.7) Lymphocytes # (Auto) 0.7 x10^3/uL (1.0-4.8) Monocytes # (Auto) 0.2 x10^3/uL (0.0-1.1) Eosinophils # (Auto) 0.1 x10^3/uL (0.0-0.7) Basophils # (Auto) 0.0 x10^3/uL (0.0-0.2) Sodium Level 142 mmol/L (136-145) Potassium Level 3.2 mmol/L (3.5-5.1) Chloride Level 107 mmol/L (98-107) Carbon Dioxide Level 27 mmol/L (21-32) Anion Gap 8 (6-14) Blood Urea Nitrogen 10 mg/dL (7-20) Creatinine 0.7 mg/dL (0.6-1.0) Estimated GFR (Cockcroft-Gault) 84.0 Glucose Level 71 mg/dL (70-99) Calcium Level 7.6 mg/dL (8.5-10.1) Laboratory Tests Test 01/18/21 05:00 White Blood Count 2.2 x10^3/uL (4.0-11.0) Red Blood Count 2.67 x10^6/uL (3.50-5.40) Hemoglobin 8.1 g/dL (12.0-15.5) Hematocrit 24.4 % (36.0-47.0) Mean Corpuscular Volume 91 fL (79-100) Mean Corpuscular Hemoglobin 30 pg (25-35) Mean Corpuscular Hemoglobin Concent 33 g/dL (31-37) Red Cell Distribution Width 16.3 % (11.5-14.5) Platelet Count 79 x10^3/uL (140-400) Neutrophils (%) (Auto) 52 % (31-73) Lymphocytes (%) (Auto) 34 % (24-48) Monocytes (%) (Auto) 8 % (0-9) Eosinophils (%) (Auto) 6 % (0-3) Basophils (%) (Auto) 1 % (0-3) Neutrophils # (Auto) 1.1 x10^3/uL (1.8-7.7) Lymphocytes # (Auto) 0.7 x10^3/uL (1.0-4.8) Monocytes # (Auto) 0.2 x10^3/uL (0.0-1.1) Eosinophils # (Auto) 0.1 x10^3/uL (0.0-0.7) Basophils # (Auto) 0.0 x10^3/uL (0.0-0.2) Sodium Level 142 mmol/L (136-145) Potassium Level 3.2 mmol/L (3.5-5.1) Chloride Level 107 mmol/L (98-107) Carbon Dioxide Level 27 mmol/L (21-32) Anion Gap 8 (6-14) Blood Urea Nitrogen 10 mg/dL (7-20) Creatinine 0.7 mg/dL (0.6-1.0) Estimated GFR (Cockcroft-Gault) 84.0 Glucose Level 71 mg/dL (70-99) Calcium Level 7.6 mg/dL (8.5-10.1) Brief Hospital Course Ms. Rdz is a 65 old female, admit with fever, SIRS, wakness and worsening confusion. started on zosyn, roselia causes diarrhea. on lactulose for chronic liver disease. str better than 2 mos ago. mental status better urine cx showed e. coli, similar to before, roselia colonized, ID consulted, dc abx, no furhter course Leg wounds healign, prior cellulitisl Discharge Information Condition at Discharge: Improved Follow Up: Weeks Disposition/Orders: D/C to Another Facility Scheduled Cyclobenzaprine Hcl (Cyclobenzaprine Hcl) 10 Mg Tablet, 1 TAB PO TID for muscle relaxant, #90 (Reported) Entered as Reported by: STEPHANIE OVALLE on 11/16/202202 Last Action: Reviewed on 01/15/211705 by ETHEL ORTA RN Duloxetine Hcl (Cymbalta) 60 Mg Capsule.dr, 1 CAP PO DAILY for depression, #90 Ref 3 (Reported) Entered as Reported by: STEPHANIE OVALLE on 11/16/202202 Last Action: Reviewed on 01/15/211705 by ETHEL ORTA RN Lactobacillus Rhamnosus Gg (Culturelle) 1 Each Capsule, 1 CAP PO DAILY for probiotic for 30 Days, #30 Ref 0 (Reported) Entered as Reported by: STEPHANIE OVALLE on 11/16/202202 Last Action: Reviewed on 01/15/211705 by ETHEL ORTA RN Multivit,Ther Iron,Ca,Fa & Min (Thera-M Caplet) 1 Each Tablet, 1 TAB PO DAILY for supplement for 30 Days, #30 Ref 0 (Reported) Entered as Reported by: STEPHANIE OVALLE on 11/16/202244 Last Action: Reviewed on 01/15/211705 by ETHEL ORTA RN Pantoprazole Sodium (Pantoprazole Sodium ) 40 Mg Tablet.dr, 40 MG PO DAILYAC for GERD, (Reported) Entered as Reported by: STEPHANIE OVALLE on 11/16/202244 Last Action: Reviewed on 01/15/211705 by ETHEL ORTA RN Pregabalin (Pregabalin) 75 Mg Capsule, 75 MG PO TID for neuropathy, (Reported) Entered as Reported by: STEPHANIE OVALLE on 11/16/202244 Last Action: Reviewed on 01/15/211705 by ETHEL ORTA RN Scheduled PRN Lactulose (Lactulose) 20 Gm/30 Ml Solution, 20 GM PO PRN BID PRN for CONSTIPATION for 30 Days, #60 Ref 2 Prescribed by: YOLY SMITH MD on 11/29/20 1231 Last Action: Reviewed on 01/15/211705 by ETHEL ORTA RN Oxycodone/Apap 5-325 (Percocet 5-325 Mg Tablet ) 1 Each Tablet, 1 TAB PO QIDPRN PRN for PAIN MDD 4 Tablet(s), #40 Ref 0 Prescribed by: ANGELICA HARPER on 01/18/21 1007 Discontinued Medications Oxycodone/Apap 5-325 (Percocet 5-325 Mg Tablet ) 1 Each Tablet, 1 TAB PO QIDPRN PRN for PAIN MDD 4 Tablet(s), #90 Ref 0 Prescribed by: ANGELICA HARPER on 01/03/21 1223 Last Action: Reviewed on 01/15/211705 by ETHEL ORTA RN Patient Instructions Patient Instructions > 30 min face to face wiht pt discussed by phone with sonJim, jonel JACQUELINE, full code, rehab to continue, Justicifation of Admission Dx: Justifications for Admission: Justification of Admission Dx: Yes ANGELICA HARPER MD Jan 18, 2021 10:24
[2021-01-18 11:00] VITALS: BP 139/65
[2021-01-18] MEDS ORDERED: FOSFOMYCIN TROMETHAMINE 3 GM PACKET PO ONE (12:30)
--- NOTE | 2021-01-18 13:30 | NUR ---
Discharge Note: Patient was discharge back to [facility]. Patients IV was discontinued without any complications per FINGER GRIP MACHINE OPERATOR. Patient was discharged with blanco catheter. Patient would only drink half of the Fosfomycin which Dr. Mandujano ordered. KOBI Titus was made aware of and the she might need another dose. RN stated she would speak to her physician. Patient was transferred over to [facility] via stretcher, patient had no belongings with her. Patients discharge paperwork was faxed and sent over with patient.
== END 2021-01-18 13:30 | DRG 871 ==
LOC: ER 11:24 → 5 SOUTH 12:35 → OBSVTOIN 01-16 15:23
PROVIDERS: ADMIT Internal Medicine; ATTEND Internal Medicine
DX: A41.9 Sepsis, unspecified organism (principal); G93.41 Metabolic encephalopathy; E43 Unspecified severe protein-calorie malnutrition; D61.818 Other pancytopenia; K76.6 Portal hypertension; M48.56XA Collapsed vertebra, not elsewhere classified, lumbar region, initial encounter for fracture; N13.6 Pyonephrosis; Z68.41 Body mass index [BMI] 40.0-44.9, adult; B95.2 Enterococcus as the cause of diseases classified elsewhere; E03.9 Hypothyroidism, unspecified; F03.90 Unspecified dementia, unspecified severity, without behavioral disturbance, psychotic disturbance, mood disturbance, and anxiety; I10 Essential (primary) hypertension; K21.9 Gastro-esophageal reflux disease without esophagitis; K72.10 Chronic hepatic failure without coma; K74.69 Other cirrhosis of liver; M54.16 Radiculopathy, lumbar region; N32.0 Bladder-neck obstruction; R33.8 Other retention of urine; Z20.822 Contact with and (suspected) exposure to COVID-19; Z79.01 Long term (current) use of anticoagulants; Z82.49 Family history of ischemic heart disease and other diseases of the circulatory system; Z86.711 Personal history of pulmonary embolism; Z86.718 Personal history of other venous thrombosis and embolism; Z87.891 Personal history of nicotine dependence; Z90.710 Acquired absence of both cervix and uterus; Z98.1 Arthrodesis status; Z90.49 Acquired absence of other specified parts of digestive tract; Z88.8 Allergy status to other drugs, medicaments and biological substances; B96.20 Unspecified Escherichia coli [E. coli] as the cause of diseases classified elsewhere; K74.60 Unspecified cirrhosis of liver
CPT/HCPCS: 36415; 70450; 71045; 80048; 80053; 81001; 82140; 83605; 83880; 84443; 84484; 85025; 87040; 87077; 87086; 87186; 87426; 87804; 93005; G0378; G0379; J2543; U0003; U0005; 97530-GP; 97535-GO; 99285-25

== ENCOUNTER → 2021-01-15 | Outpatient (CLI) | payer MEDICARE, OTHER ==
[2021-01-15 08:02] LABS: ALBUMIN 1.6 g/dL (3.4-5.0); ALBUMIN/GLOBULIN RATIO 0.4 (1.0-1.7); CALCIUM 7.4 mg/dL (8.5-10.1); CREATININE 0.9 mg/dL (0.6-1.0); GFR 62.8; POTASSIUM 3.5 mmol/L (3.5-5.1); TOTAL BILIRUBIN 0.9 mg/dL (0.2-1.0); TOTAL PROTEIN 5.6 g/dL (6.4-8.2)
== END ==
LOC: SPEC 02:31
PROVIDERS: ATTEND Internal Medicine
DX: G93.41 Metabolic encephalopathy (principal)
CPT/HCPCS: 36415; 80053; 82140

== ENCOUNTER → 2021-01-29 | Outpatient (CLI) | payer MEDICARE, OTHER ==
[2021-01-18 11:00] VITALS: BP 139/65
[2021-01-29 08:31] LABS: ALBUMIN 1.9 g/dL (3.4-5.0); ALBUMIN/GLOBULIN RATIO 0.4 (1.0-1.7); CALCIUM 7.9 mg/dL (8.5-10.1); CREATININE 0.8 mg/dL (0.6-1.0); POTASSIUM 3.6 mmol/L (3.5-5.1); TOTAL BILIRUBIN 1.2 mg/dL (0.2-1.0); TOTAL PROTEIN 6.4 g/dL (6.4-8.2)
== END ==
LOC: SPEC 01:03
PROVIDERS: ATTEND Internal Medicine
DX: G93.41 Metabolic encephalopathy (principal)
CPT/HCPCS: 36415; 80053; 82140

== ENCOUNTER → 2021-02-12 | Outpatient (CLI) | payer MEDICARE, OTHER ==
[2021-01-18 11:00] VITALS: BP 139/65
[2021-02-12 09:09] LABS: ALBUMIN 1.7 g/dL (3.4-5.0); ALBUMIN/GLOBULIN RATIO 0.4 (1.0-1.7); CALCIUM 7.6 mg/dL (8.5-10.1); CREATININE 0.7 mg/dL (0.6-1.0); POTASSIUM 3.5 mmol/L (3.5-5.1); TOTAL BILIRUBIN 0.7 mg/dL (0.2-1.0); TOTAL PROTEIN 5.7 g/dL (6.4-8.2)
== END ==
LOC: SPEC 07:43
PROVIDERS: ATTEND Internal Medicine
DX: G93.41 Metabolic encephalopathy (principal)
CPT/HCPCS: 36415; 80053; 82140

== ENCOUNTER → 2021-03-04 | Outpatient (CLI) | payer MEDICARE, OTHER ==
[2021-03-04 07:56] LABS: BASO % 1 % (0-3); EOS # 0.1 x10^3/uL (0.0-0.7); EOS % 5 % (0-3); HEMATOCRIT 24.4 % (36.0-47.0); HEMOGLOBIN 8.1 g/dL (12.0-15.5); LYMPH # 0.6 x10^3/uL (1.0-4.8); LYMPH % 36 % (24-48); MEAN CORPUSCULAR HEMOGLOBIN 29 pg (25-35); MEAN CORPUSCULAR HGB CONC 33 g/dL (31-37); MEAN CORPUSCULAR VOLUME 89 fL (79-100); MONO # 0.1 x10^3/uL (0.0-1.1); MONO % 7 % (0-9); NEUT # 0.8 x10^3/uL (1.8-7.7); NEUT % 52 % (31-73); PLATELET COUNT 76 x10^3/uL (140-400); RED BLOOD COUNT 2.75 x10^6/uL (3.50-5.40); RED CELL DISTRIBUTION WIDTH 15.9 % (11.5-14.5)
[2021-03-04 08:17] LABS: WHITE BLOOD COUNT 1.5 x10^3/uL (4.0-11.0)
[2021-03-04 09:01] LABS: BILIRUBIN,URINE NEGATIVE (NEG); COLOR,URINE YELLOW; NITRITE,URINE POSITIVE (NEG); PROTEIN,URINE NEGATIVE (NEG-TRACE)
[2021-03-04 09:04] LABS: BACTERIA,URINE MANY /HPF (0-FEW); CLARITY,URINE CLOUDY; RBC,URINE 0 /HPF (0-2)
[2021-03-04 09:39] LABS: % EOS 4 % (0-5)
[2021-03-04 09:40] LABS: % ATYL 2 % (0-0); % LYMPHS 28 % (24-48); % MONOS 6 % (0-10); % SEGS 60 % (35-66); PLT ESTIMATE DECREASED (ADEQUATE); SMUDGE CELLS PRESENT
== END ==
LOC: SPEC 00:42
PROVIDERS: ATTEND Internal Medicine
DX: N39.0 Urinary tract infection, site not specified (principal)
CPT/HCPCS: 36415; 81001; 82140; 83880; 85007; 85025; 87086

== ENCOUNTER → 2021-03-27 | Outpatient (CLI) | payer MEDICARE, OTHER ==
[~2021-03-27] MED LIST changes: +FURO-68 PO; +NYST15PO9 TP; +OMEP20CA16 PO; +POTA20TA4 PO
[2021-03-27 12:46] LABS: BASO % 0 % (0-3); EOS % 0 % (0-3); HEMATOCRIT 29.4 % (36.0-47.0); HEMOGLOBIN 9.8 g/dL (12.0-15.5); LYMPH # 0.8 x10^3/uL (1.0-4.8); LYMPH % 9 % (24-48); MEAN CORPUSCULAR HEMOGLOBIN 29 pg (25-35); MEAN CORPUSCULAR HGB CONC 33 g/dL (31-37); MEAN CORPUSCULAR VOLUME 88 fL (79-100); MONO # 0.3 x10^3/uL (0.0-1.1); MONO % 3 % (0-9); NEUT # 7.3 x10^3/uL (1.8-7.7); NEUT % 87 % (31-73); PLATELET COUNT 92 x10^3/uL (140-400); RED BLOOD COUNT 3.34 x10^6/uL (3.50-5.40); RED CELL DISTRIBUTION WIDTH 16.8 % (11.5-14.5); WHITE BLOOD COUNT 8.4 x10^3/uL (4.0-11.0)
[2021-03-27 12:47] LABS: BILIRUBIN,URINE SMALL (NEG); CLARITY,URINE TURBID; COLOR,URINE AMBER; NITRITE,URINE POSITIVE (NEG); PH,URINE 8.5 (<5.0-8.0); PROTEIN,URINE 30 mg/dL (NEG-TRACE)
[2021-03-27 12:59] LABS: BACTERIA,URINE MANY /HPF (0-FEW); RBC,URINE FIELD OBSCURED /HPF (0-2); WBC,URINE TNTC /HPF (0-4)
[2021-03-27 13:17] LABS: ALBUMIN 1.7 g/dL (3.4-5.0); ALBUMIN/GLOBULIN RATIO 0.4 (1.0-1.7); CALCIUM 6.5 mg/dL (8.5-10.1); CREATININE 0.9 mg/dL (0.6-1.0); GFR 62.8; TOTAL BILIRUBIN 1.6 mg/dL (0.2-1.0); TOTAL PROTEIN 6.2 g/dL (6.4-8.2)
[2021-03-27 13:27] LABS: POTASSIUM 2.6 mmol/L (3.5-5.1)
== END ==
LOC: SPEC 12:17
PROVIDERS: ATTEND Internal Medicine
DX: R19.7 Diarrhea, unspecified (principal); R05.9 Cough, unspecified
CPT/HCPCS: 36415; 80053; 81001; 85025; 87040; 87086; 87493

== ENCOUNTER → 2021-03-27 | Outpatient (CLI) | payer MEDICARE, OTHER ==
--- NOTE | 2021-03-27 14:07 | RAD ---
Single view of the chest. 03/27/2021 1:24 PM Indication: Reason: COUGH / Comparison: Chest radiograph January 15, 2021 Findings: There is right medial basilar opacity possibly atelectasis or developing infiltrate. No pne umothorax or pleural effusion is seen. Heart size is normal. Bony thorax is intact. IMPRESSION: Right medial basilar opacity, possibly atelectasis or developing infiltrate. Radiographic follow-up recommended. Electronically signed by: Guillermo Salamanca MD (03/27/2021 2:05 PM) [id number]
== END ==
PROVIDERS: ATTEND Internal Medicine
DX: R05.9 Cough, unspecified (principal)
CPT/HCPCS: 71045

== ENCOUNTER 2021-05-06 18:16 | Inpatient (IN) | payer MEDICARE, OTHER ==
[~2021-05-06] VITALS: Ht 165.1 cm; Wt 194.0 kg
[~2021-05-06 18:16] MED LIST changes: +AMOX1TAB58 PO; +AMOX1TAB61 PO; +AMOX500C PO; +Dronabinol PO; +PREG-9 PO; +RIFA550T4 PO
[2021-05-06] MEDS ORDERED: IV NORMAL SALINE 1000ML BAG 1,000 ML IV ONE ×2 (18:45→22:30)
--- NOTE | 2021-05-06 18:46 | PHYS DOC ---
Past Medical History Past Medical History: UTI Additional Past Medical Histor: CAMARILLO FOR RETENTION, Past Medical History Metabolic encephalopathy Urinary retention Fall Weakness Past Surgical History: No Surgical History Smoking Status: Former Smoker Alcohol Use: None Drug Use: None General Adult EDM: Chief Complaint: ALTERED MENTAL STATUS HPI: HPI: Patient is a 65 year old female brought in by EMS from [facility] for evaluation of altered mental status. The facility did not call to given her report, the EMS reported that they were told by the staff there that the patient has been progressively weak with altered mental status for about 1 week. I am unable to procure any meaningful information from the patient herself, secondary to altered mental status, and confusion. The patient has a history of recurrent metabolic encephalopathy. I was able to speak with her son, and he reports that she again progressively declining in June of last year after a fall where and she was on the floor in her home for for 5 days unable to reach the phone or receive assistance. The patient has had dramatic decline in overall physical condition since that time. She has had multiple hospitalizations for similar presentation, encephalopathy, failure to thrive. The patient's son who is here at the bedside, is her power of hospice community liaison. The patient does not reportedly have any advanced directive. Her son reports that for now he would like to keep her a full code. The patient has a history of recurrent urinary tract infection, left lower leg wound, leg hematoma, requiring surgical debridement and wound VAC, liver disease with encephalopathy. Her son reports no history of alcohol use. The patient quit smoking a few years ago reportedly. No reported fevers. When I asked the patient any question, she mumbles incoherently, she is unable to communicate effectively. Review of Systems: Review of Systems: Review of systems is unobtainable secondary to clinical condition. Heart Score: C/O Chest Pain: N/A Risk Factors: Risk Factors: DM, Current or recent (<one month) smoker, HTN, HLP, family history of CAD, obesity. Risk Scores: Score 0 - 3: 2.5% MACE over next 6 weeks - Discharge Home Score 4 - 6: 20.3% MACE over next 6 weeks - Admit for Clinical Observation Score 7 - 10: 72.7% MACE over next 6 weeks - Early Invasive Strategies Current Medications: Current Medications Medications (Trade) Dose Ordered Sig/Lizette Start Time Stop Time Status Last Admin Dose Admin Sodium Chloride 1,000 ml @ 1,000 mls/hr 1X ONCE 05/06/21 18:45 05/06/21 19:44 Allergies: Allergies: Allergies Coded Allergies Type Severity Reaction Last Updated Verified prednisone Allergy Intermediate 03/27/21 Yes I S O L A T I O N *CONTACT* Allergy Unknown 03/27/21 Yes Physical Exam: PE: Constitutional: This patient takes is extremely frail appearing, appears to be very chronically ill-appearing, also acutely ill-appearing. She appears to be HENT: Normocephalic, atraumatic, oropharynx is patent and clear, mucous memb ranes are very dry. TMs are clear bilaterally, external ears normal bilaterally, nares are patent. Very poor dentition, it appears that oral care has not been performed in some time on this patient Eyes: Pupils are equally round and reactive though somewhat sluggish. There is mild scleral icterus. Conjunctival pallor is noted. No nystagmus. Neck: Trachea is midline. No JVD. No tenderness. No meningismus. Cardiovascular: Tachycardic, low 100s, regular, +2 radial pulses bilaterally, +2 posterior tibial pulses bilaterally. Lungs & Thorax: Breath sounds are clear, equal chest rise, no evidence of chest wall trauma, no rales, rhonchi or wheezes. Abdomen: Abdomen is obese, soft, nondistended, no fluid wave appreciated. No apparent tenderness. Normal bowel sounds. She has a large pannus with significant skin maceration, ulceration. Skin: Multiple areas of psoriasis rash on her feet, trunk, abdomen, arms. On her anterior mid left lower extremity/bustamante there appears to be a linear healing wound, there is some moderate surrounding erythema and warmth and induration. There is no palpable fluctuance or purulent material. No active bleeding of this wound. She has multiple areas of skin maceration, breakdown, ulcerations of her pannus, inguinal area and groin. Has ulcerations on her vulva. Skin is significantly malodorous, unkempt. Back: No obvious deformity. Extremities: Bilateral lower extremity edema. Erythema and induration and subtle warmth of the left anterior lower extremity, with overlying linear healing wound, as described above. Psoriasis rash on bilateral dorsal feet. Neurologic: Patient is awake, not alert, unable to assess orientation, she does localize to pain, gag reflex is intact, she does not follow commands. No meaningful verbal response, she mumbles incoherently on occasion. Unable to assess visual salas. Unable to accurately assess cerebellar function. She does very briskly move all 4 extremities equally, she fights briskly on exam, gross motor function appears to be symmetric. Psychologic: Affect is flat Current Patient Data: Vital Signs: Vital Signs Date Time Temp Pulse Resp B/P (MAP) Pulse Ox O2 Delivery O2 Flow Rate FiO2 05/06/21 18:26 98.1 100 24 146/97 (113) 98 Room Air 98.1 EKG: EKG: EKG is interpreted at 1846 Rhythm is sinus tachycardia Rat is 114 bpm marked artifact Warren appears normal No obvious acute ischemia No STEMI Radiology/Procedures: Radiology/Procedures: IMAGING REPORT Signed PATIENT: JESSICA POWERS ACCOUNT: [id number] : 1955 LOCATION: ER AGE: 65 SEX: F EXAM STATUS: REG ER ORD. PHYSICIAN: ELENI KRAMER DO REASON: AMS PROCEDURE: CT HEAD WO CONTRAST CT head without contrast dated 05/06/2021 7:31 PM Comparison: 01/15/2021 CLINICAL INDICATION: Altered mental status TECHNIQUE: Contiguous axial imaging of the head was performed from skull base to vertex. One or more of the following individualized dose reduction techniques were utilized for this examination: 1. Automated exposure control 2. Adjustment of the mA and/or kV according to patient size 3. Use of iterative reconstruction technique. FINDINGS: Ventricles and sulci are mildly prominent for age. No midline shift or mass e ffect. Mild patchy low density in the deep/subcortical periventricular white matter. No hemorrhage or extra-axial collection. Posterior fossa and brainstem unremarkable. Visualized paranasal sinuses and mastoid air cells are clear. No apparent calvarial abnormality. There are atherosclerotic calcifications of the vertebral arteries, left greater than right. IMPRESSION: 1. No evidence of acute intracranial hemorrhage or mass. 2. Mild chronic small vessel ischemic changes and atrophy. Electronically signed by: Holden Lawton MD (05/06/2021 7:32 PM) [facility] [place] and SIGNED BY: HOLDEN LAWTON MD DATE: 05/06/21 [id number] IMAGING REPORT Signed PATIENT: JESSICA POWERS ACCOUNT: [id number] : 1955 LOCATION: ER AGE: 65 SEX: F EXAM STATUS: REG ER ORD. PHYSICIAN: ELENI KRAMER DO REASON: AMS PROCEDURE: PORTABLE CHEST 1V Single view chest dated 05/06/2021 6:59 PM: COMPARISON: 03/27/2021 Clinical Indication: Altered mental status. Findings: Single upright portable exam of the chest was performed. Heart and mediastinal contours are stable. Mild elevation of right hemidiaphragm, unchanged. There is a prominent perihilar linear markings, stable. No consolidation or pleural effusion. No pneumothorax. IMPRESSION: No acute radiographic abnormality. Stable findings compared to 03/27/2021. Electronically signed by: Holden Lawton MD (05/06/2021 6:59 PM) [facility] [place] and SIGNED BY: HOLDEN LAWTON MD DATE: 05/06/21 [id number] Course & Med Decision Making: Course & Med Decision Making Pertinent Labs and Imaging studies reviewed. (See chart for details) IV fluid boluses are given. Urinary catheter was placed. Purulent, cloudy, yellow urine was returned. Empiric antibiotics were ordered, IV vancomycin and IV Zosyn were given. Blood cultures were obtained. Had a lengthy discussion with the patient's son regarding her condition and overall poor prognosis. He wishes to continue making her a full code at this time. I explained that her condition is unlikely to improve significantly, though antibiotic treatment for UTI and sepsis may be of some benefit. He wishes to speak with his siblings further before making any more definitive decisions regarding her advanced directives. I have explained my recommendation for hospitalization. He agrees with this. The patient is excepted for admission by Dr. Cano. Sierra Disclaimer: Sierra Disclaimer: This electronic medical record was generated, in whole or in part, using a voice recognition dictation system. Departure Departure Impression: Primary Impression: Altered mental status Qualified Codes: R41.82 - Altered mental status, unspecified Additional Impressions: Urinary tract infection Lactic acidosis Sepsis Metabolic encephalopathy Failure to thrive Qualified Codes: R62.7 - Adult failure to thrive Multiple wounds of skin Disposition: ADMITTED INPATIENT Admitting Physician: LORY (Dr. Cano) Condition: GUARDED Referrals: ANGELICA HARPER MD (PCP) ELENI KRAMER DO May 06, 2021 18:46
--- NOTE | 2021-05-06 19:02 | RAD ---
Single view chest dated 05/06/2021 6:59 PM: COMPARISON: 03/27/2021 Clinical Indication: Altered mental status. Findings: Single upright portable exam of the chest was performed. Heart and mediastinal contours are stable. M ild elevation of right hemidiaphragm, unchanged. There is a prominent perihilar linear markings, stab le. No consolidation or pleural effusion. No pneumothorax. IMPRESSION: No acute radiographic abnormality. Stable findings compared to 03/27/2021. Electronically signed by: Holden Lawton MD (05/06/2021 6:59 PM) FLOR
--- NOTE | 2021-05-06 19:34 | RAD ---
CT head without contrast dated 05/06/2021 7:31 PM Comparison: 01/15/2021 CLINICAL INDICATION: Altered mental status TECHNIQUE: Contiguous axial imaging of the head was performed from skull base to vertex. One or more of the following individualized dose reduction techniques were utilized for this examinat ion: 1. Automated exposure control 2. Adjustment of the mA and/or kV according to patient size 3. Use of iterative reconstruction technique. FINDINGS: Ventricles and sulci are mildly prominent for age. No midline shift or mass effect. Mild patchy low d ensity in the deep/subcortical periventricular white matter. No hemorrhage or extra-axial collection. Posterior fossa and brainstem unremarkable. Visualized paranasal sinuses and mastoid air cells are clear. No apparent calvarial abnormality. Ther e are atherosclerotic calcifications of the vertebral arteries, left greater than right. IMPRESSION: 1. No evidence of acute intracranial hemorrhage or mass. 2. Mild chronic small vessel ischemic changes and atrophy. Electronically signed by: Holden Lawton MD (05/06/2021 7:32 PM) JAY
[2021-05-06 20:29] LABS: BILIRUBIN,URINE NEGATIVE (NEG); CLARITY,URINE HAZY; COLOR,URINE YELLOW; NITRITE,URINE POSITIVE (NEG); PROTEIN,URINE NEGATIVE (NEG-TRACE)
[2021-05-06] MEDS ORDERED: VANCOMYCIN 1.5 GM in IV NORMAL SALINE 500ML BAG 500 ML IV ONE (20:30)
[2021-05-06] MEDS ORDERED: PIPERACILLIN/TAZOBACTAM 3.375 GM in IV NORMAL SALINE 50ML 50 ML IV ONE (20:30)
[2021-05-06 20:31] LABS: WBC,URINE TNTC /HPF (0-4); YEAST,URINE PRESENT /HPF
[2021-05-06 20:32] LABS: BACTERIA,URINE FEW /HPF (0-FEW)
[2021-05-06 20:45] LABS: BASO % 0 % (0-3); EOS # 0.1 x10^3/uL (0.0-0.7); EOS % 1 % (0-3); HEMATOCRIT 38.2 % (36.0-47.0); HEMOGLOBIN 12.5 g/dL (12.0-15.5); LYMPH # 1.1 x10^3/uL (1.0-4.8); LYMPH % 10 % (24-48); MEAN CORPUSCULAR HEMOGLOBIN 30 pg (25-35); MEAN CORPUSCULAR HGB CONC 33 g/dL (31-37); MEAN CORPUSCULAR VOLUME 92 fL (79-100); MONO # 0.4 x10^3/uL (0.0-1.1); MONO % 3 % (0-9); NEUT # 9.4 x10^3/uL (1.8-7.7); NEUT % 86 % (31-73); PLATELET COUNT 122 x10^3/uL (140-400); RED BLOOD COUNT 4.16 x10^6/uL (3.50-5.40); RED CELL DISTRIBUTION WIDTH 19.6 % (11.5-14.5)
[2021-05-06] MEDS ORDERED: VANCOMYCIN 1.75 GM in IV NORMAL SALINE 500ML BAG 500 ML IV ONE (20:45)
[2021-05-06 21:19] LABS: CALCIUM 7.2 mg/dL (8.5-10.1); CREATININE 0.9 mg/dL (0.6-1.0); GFR 62.8; POTASSIUM 3.9 mmol/L (3.5-5.1)
[2021-05-06 21:34] LABS: ALBUMIN 1.8 g/dL (3.4-5.0); ALBUMIN/GLOBULIN RATIO 0.3 (1.0-1.7); MAGNESIUM 1.6 mg/dL (1.8-2.4); PHOSPHORUS 3.5 mg/dL (2.6-4.7); TOTAL BILIRUBIN 2.5 mg/dL (0.2-1.0); TOTAL PROTEIN 7.4 g/dL (6.4-8.2)
[2021-05-06] MEDS ORDERED: MAGNESIUM SULFATE 1GM 100 ML IV ONE (22:30)
[2021-05-06 23:15] VITALS: BP 137/70
[2021-05-06] MEDS ORDERED: ONDANSETRON PF 4 MG/2 ML VIAL. IVP PRN (23:15)
[2021-05-06] MEDS ORDERED: IV DEXTROSE 5 %-0.45 % NACL 1,000 ML IV ONE (23:30)
[2021-05-07] MEDS ORDERED: CYCL10TA19 PO (00:24)
[2021-05-07] MEDS ORDERED: C.DIFF MED SCREEN BY RX. MC ONE (01:00)
[2021-05-07 03:00] VITALS: BP 139/57
[2021-05-07 07:00] VITALS: BP 152/63
[2021-05-07] MEDS ORDERED: ACETAMINOPHEN 325 MG TABLET. PO PRN (07:00)
--- NOTE | 2021-05-07 07:21 | EKG ---
[facility] [address] [place] [address] Test Date: 2021-05-06 Test Time: 18:43:33 Pat Name: JESSICA POWERS Department: Room: 404 Gender: F Ordnance Technician: [id number] : 1955 Requested By: ELENI KRAMER Order Number: [id number] Reading MD: Shiv Whitehead MD Measurements Intervals [place] Rate: 114 P: AL: QRS: 37 QRSD: 96 T: -6 QT: 356 QTc: 494 Interpretive Statements SR NON-SPECIFIC ST/T CHANGES Electronically Signed On 05-07-2021 10:58:19 VIOLIN MECHANIC by Shiv Whitehead MD
--- NOTE | 2021-05-07 08:26 | NUR ---
0811 lab call positive blood culture. gram negative rods in 2 of 3. 2 sets 05/07/21. Dr. Cano was notified.
--- NOTE | 2021-05-07 10:40 | NUR ---
SW following. Discussed with RN, pt from home, room air, NPO. PT/OT/ST ordered. SW will continue to follow.
[2021-05-07 11:00] VITALS: BP 121/73
--- NOTE | 2021-05-07 11:43 | PDOC1 ---
History and Physical Date of Admission Date of Admission DATE: 05/07/21 TIME: 11:37 Identification/Chief Complaint Chief Complaint Confusion Source Source: Patient History of Present Illness History of Present Illness Ms Rdz is a 65yo female with PMHx Anemia, DVT, GERD, Hypertension, Hypothyroidism, idiopathic cirrhosis, and bilateral lower extremity wounds who c omes to ED via EMS from SNF for concerns of worsening altered mental status. EMS reported that they were told by the staff there that the patient has been progressively weak with altered mental status for about 1 week. She gives no meaningful history, but son, bedside notes progressively declining in June of 2020 after a fall where and she was on the floor in her home for for 5 days unable to reach the phone or receive assistance. The patient has had dramatic decline in overall physical condition since that time. She has had multiple hospitalizations for similar presentation, encephalopathy, failure to thrive. The patient's son who is here at the bedside, is her power of managing attorney. The patient does not reportedly have any advanced directive. Her son reports that for now he would like to keep her a full code. The patient has a history of recurrent urinary tract infection, left lower leg wound, leg hematoma, requiring surgical debridement and wound VAC, liver disease with encephalopathy. Her son reports no history of alcohol use. The patient quit smoking a few years ago reportedly. No reported fevers. The patient mumbles incoherently, she is unable to communicate effectively. Labs with WBC 11, Hb 12.5, platelets 122, NA 139, K3.9, BUN 10, CR 0.9, glucose 115, calcium 7.2, phosphorus 3.5, magnesium 1.6, bilirubin 2.5, AST 57, ALT 17, alkaline phosphatase 200, ammonia 82, high-sensitivity troponin is 6, albumin 1.6, lactic acid 4, urinalysis with large leuk esterase and positive nitrites Noncontrast CT head with no acute abnormalities Chest radiograph no acute abnormalities Past Medical History Pulmonary: Pulmonary embolus GI: GERD Heme/Onc: Anemia NOS Musculoskeletal: low back pain Endocrine: Hypothyroidism Past Surgical History Past Surgical History: Hysterectomy, Other Family History Family History: Hypertension Social History Smoke: No ALCOHOL: none Drugs: None Current Problem List Problem List Problems Medical Problems: (1) Altered mental status Status: Acute (2) Failure to thrive Status: Acute (3) Lactic acidosis Status: Acute (4) Metabolic encephalopathy Status: Acute (5) Multiple wounds of skin Status: Acute (6) Sepsis Status: Acute (7) Urinary tract infection Status: Acute Current Medications Current Medications Current Medications Sodium Chloride 1,000 ml @ 1,000 mls/hr 1X ONCE IV Last administered on 05/06/21at 20:24; Start 05/06/21 at 18:45; Stop 05/06/21 at 19:44; Status DC Piperacillin Sod/ Tazobactam Sod 3.375 gm/Sodium Chloride 50 ml @ 100 mls/hr 1X ONCE IV Last administered on 05/06/21at 21:46; Start 05/06/21 at 20:30; Stop 05/06/21 at 20:59; Status DC Vancomycin HCl 1.5 gm/Sodium Chloride 500 ml @ 250 mls/hr 1X ONCE IV ; Start 05/06/21 at 20:30; Stop 05/06/21 at 22:29; Status UNV Vancomycin HCl 1.75 gm/Sodium Chloride 500 ml @ 250 mls/hr 1X ONCE IV Last administered on 05/06/21at 22:09; Start 05/06/21 at 20:45; Stop 05/06/21 at 22:44; Status DC Sodium Chloride 1,000 ml @ 1,000 mls/hr 1X ONCE IV ; Start 05/06/21 at 22:30; Stop 05/06/21 at 23:29; Status DC Magnesium Sulfate/ Dextrose 100 ml @ 100 mls/hr 1X ONCE IV Last administered on 05/06/21at 22:18; Start 05/06/21 at 22:30; Stop 05/06/21 at 23:29; Status DC Ondansetron HCl (Zofran) 4 mg PRN Q8HRS PRN IVP NAUSEA/VOMITING 1ST CHOICE; Start 05/06/21 at 23:15; Stop 05/07/21 at 23:14 Dextrose/Sodium Chloride 1,000 ml @ 100 mls/hr 1X ONCE IV Last administered on 05/07/21at 01:15; Start 05/06/21 at 23:30; Stop 05/07/21 at 09:29; Status DC Pharmacy Consult (C.diff Med Screen By Rx) 1 each 1X ONCE [facility] ; Start 05/07/21 at 01:00; Stop 05/07/21 at 01:01; Status Cancel Acetaminophen (Tylenol) 650 mg PRN Q6HRS PRN PO MILD PAIN / TEMP > 100.3'F; Start 05/07/21 at 07:00 Active Scripts Active Amoxicillin 500 Mg Capsule 1 Cap PO BID 30 Days Augmentin 875-125 Tablet (Amoxicillin/Potassium Clav) 1 Each Tablet 1 Tab PO BID 10 Days Pantoprazole Sodium (Pantoprazole Sodium) 40 Mg Tablet.dr 40 Mg PO DAILYAC 30 Days [Dronabinol] 2.5 MG Capsule 2.5 Mg PO BIDACLD 7 Days Lactulose 20 Gm/30 Ml Solution 20 Gm PO BID 30 Days Lyrica (Pregabalin) 75 Mg Capsule 50 Mg PO TID 30 Days Lactulose 20 Gm/30 Ml Solution 20 Gm PO PRN BID PRN 30 Days Reported Cyclobenzaprine Hcl 10 Mg Tablet 10 Mg PO TID Omeprazole 20 Mg Capsule.dr 1 Cap PO DAILY Nystatin 15 Gm Powder 1 Caitlyn TP BID 7 Days apply to affected area(s) Potassium Chloride (Potassium Chloride) 20 Meq Tablet.er 20 Meq PO DAILY Lasix (Furosemide) 40 Mg Tablet 1 Tab PO DAILY 30 Days Thera-M Caplet (Multivit,Ther Iron,Ca,Fa & Min) 1 Each Tablet 1 Tab PO DAILY 30 Days Culturelle (Lactobacillus Rhamnosus Gg) 1 Each Capsule 1 Cap PO DAILY 30 Days Cymbalta (Duloxetine Hcl) 60 Mg Capsule. 1 Cap PO DAILY Allergies Allergies: Coded Allergies: prednisone (Verified Allergy, Intermediate, 03/27/21) I S O L A T I O N *CONTACT* (Verified Allergy, Unknown, 03/27/21) ESBL ROS Review of System Unable to obtain due to altered mental status. Physical Exam General: Cooperative, mild distress, Other (Confused) HEENT: Atraumatic, PERRLA, EOMI, Other (Jaundiced) Lungs: Clear to auscultation, Normal air movement Heart: S1S2, RRR, no thrills, no rubs, no gallops, no murmurs Abdomen: Normal bowel sounds, Soft, No tenderness, No hepatosplenomegaly, No masses Rectal Exam: not examined Extremities: Other (Scant edema) Skin: Other (Intertrigo, RLE bruising) Neuro: Normal tone, Sensation intact, Cranial nerves 3-12 NL, Reflexes 2+, Other (moving all 4 limbs) Psych/Mental Status: Other (Confused, drowsy) Vitals Vitals Vital Signs Date Time Temp Pulse Resp B/P (MAP) Pulse Ox O2 Delivery O2 Flow Rate FiO2 05/07/21 11:00 99.8 89 20 121/73 (89) 92 Room Air 99.8 Labs Labs Laboratory Tests Test 05/06/21 20:00 05/06/21 20:25 05/06/21 20:50 05/06/21 23:59 Urine Collection Type U cath Urine Color Yellow Urine Clarity Hazy Urine pH 6.0 (<5.0-8.0) Urine Specific [place] 1.025 (1.000-1.030) Urine Protein Negative mg/dL (NEG-TRACE) Urine Glucose (UA) Negative mg/dL (NEG) Urine Ketones (Stick) Negative mg/dL (NEG) Urine Blood Large (NEG) Urine Nitrite Positive (NEG) Urine Bilirubin Negative (NEG) Urine Urobilinogen Dipstick 2.0 mg/dL (0.2 mg/dL) Urine Leukocyte Esterase Large (NEG) Urine RBC 6-10 /HPF (0-2) Urine WBC Tntc /HPF (0-4) Urine Bacteria Few /HPF (0-FEW) Urine Yeast Present /HPF White Blood Count 11.0 x10^3/uL (4.0-11.0) Red Blood Count 4.16 x10^6/uL (3.50-5.40) Hemoglobin 12.5 g/dL (12.0-15.5) Hematocrit 38.2 % (36.0-47.0) Mean Corpuscular Volume 92 fL (79-100) Mean Corpuscular Hemoglobin 30 pg (25-35) Mean Corpuscular Hemoglobin Concent 33 g/dL (31-37) Red Cell Distribution Width 19.6 % (11.5-14.5) Platelet Count 122 x10^3/uL (140-400) Neutrophils (%) (Auto) 86 % (31-73) Lymphocytes (%) (Auto) 10 % (24-48) Monocytes (%) (Auto) 3 % (0-9) Eosinophils (%) (Auto) 1 % (0-3) Basophils (%) (Auto) 0 % (0-3) Neutrophils # (Auto) 9.4 x10^3/uL (1.8-7.7) Lymphocytes # (Auto) 1.1 x10^3/uL (1.0-4.8) Monocytes # (Auto) 0.4 x10^3/uL (0.0-1.1) Eosinophils # (Auto) 0.1 x10^3/uL (0.0-0.7) Basophils # (Auto) 0.0 x10^3/uL (0.0-0.2) Sodium Level 139 mmol/L (136-145) Potassium Level 3.9 mmol/L (3.5-5.1) Chloride Level 105 mmol/L (98-107) Carbon Dioxide Level 23 mmol/L (21-32) Anion Gap 11 (6-14) Blood Urea Nitrogen 10 mg/dL (7-20) Creatinine 0.9 mg/dL (0.6-1.0) Estimated GFR (Cockcroft-Gault) 62.8 BUN/Creatinine Ratio 11 (6-20) Glucose Level 115 mg/dL (70-99) Lactic Acid Level 4.0 mmol/L (0.4-2.0) 2.7 mmol/L (0.4-2.0) Calcium Level 7.2 mg/dL (8.5-10.1) Phosphorus Level 3.5 mg/dL (2.6-4.7) Magnesium Level 1.6 mg/dL (1.8-2.4) Total Bilirubin 2.5 mg/dL (0.2-1.0) Aspartate Amino Transf (AST/SGOT) 57 U/L (15-37) Alanine Aminotransferase (ALT/SGPT) 17 U/L (14-59) Alkaline Phosphatase 200 U/L (46-116) Ammonia 82 mcmol/L (11-34) Creatine Kinase 27 U/L (26-192) Troponin I High Sensitivity 6 ng/L (4-50) Total Protein 7.4 g/dL (6.4-8.2) Albumin 1.8 g/dL (3.4-5.0) Albumin/Globulin Ratio 0.3 (1.0-1.7) Laboratory Tests Test 05/06/21 20:00 05/06/21 20:25 05/06/21 20:50 05/06/21 23:59 Urine Collection Type U cath Urine Color Yellow Urine Clarity Hazy Urine pH 6.0 (<5.0-8.0) Urine Specific [place] 1.025 (1.000-1.030) Urine Protein Negative mg/dL (NEG-TRACE) Urine Glucose (UA) Negative mg/dL (NEG) Urine Ketones (Stick) Negative mg/dL (NEG) Urine Blood Large (NEG) Urine Nitrite Positive (NEG) Urine Bilirubin Negative (NEG) Urine Urobilinogen Dipstick 2.0 mg/dL (0.2 mg/dL) Urine Leukocyte Esterase Large (NEG) Urine RBC 6-10 /HPF (0-2) Urine WBC Tntc /HPF (0-4) Urine Bacteria Few /HPF (0-FEW) Urine Yeast Present /HPF White Blood Count 11.0 x10^3/uL (4.0-11.0) Red Blood Count 4.16 x10^6/uL (3.50-5.40) Hemoglobin 12.5 g/dL (12.0-15.5) Hematocrit 38.2 % (36.0-47.0) Mean Corpuscular Volume 92 fL (79-100) Mean Corpuscular Hemoglobin 30 pg (25-35) Mean Corpuscular Hemoglobin Concent 33 g/dL (31-37) Red Cell Distribution Width 19.6 % (11.5-14.5) Platelet Count 122 x10^3/uL (140-400) Neutrophils (%) (Auto) 86 % (31-73) Lymphocytes (%) (Auto) 10 % (24-48) Monocytes (%) (Auto) 3 % (0-9) Eosinophils (%) (Auto) 1 % (0-3) Basophils (%) (Auto) 0 % (0-3) Neutrophils # (Auto) 9.4 x10^3/uL (1.8-7.7) Lymphocytes # (Auto) 1.1 x10^3/uL (1.0-4.8) Monocytes # (Auto) 0.4 x10^3/uL (0.0-1.1) Eosinophils # (Auto) 0.1 x10^3/uL (0.0-0.7) Basophils # (Auto) 0.0 x10^3/uL (0.0-0.2) Sodium Level 139 mmol/L (136-145) Potassium Level 3.9 mmol/L (3.5-5.1) Chloride Level 105 mmol/L (98-107) Carbon Dioxide Level 23 mmol/L (21-32) Anion Gap 11 (6-14) Blood Urea Nitrogen 10 mg/dL (7-20) Creatinine 0.9 mg/dL (0.6-1.0) Estimated GFR (Cockcroft-Gault) 62.8 BUN/Creatinine Ratio 11 (6-20) Glucose Level 115 mg/dL (70-99) Lactic Acid Level 4.0 mmol/L (0.4-2.0) 2.7 mmol/L (0.4-2.0) Calcium Level 7.2 mg/dL (8.5-10.1) Phosphorus Level 3.5 mg/dL (2.6-4.7) Magnesium Level 1.6 mg/dL (1.8-2.4) Total Bilirubin 2.5 mg/dL (0.2-1.0) Aspartate Amino Transf (AST/SGOT) 57 U/L (15-37) Alanine Aminotransferase (ALT/SGPT) 17 U/L (14-59) Alkaline Phosphatase 200 U/L (46-116) Ammonia 82 mcmol/L (11-34) Creatine Kinase 27 U/L (26-192) Troponin I High Sensitivity 6 ng/L (4-50) Total Protein 7.4 g/dL (6.4-8.2) Albumin 1.8 g/dL (3.4-5.0) Albumin/Globulin Ratio 0.3 (1.0-1.7) Images Images CT head non-contrast: Ventricles and sulci are mildly prominent for age. No midline shift or mass effect. Mild patchy low density in the deep/subcortical periventricular white matter. No hemorrhage or extra-axial collection. Posterior fossa and brainstem unremarkable. Visualized paranasal sinuses and mastoid air cells are clear. No apparent moira varial abnormality. There are atherosclerotic calcifications of the vertebral arteries, left greater than right. IMPRESSION: 1. No evidence of acute intracranial hemorrhage or mass. 2. Mild chronic small vessel ischemic changes and atrophy. Chest radiograph: Single upright portable exam of the chest was performed. Heart and mediastinal contours are stable. Mild elevation of right hemidiaphragm, unchanged. There is a prominent perihilar linear markings, stable. No consolidation or pleural effusion. No pneumothorax. IMPRESSION: No acute radiographic abnormality. Stable findings compared to 03/27/2021. VTE Prophylaxis Ordered VTE Prophylaxis Devices: No VTE Pharmacological Prophylaxi: Yes Assessment/Plan Assessment/Plan A/P: Acute encephalopathy - likely multifactorial metabolic with chronic hepatic encephalopathy and acute UTI. Would decrease sedating meds (cyclobenzaprine, lyrica) Abnormal UA - culture pending, can start on empiric zosyn Lactic acidosis - likely due to early sepsis, improving Transaminitis - likely related to cirrhosis Thrombocytopenia - likely related to liver disease of idiopathic etiology Cirrhotic liver - noted with secondary sequela of portal hypertension including splenomegaly and abdominal varices on CT over a year ago. Lactulose GERD - controlled w/ PPI Hypomagnesemia - replaced H/o LLE DVT - was previously on Eliquis. Was started 09/2020 while at [facility] in [place] Acute urinary retention due to bladder outlet obstruction - has blanco placed, is chronic now Severe protein calorie malnutrition - MANGA ARTIST for swallowing. IV nutrition History of bladder suspension Hypothyroidism Lumbar radiculopathy. Gastroesophageal reflux disease with varices on CT Lumbago sciatica. Cognitive communication deficit. Bilateral lower extremity wounds - seeing wound care. S/p left leg tibia hematoma evacuation. Wound care to see FEN - General diet PPX - Heparin FULL CODE Dispo - inpatient D/w son, Jim Cabrera, bedside Justifications for Admission Other Justification Acute metabolic encephalopathy JHOAN RIVERA MD May 07, 2021 11:43
[2021-05-07] MEDS ORDERED: PIP/TAZO PER PHARMACY MC PRN (11:45)
[2021-05-07] MEDS: PIPERACILLIN/TAZOBACTAM 3.375 GM in IV NORMAL SALINE 50ML 50 ML IV SCH ×3 (12:05→23:45)
[2021-05-07] MEDS: LACTULOSE 20 GM/30 ML SOLUTION. PO SCH ×2 (14:45→21:00)
[2021-05-07 15:00] VITALS: BP 115/66
--- NOTE | 2021-05-07 15:09 | PDOC2 ---
GI CONSULT Date of Service: DATE: 05/07/21 TIME: 14:54 Reason For Consult: cirrhosis HPI: HPI: 65 y/o female who we've seen several times sent to ER from SNF w/ AMS and weakness x 1 week, admitted w/ UTI and GNR bacteremia. From past encounters: H/o cirrhosis - cause unclear - ?NAFLD? On lactulose, Lasix in past. When we last saw, some issues w/ lack of appetite (tried Marinol), refusing meds, etc. CT in 11/2020 noted cirrhotic morphology of the liver with secondary sequela of portal hypertension including splenomegaly and abdominal varices. Esophagram 11/2020 noted presbyesophagus and no major esophageal varices noted. H/o GERD controlled w/ PPI No previous EGD or colonoscopy. S/p cholecystectomy. No pancreas or PUD history. Past pancytopenia. Previous anemia parameters c/w ACD. Hepatitis panel and AMA negative in 2020. Past use of Eliquis for h/o DVT. PMH: PMH: hypothyroidism, GERD, DVT, dementia, lumbar radiculopathy, hydronephrosis, UTIs, chronic Martinez, parotitis, COVID lumbar fusion, AKHIL/BSO, bladder suspension, vertebroplasty FH: Family History: No pertinent hx (previously denied FH liver disease) Social History: Smoke: No ALCOHOL: none Drugs: None ROS: GEN: Denies fevers, chills, sweats HEENT: Denies blurred vision, sore throat CV: Denies chest pain RESP: Denies shortness of air, cough GI: Per HPI : Denies hematuria, dysuria ENDO: Denies weight changes NEURO: Denies confusion, dizziness MSK: Denies weakness, joint pain/swelling SKIN: Denies jaundice, pruritus Vitals: Vitals: Vital Signs Date Time Temp Pulse Resp B/P (MAP) Pulse Ox O2 Delivery O2 Flow Rate FiO2 05/07/21 11:00 99.8 89 20 121/73 (89) 92 Room Air 99.8 Labs: Labs: Laboratory Tests Test 05/06/21 20:00 05/06/21 20:25 05/06/21 20:50 05/06/21 23:59 Urine Collection Type U cath Urine Color Yellow Urine Clarity Hazy Urine pH 6.0 (<5.0-8.0) Urine Specific [place] 1.025 (1.000-1.030) Urine Protein Negative mg/dL (NEG-TRACE) Urine Glucose (UA) Negative mg/dL (NEG) Urine Ketones (Stick) Negative mg/dL (NEG) Urine Blood Large (NEG) Urine Nitrite Positive (NEG) Urine Bilirubin Negative (NEG) Urine Urobilinogen Dipstick 2.0 mg/dL (0.2 mg/dL) Urine Leukocyte Esterase Large (NEG) Urine RBC 6-10 /HPF (0-2) Urine WBC Tntc /HPF (0-4) Urine Bacteria Few /HPF (0-FEW) Urine Yeast Present /HPF White Blood Count 11.0 x10^3/uL (4.0-11.0) Red Blood Count 4.16 x10^6/uL (3.50-5.40) Hemoglobin 12.5 g/dL (12.0-15.5) Hematocrit 38.2 % (36.0-47.0) Mean Corpuscular Volume 92 fL (79-100) Mean Corpuscular Hemoglobin 30 pg (25-35) Mean Corpuscular Hemoglobin Concent 33 g/dL (31-37) Red Cell Distribution Width 19.6 % (11.5-14.5) Platelet Count 122 x10^3/uL (140-400) Neutrophils (%) (Auto) 86 % (31-73) Lymphocytes (%) (Auto) 10 % (24-48) Monocytes (%) (Auto) 3 % (0-9) Eosinophils (%) (Auto) 1 % (0-3) Basophils (%) (Auto) 0 % (0-3) Neutrophils # (Auto) 9.4 x10^3/uL (1.8-7.7) Lymphocytes # (Auto) 1.1 x10^3/uL (1.0-4.8) Monocytes # (Auto) 0.4 x10^3/uL (0.0-1.1) Eosinophils # (Auto) 0.1 x10^3/uL (0.0-0.7) Basophils # (Auto) 0.0 x10^3/uL (0.0-0.2) Sodium Level 139 mmol/L (136-145) Potassium Level 3.9 mmol/L (3.5-5.1) Chloride Level 105 mmol/L (98-107) Carbon Dioxide Level 23 mmol/L (21-32) Anion Gap 11 (6-14) Blood Urea Nitrogen 10 mg/dL (7-20) Creatinine 0.9 mg/dL (0.6-1.0) Estimated GFR (Cockcroft-Gault) 62.8 BUN/Creatinine Ratio 11 (6-20) Glucose Level 115 mg/dL (70-99) Lactic Acid Level 4.0 mmol/L (0.4-2.0) 2.7 mmol/L (0.4-2.0) Calcium Level 7.2 mg/dL (8.5-10.1) Phosphorus Level 3.5 mg/dL (2.6-4.7) Magnesium Level 1.6 mg/dL (1.8-2.4) Total Bilirubin 2.5 mg/dL (0.2-1.0) Aspartate Amino Transf (AST/SGOT) 57 U/L (15-37) Alanine Aminotransferase (ALT/SGPT) 17 U/L (14-59) Alkaline Phosphatase 200 U/L (46-116) Ammonia 82 mcmol/L (11-34) Creatine Kinase 27 U/L (26-192) Troponin I High Sensitivity 6 ng/L (4-50) Total Protein 7.4 g/dL (6.4-8.2) Albumin 1.8 g/dL (3.4-5.0) Albumin/Globulin Ratio 0.3 (1.0-1.7) BLOOD CULTURE Final GRAM NEGATIVE RODS GROWTH IN 2 OF 3 BOTTLES OF 2 SETS Allergies: Coded Allergies: prednisone (Verified Allergy, Intermediate, 03/27/21) I S O L A T I O N *CONTACT* (Verified Allergy, Unknown, 03/27/21) ESBL Medications: Current Medications Medications (Trade) Dose Ordered Sig/Lizette Route PRN Reason Start Time Stop Time Status Last Admin Dose Admin Sodium Chloride 1,000 ml @ 1,000 mls/hr 1X ONCE IV 05/06/21 18:45 05/06/21 19:44 DC 05/06/21 20:24 Piperacillin Sod/ Tazobactam Sod 3.375 gm/Sodium Chloride 50 ml @ 100 mls/hr 1X ONCE IV 05/06/21 20:30 05/06/21 20:59 DC 05/06/21 21:46 Vancomycin HCl 1.75 gm/Sodium Chloride 500 ml @ 250 mls/hr 1X ONCE IV 05/06/21 20:45 05/06/21 22:44 DC 05/06/21 22:09 Magnesium Sulfate/ Dextrose 100 ml @ 100 mls/hr 1X ONCE IV 05/06/21 22:30 05/06/21 23:29 DC 05/06/21 22:18 Dextrose/Sodium Chloride 1,000 ml @ 100 mls/hr 1X ONCE IV 05/06/21 23:30 05/07/21 09:29 DC 05/07/21 01:15 Piperacillin Sod/ Tazobactam Sod 3.375 gm/Sodium Chloride 50 ml @ 100 mls/hr Q6HRS IV 05/07/21 12:00 05/07/21 12:05 Imaging: Imaging: CXR 05/06 IMPRESSION: No acute radiographic abnormality. Stable findings compared to 03/27/2021. Head CT 05/06 IMPRESSION: 1. No evidence of acute intracranial hemorrhage or mass. 2. Mild chronic small vessel ischemic changes and atrophy. M[employer]ICULT[employer] SERVICES LIBRARIAN Bedside Swallow Eval Swallow eval completed earlier this date. See full rpt in interventions. Pt known from recent admit in 03/2021. At that time, pt was discharged on dysphagia II w/thin liquids w/some concern for role of MS on efficiency of intake and potential for pt to fall short of nutritional needs. Pt also inconsistently refused meds. IMPRESSIONS: Currently, mental status c/t oropharyngeal delay and pt's poor awareness of bolus when placed in the oral cavity. Multiple ice chip trials w/verbal and tactile cues were ineffective in increasing pt awareness and timing of oropharyngeal swallow. Pt is at high risk of aspiration, ronna. aspiration before swallow based on current assessment. Anticipate pt will be able to advance back to po diet as overall med condition and MS improves. RECOMMENDATIONS: NPO meds and nutrition. M[employer]ICULT[employer] SERVICES LIBRARIAN f/u for advancing back to po diet when indicated. Mental status will likely con't to be a confounding factor to adequate intake and consistent route for meds, as it has been in the past. DW pt, RN Paula and son Jim. PE: GEN: NAD, son present HEENT: Atraumatic, PERRL LUNGS: CTAB HEART: RRR ABD: NABS, S/ND/NT EXTREMITY: No edema SKIN: No rashes, no jaundice NEURO/PSYCH: was resting - awakened for exam, didn't verbalize A/P: A/P: UTI/bacteremia Cirrhosis H/o ACD/pancytopenia, coagulopathy, thrombocytopenia, mildly abnormal LFTs and hyperammonemia GERD, presbyesophagus - on PPI CRC screen - none S/p cholecystectomy H/o DVT - ?on Eliquis? COVID negative -- NPO per M[employer]IC[employer] SERVICES LIBRARIAN. Hopefully, as in the past, mental status will improve w/ treatment of UTI/bacteremia. Resume lactulose as able. BRUNO KRUSE May 07, 2021 15:09
[2021-05-07] MEDS: ENOXAPARIN 40 MG/0.4 ML SYRINGE. SQ SCH (16:36)
[2021-05-07 19:15] VITALS: BP 115/55
[2021-05-07] MEDS: NYSTATIN TOPICAL POWDER 15GM BOTTLE. TP SCH (21:19)
[2021-05-07 22:50] VITALS: BP 98/49
[2021-05-08 03:15] VITALS: BP 128/62
[2021-05-08] MEDS: PIPERACILLIN/TAZOBACTAM 3.375 GM in IV NORMAL SALINE 50ML 50 ML IV SCH ×3 (05:44→18:00)
[2021-05-08 07:00] VITALS: BP 117/54
[2021-05-08] MEDS ORDERED: PANTOPRAZOLE 40 MG TABLET.DR. PO SCH (07:30)
[2021-05-08] MEDS ORDERED: NON FORMULARY ITEM (Omeprazole 1 CAP) PO SCH (09:00)
[2021-05-08] MEDS: LACTULOSE 20 GM/30 ML SOLUTION. PO SCH ×4 (09:00→21:00)
--- NOTE | 2021-05-08 09:36 | PDOC ---
Date of Service: DATE: 05/08/21 TIME: 09:32 Subjective: Subjective: Doesn't feel good. Knows she's in a hospital, not sure which one. Says the year is "4." Objective: Vital Signs: Vital Signs Date Time Temp Pulse Resp B/P (MAP) Pulse Ox O2 Delivery O2 Flow Rate FiO2 05/08/21 07:00 97.4 79 18 117/54 (75) 94 Room Air 97.4 Labs: Laboratory Tests Test 05/07/21 20:34 Glucose (Fingerstick) 71 mg/dL PE: GEN: chronically ill HEENT: mouth and lips very dry LUNGS: CTAB HEART: RRR ABD: soft, non-tender NEURO/PSYCH: awake, confused A/P: UTI/GNR bacteremia, encephalopathy - recurrent issue Cirrhosis Dysphagia -- Continue support GI-anderson, hopefully mental status will improve w/ treatment of infection. Resume lactulose when safe for PO. Justicifation of Admission Dx: Justifications for Admission: Justification of Admission Dx: Yes BRUNO KRUSE May 08, 2021 09:35
--- NOTE | 2021-05-08 10:45 | PDOC ---
[facility] PROGRESS NOTE Date of Service DOS: DATE: 05/08/21 TIME: 10:43 Chief Complaint Chief Complaint A/P: Acute encephalopathy - likely multifactorial metabolic with chronic hepatic encephalopathy and acute UTI. Would decrease sedating meds (cyclobenzaprine, lyrica) Abnormal UA - culture pending, can start on empiric zosyn Lactic acidosis - likely due to early sepsis, improving Transaminitis - likely related to cirrhosis Thrombocytopenia - likely related to liver disease of idiopathic etiology Cirrhotic liver - noted with secondary sequela of portal hypertension including splenomegaly and abdominal varices on CT over a year ago. Lactulose GERD - controlled w/ PPI Hypomagnesemia - replaced H/o LLE DVT - was previously on Eliquis. Was started 09/2020 while at [facility] in [place] Acute urinary retention due to bladder outlet obstruction - has blanco placed, is chronic now Severe protein calorie malnutrition - SURGERY SPECIALIST for swallowing. IV nutrition History of bladder suspension Hypothyroidism Lumbar radiculopathy. Gastroesophageal reflux disease with varices on CT Lumbago sciatica. Cognitive communication deficit. Bilateral lower extremity wounds - seeing wound care. S/p left leg tibia hematoma evacuation. Wound care to see FEN - General diet PPX - Heparin FULL CODE Dispo - inpatient History of Present Illness History of Present Illness Ms Rdz is a 65yo female with PMHx Anemia, DVT, GERD, Hypertension, Hypothyroidism, idiopathic cirrhosis, and bilateral lower extremity wounds who comes to ED via EMS from SNF for concerns of worsening altered mental status. EMS reported that they were told by the staff there that the patient has been progressively weak with altered mental status for about 1 week. She gives no meaningful history, but son, bedside notes progressively declining in June of 2020 after a fall where and she was on the floor in her home for for 5 days unable to reach the phone or receive assistance. The patient has had dramatic decline in overall physical condition since that time. She has had multiple hospitalizations for similar presentation, encephalopathy, failure to thrive. The patient's son who is here at the bedside, is her power of associate attorney. The patient does not reportedly have any advanced directive. Her son reports that for now he would like to keep her a full code. The patient has a history of recurrent urinary tract infection, left lower leg wound, leg hematoma, requiring surgical debridement and wound VAC, liver disease with encephalopathy. Her son reports no history of alcohol use. The patient quit smoking a few years ago reportedly. No reported fevers. The patient mumbles incoherently, she is unable to communicate effectively. Labs with WBC 11, Hb 12.5, platelets 122, NA 139, K3.9, BUN 10, CR 0.9, glucose 115, calcium 7.2, phosphorus 3.5, magnesium 1.6, bilirubin 2.5, AST 57, ALT 17, alkaline phosphatase 200, ammonia 82, high-sensitivity troponin is 6, albumin 1.6, lactic acid 4, urinalysis with large leuk esterase and positive nitrites Noncontrast CT head with no acute abnormalities Chest radiograph no acute abnormalities Vitals/I&O Vitals/I&O: Vital Signs Date Time Temp Pulse Resp B/P (MAP) Pulse Ox O2 Delivery O2 Flow Rate FiO2 05/08/21 07:00 97.4 79 18 117/54 (75) 94 Room Air 97.4 I & O 05/07/21 05/07/21 05/08/21 15:00 23:00 07:00 Intake Total 50 ml Output Total 150 ml 450 ml Balance -100 ml -450 ml Physical Exam General: Cooperative, mild distress, Other (Confused) Lungs: Clear Abdomen: Normal bowel sounds, Soft, No tenderness, No hepatosplenomegaly, No masses Extremities: Other (Scant edema) Skin: Other (Intertrigo, RLE bruising) Labs Labs: Laboratory Tests Test 05/07/21 20:34 Glucose (Fingerstick) 71 mg/dL (70-99) Assessment and Plan Assessmemt and Plan Problems Medical Problems: (1) Altered mental status Status: Acute (2) Failure to thrive Status: Acute (3) Lactic acidosis Status: Acute (4) Metabolic encephalopathy Status: Acute (5) Multiple wounds of skin Status: Acute (6) Sepsis Status: Acute (7) Urinary tract infection Status: Acute Comment Review of Relevant I have reviewed the following items tracie (where applicable) has been applied. Medications: Current Medications Medications (Trade) Dose Ordered Sig/Lizette Route PRN Reason Start Time Stop Time Status Last Admin Dose Admin Piperacillin Sod/ Tazobactam Sod 3.375 gm/Sodium Chloride 50 ml @ 100 mls/hr Q6HRS IV 05/07/21 12:00 05/08/21 05:44 Nystatin (Nystop) 1 zena BID TP 05/07/21 21:00 3/1/22 21:19 Enoxaparin Sodium (Lovenox 40mg Syringe) 40 mg Q24H SQ 05/07/21 15:00 05/07/21 16:36 Justifications for Admission Other Justification Acute metabolic encephalopathy JHOAN RIVERA MD May 08, 2021 10:44
[2021-05-08 11:00] VITALS: BP 103/65
[2021-05-08] MEDS: LACTOBACILLUS RHAMNOSUS GG 1 CAPSULE. PO SCH (11:06)
[2021-05-08] MEDS: FUROSEMIDE 40 MG TABLET. PO SCH (11:06)
[2021-05-08] MEDS: NYSTATIN TOPICAL POWDER 15GM BOTTLE. TP SCH ×2 (11:07→21:59)
[2021-05-08 13:01] LABS: BASO % 0 % (0-3); EOS # 0.1 x10^3/uL (0.0-0.7); EOS % 2 % (0-3); HEMATOCRIT 29.1 % (36.0-47.0); HEMOGLOBIN 9.6 g/dL (12.0-15.5); LYMPH # 0.7 x10^3/uL (1.0-4.8); LYMPH % 24 % (24-48); MEAN CORPUSCULAR HEMOGLOBIN 30 pg (25-35); MEAN CORPUSCULAR HGB CONC 33 g/dL (31-37); MEAN CORPUSCULAR VOLUME 91 fL (79-100); MONO # 0.2 x10^3/uL (0.0-1.1); MONO % 5 % (0-9); NEUT # 1.9 x10^3/uL (1.8-7.7); NEUT % 68 % (31-73); RED BLOOD COUNT 3.19 x10^6/uL (3.50-5.40); RED CELL DISTRIBUTION WIDTH 19.1 % (11.5-14.5); WHITE BLOOD COUNT 2.9 x10^3/uL (4.0-11.0)
[2021-05-08 13:07] LABS: PROTHROMBIN TIME PATIENT 20.6 SEC (11.7-14.0)
[2021-05-08 13:26] LABS: ALBUMIN 1.5 g/dL (3.4-5.0); ALBUMIN/GLOBULIN RATIO 0.3 (1.0-1.7); CREATININE 0.8 mg/dL (0.6-1.0); POTASSIUM 3.1 mmol/L (3.5-5.1); TOTAL BILIRUBIN 1.7 mg/dL (0.2-1.0); TOTAL PROTEIN 6.6 g/dL (6.4-8.2)
[2021-05-08 13:27] LABS: PLATELET COUNT 49 x10^3/uL (140-400)
--- NOTE | 2021-05-08 13:30 | RAD ---
EXAM: ULTRASOUND ABDOMEN LIMITED CLINICAL HISTORY: Reason: Cirrhosis, increasing abdominal pain and girth, assess for ascites / Spl. I nstructions: / History: COMPARISON: None available. TECHNIQUE: Limited ultrasound examination of the abdomen was performed. FINDINGS: There is moderate ascites in the right abdomen. The main and right and left portal veins are patent a nd demonstrate hepatopedal flow. There is nodularity of the right hepatic lobe. Right hepatic lobe me asures 12.7 cm. The left hepatic lobe is obscured due to overlying bowel gas. On single image the spl een size appears prominent. IMPRESSION: 1. There is moderate ascites in the right abdomen. 2. Hepatic cirrhosis. 3. Portal flow is hepatopedal. Electronically signed by: Vipul Rush MD (05/08/2021 1:28 PM) [facility]
[2021-05-08] MEDS: ENOXAPARIN 40 MG/0.4 ML SYRINGE. SQ SCH (14:45)
--- NOTE | 2021-05-08 14:53 | NUR ---
PCR test sent to lab 1450 05/08/21
[2021-05-08 15:00] VITALS: BP 101/37
[2021-05-08] MEDS ORDERED: VITS A & D/LANOLIN TOPICAL OINTMENT 42GM TUBE. TP PRN (15:15)
[2021-05-08] MEDS ORDERED: ZINC OXIDE 20% TOPICAL OINTMENT 28GM TUBE. TP PRN (15:15)
--- NOTE | 2021-05-08 15:43 | NUR ---
Wound/Ostomy Care Wound Type/Assessment: Wound consult for multiple wounds. Pt has psoriasis lesions all over her body. She also has maceration on bilateral buttocks and under pannus. Cleansed and assessed wounds. Treatment Recommendations/Plan: Apply A&D ointment barrier cream BID and PRN to buttocks, apply nystatin powder in skin folds Education provided: PU prevention and WC POC. Pt will need reinforcement of teaching Offloading surface/device: P500 bed, Tq2, heels floated Recommended Referrals/Tests: na Discharge Recommendations for dressings: see above
[2021-05-08 19:00] VITALS: BP 116/55
[2021-05-08] MEDS ORDERED: LACTULOSE 20 GM/30 ML SOLUTION. PO ONE (21:00)
[2021-05-08 23:00] VITALS: BP 96/48
[2021-05-09] MEDS: PIPERACILLIN/TAZOBACTAM 3.375 GM in IV NORMAL SALINE 50ML 50 ML IV SCH ×2 (00:21→05:52)
[2021-05-09 03:00] VITALS: BP 107/52
[2021-05-09 06:05] LABS: ALBUMIN 1.4 g/dL (3.4-5.0); ALBUMIN/GLOBULIN RATIO 0.3 (1.0-1.7); CALCIUM 6.7 mg/dL (8.5-10.1); CREATININE 0.9 mg/dL (0.6-1.0); GFR 62.8; TOTAL BILIRUBIN 1.7 mg/dL (0.2-1.0); TOTAL PROTEIN 6.1 g/dL (6.4-8.2)
[2021-05-09 06:18] LABS: POTASSIUM 2.5 mmol/L (3.5-5.1)
[2021-05-09 07:00] VITALS: BP 107/52
[2021-05-09] MEDS: POTASSIUM CHLORIDE 10MEQ 100 ML IV SCH ×4 (07:15→12:10)
[2021-05-09] MEDS: FUROSEMIDE 40 MG TABLET. PO SCH (09:00)
[2021-05-09] MEDS: PANTOPRAZOLE IV PUSH 40 MG VIAL. IVP SCH (09:08)
[2021-05-09] MEDS: LACTOBACILLUS RHAMNOSUS GG 1 CAPSULE. PO SCH (09:09)
[2021-05-09] MEDS: NYSTATIN TOPICAL POWDER 15GM BOTTLE. TP SCH ×2 (09:10→21:10)
[2021-05-09 11:00] VITALS: BP 93/63
--- NOTE | 2021-05-09 11:15 | PDOC ---
Date of Service: DATE: 05/09/21 TIME: 11:11 Subjective: Subjective: Says she wants some jewelry that's easy to wear. Knows she's in the hospital, not sure which one. Eating a cracker. Objective: Objective: Refused lactulose this morning. Vital Signs: Vital Signs Date Time Temp Pulse Resp B/P (MAP) Pulse Ox O2 Delivery O2 Flow Rate FiO2 05/09/21 08:05 Room Air 05/09/21 07:00 97.8 85 18 107/52 (70) 94 97.8 Labs: Laboratory Tests Test 05/08/21 12:50 05/09/21 03:50 White Blood Count 2.9 x10^3/uL Red Blood Count 3.19 x10^6/uL Hemoglobin 9.6 g/dL Hematocrit 29.1 % Mean Corpuscular Volume 91 fL Mean Corpuscular Hemoglobin 30 pg Mean Corpuscular Hemoglobin Concent 33 g/dL Red Cell Distribution Width 19.1 % Platelet Count 49 x10^3/uL Neutrophils (%) (Auto) 68 % Lymphocytes (%) (Auto) 24 % Monocytes (%) (Auto) 5 % Eosinophils (%) (Auto) 2 % Basophils (%) (Auto) 0 % Neutrophils # (Auto) 1.9 x10^3/uL Lymphocytes # (Auto) 0.7 x10^3/uL Monocytes # (Auto) 0.2 x10^3/uL Eosinophils # (Auto) 0.1 x10^3/uL Basophils # (Auto) 0.0 x10^3/uL Prothrombin Time 20.6 SEC Prothromb Time International Ratio 1.8 Sodium Level 146 mmol/L 148 mmol/L Potassium Level 3.1 mmol/L 2.5 mmol/L Chloride Level 110 mmol/L 111 mmol/L Carbon Dioxide Level 28 mmol/L 28 mmol/L Anion Gap 8 9 Blood Urea Nitrogen 11 mg/dL 10 mg/dL Creatinine 0.8 mg/dL 0.9 mg/dL Estimated GFR (Cockcroft-Gault) 72.0 62.8 BUN/Creatinine Ratio 14 11 Glucose Level 80 mg/dL 68 mg/dL Calcium Level 7.0 mg/dL 6.7 mg/dL Total Bilirubin 1.7 mg/dL 1.7 mg/dL Aspartate Amino Transf (AST/SGOT) 52 U/L 34 U/L Alanine Aminotransferase (ALT/SGPT) 16 U/L 12 U/L Alkaline Phosphatase 159 U/L 136 U/L Total Protein 6.6 g/dL 6.1 g/dL Albumin 1.5 g/dL 1.4 g/dL Albumin/Globulin Ratio 0.3 0.3 Imaging: DIRECTOR COLLEGE / DIRECTOR COLLEGE Dysphagia Update: Oropharyngeal dysphagia resolving w/ improved mental status. Appears safe to initiate modified PO diet. See DIRECTOR COLLEGE Swallow Tx Note 05/08/21 in Interventions. Recommendations: Initiate Dysphagia II diet w/ thin/regular liquids. Requires 1:1 feeding asst. currently. PE: GEN: NAD LUNGS: CTAB HEART: RRR ABD: S/ND/NT NEURO/PSYCH: more awake, still confused A/P: UTI/E coli bacteremia, cirrhosis, encephalopathy Dysphagia, lack of appetite -- Eating a little, still confused. Refused lactulose, consider Xifaxan. Justicifation of Admission Dx: Justifications for Admission: Justification of Admission Dx: Yes BRUNO KRUSE May 09, 2021 11:15
--- NOTE | 2021-05-09 11:52 | PDOC ---
[facility] [facility] PROGRESS NOTE Date of Service DOS: DATE: 05/09/21 TIME: 11:50 Chief Complaint Chief Complaint A/P: Acute encephalopathy - likely multifactorial metabolic with chronic hepatic encephalopathy and acute UTI. Would decrease sedating meds (cyclobenzaprine, lyrica) Terri UTI - fluconazole ESBL bacteremia - merrem [id number]. Consult ID for further recommendations Lactic acidosis - likely due to early sepsis, improving Transaminitis - likely related to cirrhosis Thrombocytopenia - likely related to liver disease of idiopathic etiology Cirrhotic liver - noted with secondary sequela of portal hypertension including splenomegaly and abdominal varices on CT over a year ago. Lactulose GERD - controlled w/ PPI Hypomagnesemia - replaced H/o LLE DVT - was previously on Eliquis. Was started 09/2020 while at [facility] in [place] Acute urinary retention due to bladder outlet obstruction - has blanco placed, is chronic now Severe protein calorie malnutrition - PROJECT DEVELOPMENT ENGINEER for swallowing. IV nutrition History of bladder suspension Hypothyroidism Lumbar radiculopathy. Gastroesophageal reflux disease with varices on CT Lumbago sciatica. Cognitive communication deficit. Bilateral lower extremity wounds - seeing wound care. S/p left leg tibia hematoma evacuation. Wound care to see FEN - General diet PPX - on hold for thrombocytopenia FULL CODE Dispo - inpatient History of Present Illness History of Present Illness Ms Rdz is a 65yo female with PMHx Anemia, DVT, GERD, Hypertension, Hypothyroidism, idiopathic cirrhosis, and bilateral lower extremity wounds who comes to ED via EMS from SNF for concerns of worsening altered mental status. EMS reported that they were told by the staff there that the patient has been progressively weak with altered mental status for about 1 week. She gives no me aningful history, but son, bedside notes progressively declining in June of 2020 after a fall where and she was on the floor in her home for for 5 days unable to reach the phone or receive assistance. The patient has had dramatic decline in overall physical condition since that time. She has had multiple hospitalizations for similar presentation, encephalopathy, failure to thrive. The patient's son who is here at the bedside, is her power of county attorney. The patient does not reportedly have any advanced directive. Her son reports that for now he would like to keep her a full code. The patient has a history of recurrent urinary tract infection, left lower leg wound, leg hematoma, requiring surgical debridement and wound VAC, liver disease with encephalopathy. Her son reports no history of alcohol use. The patient quit smoking a few years ago reportedly. No reported fevers. The patient mumbles incoherently, she is unable to communicate effectively. Labs with WBC 11, Hb 12.5, platelets 122, NA 139, K3.9, BUN 10, CR 0.9, glucose 115, calcium 7.2, phosphorus 3.5, magnesium 1.6, bilirubin 2.5, AST 57, ALT 17, alkaline phosphatase 200, ammonia 82, high-sensitivity troponin is 6, albumin 1.6, lactic acid 4, urinalysis with large leuk esterase and positive nitrites Noncontrast CT head with no acute abnormalities Chest radiograph no acute abnormalities 05/09: Still confused this morning but eating a little bit refusing some medications including lactulose. Blood cultures returned positive for ESBL, and urine with Terri. Platelets dropped to 49 now pancytopenic. Vitals/I&O Vitals/I&O: Vital Signs Date Time Temp Pulse Resp B/P (MAP) Pulse Ox O2 Delivery O2 Flow Rate FiO2 05/09/21 11:00 98.0 87 18 93/63 (73) 96 Room Air 98.0 I & O 05/08/21 05/08/21 05/09/21 15:00 23:00 07:00 Intake Total 50 ml 50 ml 200 ml Output Total 800 ml 350 ml Balance 50 ml -750 ml -150 ml Physical Exam General: Cooperative, mild distress, Other (Confused) Lungs: Clear Abdomen: Normal bowel sounds, Soft, No tenderness, No hepatosplenomegaly, No masses Extremities: Other (Scant edema) Skin: Other (Intertrigo, RLE bruising) Labs Labs: Laboratory Tests Test 05/08/21 12:50 05/09/21 03:50 White Blood Count 2.9 x10^3/uL (4.0-11.0) Red Blood Count 3.19 x10^6/uL (3.50-5.40) Hemoglobin 9.6 g/dL (12.0-15.5) Hematocrit 29.1 % (36.0-47.0) Mean Corpuscular Volume 91 fL (79-100) Mean Corpuscular Hemoglobin 30 pg (25-35) Mean Corpuscular Hemoglobin Concent 33 g/dL (31-37) Red Cell Distribution Width 19.1 % (11.5-14.5) Platelet Count 49 x10^3/uL (140-400) Neutrophils (%) (Auto) 68 % (31-73) Lymphocytes (%) (Auto) 24 % (24-48) Monocytes (%) (Auto) 5 % (0-9) Eosinophils (%) (Auto) 2 % (0-3) Basophils (%) (Auto) 0 % (0-3) Neutrophils # (Auto) 1.9 x10^3/uL (1.8-7.7) Lymphocytes # (Auto) 0.7 x10^3/uL (1.0-4.8) Monocytes # (Auto) 0.2 x10^3/uL (0.0-1.1) Eosinophils # (Auto) 0.1 x10^3/uL (0.0-0.7) Basophils # (Auto) 0.0 x10^3/uL (0.0-0.2) Prothrombin Time 20.6 SEC (11.7-14.0) Prothromb Time International Ratio 1.8 (0.8-1.1) Sodium Level 146 mmol/L (136-145) 148 mmol/L (136-145) Potassium Level 3.1 mmol/L (3.5-5.1) 2.5 mmol/L (3.5-5.1) Chloride Level 110 mmol/L (98-107) 111 mmol/L (98-107) Carbon Dioxide Level 28 mmol/L (21-32) 28 mmol/L (21-32) Anion Gap 8 (6-14) 9 (6-14) Blood Urea Nitrogen 11 mg/dL (7-20) 10 mg/dL (7-20) Creatinine 0.8 mg/dL (0.6-1.0) 0.9 mg/dL (0.6-1.0) Estimated GFR (Cockcroft-Gault) 72.0 62.8 BUN/Creatinine Ratio 14 (6-20) 11 (6-20) Glucose Level 80 mg/dL (70-99) 68 mg/dL (70-99) Calcium Level 7.0 mg/dL (8.5-10.1) 6.7 mg/dL (8.5-10.1) Total Bilirubin 1.7 mg/dL (0.2-1.0) 1.7 mg/dL (0.2-1.0) Aspartate Amino Transf (AST/SGOT) 52 U/L (15-37) 34 U/L (15-37) Alanine Aminotransferase (ALT/SGPT) 16 U/L (14-59) 12 U/L (14-59) Alkaline Phosphatase 159 U/L (46-116) 136 U/L (46-116) Total Protein 6.6 g/dL (6.4-8.2) 6.1 g/dL (6.4-8.2) Albumin 1.5 g/dL (3.4-5.0) 1.4 g/dL (3.4-5.0) Albumin/Globulin Ratio 0.3 (1.0-1.7) 0.3 (1.0-1.7) Assessment and Plan Assessmemt and Plan Problems Medical Problems: (1) Altered mental status Status: Acute (2) Failure to thrive Status: Acute (3) Lactic acidosis Status: Acute (4) Metabolic encephalopathy Status: Acute (5) Multiple wounds of skin Status: Acute (6) Sepsis Status: Acute (7) Urinary tract infection Status: Acute Comment Review of Relevant I have reviewed the following items tracie (where applicable) has been applied. Medications: Current Medications Medications (Trade) Dose Ordered Sig/Lizette Route PRN Reason Start Time Stop Time Status Last Admin Dose Admin Pantoprazole Sodium (PROTONIX VIAL for IV PUSH) 40 mg DAILYAC IVP 05/09/21 07:30 05/09/21 09:08 Potassium Chloride/Water 100 ml @ 100 mls/hr Q1H IV 05/09/21 06:45 05/09/21 10:44 DC 05/09/21 10:03 Justifications for Admission Other Justification Acute metabolic encephalopathy JHOAN RIVERA MD May 09, 2021 11:52
[2021-05-09] MEDS: MEROPENEM 500 MG in IV NORMAL SALINE 50ML 50 ML IV SCH ×2 (12:09→22:25)
--- NOTE | 2021-05-09 13:53 | PDOC2 ---
Consult: DATE OF CONSULTATION: May 09, 2021 REFERRING PHYSICIAN: Mushtaq Rivera MD. REASON FOR CONSULTATION: ESBL E. coli bacteremia HISTORY OF PRESENT ILLNESS: A 65-year-old female from SNF, was brought to the ER for concerns of worsening altered mental status. Patient has been progressively weak. Patient is unable to give history. She was recently discharged last month with peritonitis on p.o. Augmentin for actinomyces infection. She was afebrile on presentation. White count was 11. Creatinine of 0.9. Lactate 2.[address] head was negative for acute abdominal area. Chest x-ray was negative for acute abnormality. Blood culture positive for ESBL E. coli. Urine culture positive for Terri albicans. Patient is currently on Zosyn, meropenem and fluconazole. ID consultation has been requested for antibiotic management. Today patient is alert awake. Oriented to person and place. Still confused which could be baseline. States is tolerating p.o. intake well. REVIEW OF SYSTEMS: Unable to obtain. CURRENT MEDICATIONS: IV vancomycin and Zosyn. Other medications reviewed in medication list. ALLERGIES: PREDNISONE. PAST MEDICAL HISTORY: Pulmonary embolus, GERD, anemia, low back pain, hypothyroidism, hysterectomy, DVT, hypothyroidism, idiopathic cirrhosis, history of DVT Lower extremity wounds PAST SURGICAL HISTORY: Hysterectomy. FAMILY HISTORY: As per HPI. SOCIAL HISTORY: No smoking, no alcohol. assisted resident. PHYSICAL EXAMINATION: VITAL SIGNS: Afebrile, vital signs noted. CONSTITUTIONAL: Well-developed, well-nourished female in no acute distress, nontoxic appearing. HEENT: Normocephalic, atraumatic. Anicteric. Oropharynx, tongue moist NECK: Supple, no meningismus. No lymphadenopathy LUNGS: Clear. HEART: S1, S2. ABDOMEN: Soft, nontender, nondistended. GENITOURINARY: Blanco in place, DERMATOLOGIC: Warm, dry. Multiple skin breakdown bilateral buttocks. EXTREMITIES: Trace edema. NEUROLOGIC: Alert, awake, PSYCHIATRIC: Calm and cooperative and pleasant. LABORATORY DATA: WBC 2.9, hemoglobin 9.6, platelets 49 Lactate 2.8 UA showed pyuria Microbiology Blood culture positive for ESBL E. coli Urine culture positive for C albicans IMAGING: Signed PATIENT: JESSICA POWERS ACCOUNT: [id number] : 1955 LOCATION: [facility] AGE: 65 SEX: F EXAM STATUS: ADM IN ORD. PHYSICIAN: MUSHTAQ RIVERA MD REASON: Cirrhosis, increasing abdominal pain and girth, assess for ascites PROCEDURE: ABDOMEN LTD EXAM: ULTRASOUND ABDOMEN LIMITED CLINICAL HISTORY: Reason: Cirrhosis, increasing abdominal pain and girth, assess for ascites / Spl. Instructions: / History: COMPARISON: None available. TECHNIQUE: Limited ultrasound examination of the abdomen was performed. FINDINGS: There is moderate ascites in the right abdomen. The main and right and left portal veins are patent and demonstrate hepatopedal flow. There is nodularity of the right hepatic lobe. Right hepatic lobe measures 12.7 cm. The left hepatic lobe is obscured due to overlying bowel gas. On single image the spleen size appears prominent. IMPRESSION: 1. There is moderate ascites in the right abdomen. 2. Hepatic cirrhosis. 3. Portal flow is hepatopedal. Chest x-ray no acute changes CT head no acute changes IMPRESSION: Sepsis from gram-negative bacteremia ESBL E. 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 Continue Merrem and fluconazole 2. Discontinue Zosyn 3. Change blanco if not done already 4. Monitor labs and cultures. 5. Trend CBC 6. Continue supportive care Discussed with nursing staff. Thank you, Dr. Rivera, for consulting Infectious Disease to participate in this patient's care. If you have any questions, do not hesitate to contact me. ARELY GODINEZ MD May 09, 2021 13:53
[2021-05-09] MEDS: FLUCONAZOLE 100MG/50ML PREMIX 50 ML IV SCH (14:12)
[2021-05-09 15:00] VITALS: BP 123/65
[2021-05-09 19:00] VITALS: BP 122/59
[2021-05-09] MEDS: LACTULOSE 20 GM/30 ML SOLUTION. PO SCH (21:00)
[2021-05-09 23:00] VITALS: BP 104/47
[2021-05-10 03:10] VITALS: BP 117/55
[2021-05-10] MEDS: MEROPENEM 500 MG in IV NORMAL SALINE 50ML 50 ML IV SCH ×3 (06:12→22:10)
[2021-05-10 07:00] VITALS: BP 125/63
[2021-05-10 07:56] LABS: ALBUMIN 1.5 g/dL (3.4-5.0); ALBUMIN/GLOBULIN RATIO 0.3 (1.0-1.7); CALCIUM 7.4 mg/dL (8.5-10.1); CREATININE 0.9 mg/dL (0.6-1.0); GFR 62.8; TOTAL BILIRUBIN 1.6 mg/dL (0.2-1.0); TOTAL PROTEIN 6.5 g/dL (6.4-8.2)
[2021-05-10] MEDS ORDERED: MAGNESIUM SULFATE 4GM 100 ML IV ONE (09:00)
[2021-05-10] MEDS ORDERED: POTASSIUM BICARB 20 MEQ EFFERVESCENT TABLET. PO ONE ×2 (09:00→11:00)
[2021-05-10] MEDS: FUROSEMIDE 40 MG TABLET. PO SCH (09:00)
[2021-05-10] MEDS: LACTULOSE 20 GM/30 ML SOLUTION. PO SCH ×2 (09:31→20:44)
[2021-05-10] MEDS: LACTOBACILLUS RHAMNOSUS GG 1 CAPSULE. PO SCH (09:31)
[2021-05-10] MEDS: PANTOPRAZOLE IV PUSH 40 MG VIAL. IVP SCH (09:32)
[2021-05-10] MEDS: NYSTATIN TOPICAL POWDER 15GM BOTTLE. TP SCH ×2 (09:33→20:46)
[2021-05-10 11:00] VITALS: BP 124/73
--- NOTE | 2021-05-10 12:23 | PDOC ---
Date of Service: DATE: 05/10/21 TIME: 12:20 Subjective: Subjective: "I drank some juice." Objective: Objective: D/w nurse - not eating. Vital Signs: Vital Signs Date Time Temp Pulse Resp B/P (MAP) Pulse Ox O2 Delivery O2 Flow Rate FiO2 05/10/21 08:00 Room Air 05/10/21 07:00 97.4 87 18 125/63 (83) 96 97.4 Labs: Laboratory Tests Test 05/10/21 06:15 Sodium Level 147 mmol/L Potassium Level 3.0 mmol/L Chloride Level 110 mmol/L Carbon Dioxide Level 28 mmol/L Anion Gap 9 Blood Urea Nitrogen 8 mg/dL Creatinine 0.9 mg/dL Estimated GFR (Cockcroft-Gault) 62.8 BUN/Creatinine Ratio 9 Glucose Level 85 mg/dL Calcium Level 7.4 mg/dL Magnesium Level 1.6 mg/dL Total Bilirubin 1.6 mg/dL Aspartate Amino Transf (AST/SGOT) 36 U/L Alanine Aminotransferase (ALT/SGPT) 12 U/L Alkaline Phosphatase 146 U/L Total Protein 6.5 g/dL Albumin 1.5 g/dL Albumin/Globulin Ratio 0.3 PE: GEN: chronically ill - up in chair, lactulose untouched LUNGS: CTAB HEART: RRR ABD: obese, soft NEURO/PSYCH: alert, still confused A/P: UTI/E coli bacteremia, cirrhosis, encephalopathy Dysphagia (okay for PO), lack of appetite -- Could try Xifaxan if won't take lactulose - I recall this being a problem on past discharge - not available at facility? Justicifation of Admission Dx: Justifications for Admission: Justification of Admission Dx: Yes BRUNO KRUSE May 10, 2021 12:23
--- NOTE | 2021-05-10 13:11 | PDOC ---
Infectious Disease Note Subjective Subjective feeling better ROS ROS no n/v/d/sob Vital Sign Vital Signs Vital Signs Date Time Temp Pulse Resp B/P (MAP) Pulse Ox O2 Delivery O2 Flow Rate FiO2 05/10/21 11:00 98.1 72 18 124/73 (90) 97 Room Air 98.1 Physical Exam PHYSICAL EXAM CONSTITUTIONAL: Well-developed, well-nourished female in no acute distress, nontoxic appearing. HEENT: Normocephalic, atraumatic. Anicteric. Oropharynx, tongue moist NECK: Supple, no meningismus. No lymphadenopathy LUNGS: Clear. HEART: S1, S2. ABDOMEN: Soft, nontender, nondistended. GENITOURINARY: Martinez in place, DERMATOLOGIC: Warm, dry. Multiple skin breakdown bilateral buttocks. EXTREMITIES: Trace edema. NEUROLOGIC: Alert, awake, PSYCHIATRIC: Calm and cooperative and pleasant. Labs Lab Laboratory Tests Test 05/10/21 06:15 Sodium Level 147 mmol/L (136-145) Potassium Level 3.0 mmol/L (3.5-5.1) Chloride Level 110 mmol/L (98-107) Carbon Dioxide Level 28 mmol/L (21-32) Anion Gap 9 (6-14) Blood Urea Nitrogen 8 mg/dL (7-20) Creatinine 0.9 mg/dL (0.6-1.0) Estimated GFR (Cockcroft-Gault) 62.8 BUN/Creatinine Ratio 9 (6-20) Glucose Level 85 mg/dL (70-99) Calcium Level 7.4 mg/dL (8.5-10.1) Magnesium Level 1.6 mg/dL (1.8-2.4) Total Bilirubin 1.6 mg/dL (0.2-1.0) Aspartate Amino Transf (AST/SGOT) 36 U/L (15-37) Alanine Aminotransferase (ALT/SGPT) 12 U/L (14-59) Alkaline Phosphatase 146 U/L (46-116) Total Protein 6.5 g/dL (6.4-8.2) Albumin 1.5 g/dL (3.4-5.0) Albumin/Globulin Ratio 0.3 (1.0-1.7) Micro Microbiology 05/06/21 Urine Culture - Final, Complete Terri Albicans 05/06/21 Blood Culture - Final, Complete Escherichia Coli Esbl Escherichia Coli Objective Assessment Sepsis from gram-negative bacteremia ESBL E. 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
--- NOTE | 2021-05-10 13:12 | PDOC ---
[employer] PROGRESS NOTE Date of Service DOS: DATE: 05/10/21 TIME: 13:10 Chief Complaint Chief Complaint A/P: Acute encephalopathy - likely multifactorial metabolic with chronic hepatic encephalopathy and acute UTI. Would decrease sedating meds (cyclobenzaprine, lyrica) Terri UTI - fluconazole ESBL bacteremia - merrem [id number]. Consult ID for further recommendations Lactic acidosis - likely due to early sepsis, improving Transaminitis - likely related to cirrhosis Thrombocytopenia - likely related to liver disease of idiopathic etiology Cirrhotic liver - noted with secondary sequela of portal hypertension including splenomegaly and abdominal varices on CT over a year ago. Lactulose GERD - controlled w/ PPI Hypomagnesemia - replaced H/o LLE DVT - was previously on Eliquis. Was started 09/2020 while at [facility] in [place] Acute urinary retention due to bladder outlet obstruction - has blanco placed, is chronic now Severe protein calorie malnutrition - CAKE KNOCKER for swallowing. IV nutrition History of bladder suspension Hypothyroidism Lumbar radiculopathy. Gastroesophageal reflux disease with varices on CT Lumbago sciatica. Cognitive communication deficit. Bilateral lower extremity wounds - seeing wound care. S/p left leg tibia hematoma evacuation. Wound care to see FEN - General diet PPX - on hold for thrombocytopenia FULL CODE Dispo - inpatient History of Present Illness History of Present Illness Ms Rdz is a 65yo female with PMHx Anemia, DVT, GERD, Hypertension, Hypothyroidism, idiopathic cirrhosis, and bilateral lower extremity wounds who comes to ED via EMS from SNF for concerns of worsening altered mental status. EMS reported that they were told by the staff there that the patient has been progressively weak with altered mental status for about 1 week. She gives no me aningful history, but son, bedside notes progressively declining in June of 2020 after a fall where and she was on the floor in her home for for 5 days unable to reach the phone or receive assistance. The patient has had dramatic decline in overall physical condition since that time. She has had multiple hospitalizations for similar presentation, encephalopathy, failure to thrive. The patient's son who is here at the bedside, is her power of associate scientist. The patient does not reportedly have any advanced directive. Her son reports that for now he would like to keep her a full code. The patient has a history of recurrent urinary tract infection, left lower leg wound, leg hematoma, requiring surgical debridement and wound VAC, liver disease with encephalopathy. Her son reports no history of alcohol use. The patient quit smoking a few years ago reportedly. No reported fevers. The patient mumbles incoherently, she is unable to communicate effectively. Labs with WBC 11, Hb 12.5, platelets 122, NA 139, K3.9, BUN 10, CR 0.9, glucose 115, calcium 7.2, phosphorus 3.5, magnesium 1.6, bilirubin 2.5, AST 57, ALT 17, alkaline phosphatase 200, ammonia 82, high-sensitivity troponin is 6, albumin 1.6, lactic acid 4, urinalysis with large leuk esterase and positive nitrites Noncontrast CT head with no acute abnormalities Chest radiograph no acute abnormalities 05/09: Still confused this morning but eating a little bit refusing some medications including lactulose. Blood cultures returned positive for ESBL, and urine with Terri. Platelets dropped to 49 now pancytopenic. 05/10: Sitting up eating. Confused. Took her lactulose this morning. Needs PICC or midline for her ESBL treatment outpatient Vitals/I&O Vitals/I&O: Vital Signs Date Time Temp Pulse Resp B/P (MAP) Pulse Ox O2 Delivery O2 Flow Rate FiO2 05/10/21 11:00 98.1 72 18 124/73 (90) 97 Room Air 98.1 I & O 05/09/21 05/09/21 05/10/21 15:00 23:00 07:00 Intake Total 20 ml 70 ml 240 ml Balance 20 ml 70 ml 240 ml Physical Exam General: Cooperative, mild distress, Other (Confused) Lungs: Clear Abdomen: Normal bowel sounds, Soft, No tenderness, No hepatosplenomegaly, No masses Extremities: Other (Scant edema) Skin: Other (Intertrigo, RLE bruising) Labs Labs: Laboratory Tests Test 05/10/21 06:15 Sodium Level 147 mmol/L (136-145) Potassium Level 3.0 mmol/L (3.5-5.1) Chloride Level 110 mmol/L (98-107) Carbon Dioxide Level 28 mmol/L (21-32) Anion Gap 9 (6-14) Blood Urea Nitrogen 8 mg/dL (7-20) Creatinine 0.9 mg/dL (0.6-1.0) Estimated GFR (Cockcroft-Gault) 62.8 BUN/Creatinine Ratio 9 (6-20) Glucose Level 85 mg/dL (70-99) Calcium Level 7.4 mg/dL (8.5-10.1) Magnesium Level 1.6 mg/dL (1.8-2.4) Total Bilirubin 1.6 mg/dL (0.2-1.0) Aspartate Amino Transf (AST/SGOT) 36 U/L (15-37) Alanine Aminotransferase (ALT/SGPT) 12 U/L (14-59) Alkaline Phosphatase 146 U/L (46-116) Total Protein 6.5 g/dL (6.4-8.2) Albumin 1.5 g/dL (3.4-5.0) Albumin/Globulin Ratio 0.3 (1.0-1.7) Assessment and Plan Assessmemt and Plan Problems Medical Problems: (1) Altered mental status Status: Acute (2) Failure to thrive Status: Acute (3) Lactic acidosis Status: Acute (4) Metabolic encephalopathy Status: Acute (5) Multiple wounds of skin Status: Acute (6) Sepsis Status: Acute (7) Urinary tract infection Status: Acute Comment Review of Relevant I have reviewed the following items tracie (where applicable) has been applied. Medications: Current Medications Medications (Trade) Dose Ordered Sig/Lizette Route PRN Reason Start Time Stop Time Status Last Admin Dose Admin Potassium Bicarbonate (Potassium Effervescent Tablet) 40 meq 1X ONCE PO 05/10/21 09:00 05/10/21 09:01 DC 05/10/21 09:32 Potassium Bicarbonate (Potassium Effervescent Tablet) 40 meq 1X ONCE PO 05/10/21 11:00 05/10/21 11:01 DC 05/10/21 12:34 Magnesium Sulfate 100 ml @ 25 mls/hr 1X ONCE IV 05/10/21 09:00 05/10/21 12:59 DC 05/10/21 09:33 Justifications for Admission Other Justification Acute metabolic encephalopathy JOHAN RIVERA MD May 10, 2021 13:12
[2021-05-10] MEDS: FLUCONAZOLE 100MG/50ML PREMIX 50 ML IV SCH (13:36)
[2021-05-10] MEDS: rifAXIMin 550 MG TABLET PO SCH ×3 (14:00→20:45)
[2021-05-10 15:00] VITALS: BP 102/62
[2021-05-10 19:00] VITALS: BP 142/63
[2021-05-10 23:00] VITALS: BP 132/64
[2021-05-11 03:00] VITALS: BP 144/68
[2021-05-11] MEDS: MEROPENEM 500 MG in IV NORMAL SALINE 50ML 50 ML IV SCH ×3 (05:52→22:00)
[2021-05-11 07:00] VITALS: BP 124/52
[2021-05-11] MEDS: rifAXIMin 550 MG TABLET PO SCH ×2 (09:00→20:26)
[2021-05-11] MEDS: FUROSEMIDE 40 MG TABLET. PO SCH (09:00)
[2021-05-11] MEDS: LACTOBACILLUS RHAMNOSUS GG 1 CAPSULE. PO SCH ×2 (09:00→20:26)
[2021-05-11] MEDS: LACTULOSE 20 GM/30 ML SOLUTION. PO SCH ×2 (09:00→21:00)
[2021-05-11] MEDS: PANTOPRAZOLE IV PUSH 40 MG VIAL. IVP SCH (09:20)
[2021-05-11] MEDS: NYSTATIN TOPICAL POWDER 15GM BOTTLE. TP SCH ×2 (09:21→20:26)
[2021-05-11 09:57] LABS: ALBUMIN 1.5 g/dL (3.4-5.0); ALBUMIN/GLOBULIN RATIO 0.3 (1.0-1.7); CALCIUM 7.8 mg/dL (8.5-10.1); CREATININE 0.7 mg/dL (0.6-1.0); POTASSIUM 3.7 mmol/L (3.5-5.1); TOTAL BILIRUBIN 1.3 mg/dL (0.2-1.0); TOTAL PROTEIN 6.9 g/dL (6.4-8.2)
[2021-05-11 11:00] VITALS: BP 112/60
[2021-05-11] MEDS: FLUCONAZOLE 100MG/50ML PREMIX 50 ML IV SCH (13:00)
--- NOTE | 2021-05-11 13:39 | PDOC ---
Infectious Disease Note Subjective Subjective feeling better ROS ROS No nausea vomiting diarrhea Vital Sign Vital Signs Vital Signs Date Time Temp Pulse Resp B/P (MAP) Pulse Ox O2 Delivery O2 Flow Rate FiO2 05/11/21 11:00 97.7 84 14 112/60 (77) 97 Room Air 97.7 Physical Exam PHYSICAL EXAM CONSTITUTIONAL: Well-developed, well-nourished female in no acute distress, nontoxic appearing. HEENT: Normocephalic, atraumatic. Anicteric. Oropharynx, tongue moist NECK: Supple, no meningismus. No lymphadenopathy LUNGS: Clear. HEART: S1, S2. ABDOMEN: Soft, nontender, nondistended. GENITOURINARY: Martinez in place, DERMATOLOGIC: Warm, dry. Multiple skin breakdown bilateral buttocks. EXTREMITIES: Trace edema. NEUROLOGIC: Alert, awake, PSYCHIATRIC: Calm and cooperative and pleasant. Labs Lab Laboratory Tests Test 05/11/21 09:30 Sodium Level 145 mmol/L (136-145) Potassium Level 3.7 mmol/L (3.5-5.1) Chloride Level 111 mmol/L (98-107) Carbon Dioxide Level 27 mmol/L (21-32) Anion Gap 7 (6-14) Blood Urea Nitrogen 9 mg/dL (7-20) Creatinine 0.7 mg/dL (0.6-1.0) Estimated GFR (Cockcroft-Gault) 84.0 BUN/Creatinine Ratio 13 (6-20) Glucose Level 91 mg/dL (70-99) Calcium Level 7.8 mg/dL (8.5-10.1) Total Bilirubin 1.3 mg/dL (0.2-1.0) Aspartate Amino Transf (AST/SGOT) 59 U/L (15-37) Alanine Aminotransferase (ALT/SGPT) 18 U/L (14-59) Alkaline Phosphatase 161 U/L (46-116) Total Protein 6.9 g/dL (6.4-8.2) Albumin 1.5 g/dL (3.4-5.0) Albumin/Globulin Ratio 0.3 (1.0-1.7) Micro Microbiology 05/06/21 Urine Culture - Final, Complete Terri Albicans 05/06/21 Blood Culture - Final, Complete Escherichia Coli Esbl Escherichia Coli Objective Assessment Sepsis from gram-negative bacteremia ESBL E. 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
[2021-05-11 15:00] VITALS: BP 95/34
--- NOTE | 2021-05-11 18:55 | PDOC ---
GENERAL General: Patient examined chart reviewed today's hospital day 6 for this patient with cryptogenic cirrhosis and marked debility [facility] admitted with acute metabolic encephalopathy secondary to Terri urinary tract infection and ESBL E. coli bacteremia. We appreciate subspecialty support. Antimicrobials are guided by infectious diseases. She is awake and interactive tonight appears to be at her baseline mental status which is confused. Time spent today is 30 minutes with greater than 50% in counseling and coordination of care most of which in discussion with patient and extensive review of records regarding care plan and progress. Problems: (1) Infection due to extended-spectrum ewjc-mwwlwaqmf-zazkfrbrm Escherichia coli (2) Urinary tract infection (3) Candidal UTI (urinary tract infection) (4) Failure to thrive (5) Cirrhosis of liver (6) Metabolic encephalopathy VITAL SIGNS Vital Signs/I&O: Vital Signs Date Time Temp Pulse Resp B/P (MAP) Pulse Ox O2 Delivery O2 Flow Rate FiO2 05/11/21 15:00 97.7 93 14 95/34 (54) 98 Room Air 97.7 I & O 05/10/21 05/10/21 05/11/21 15:00 23:00 07:00 Intake Total 350 ml 400 ml Balance 350 ml 400 ml Patient laying in bed resting pleasant at baseline orientation in no acute distress Neck is soft and supple no adenopathy or thyromegaly noted Chest is clear to auscultation Heart S1-S2 normal regular rate and rhythm no murmurs or gallops are noted Abdomen soft nontender nondistended no masses organomegaly noted Extremity exam is unremarkable for acute abnormality ALLERGIES Allergies: Allergies Coded Allergies Type Severity Reaction Last Updated Verified prednisone Allergy Intermediate 03/27/21 Yes I S O L A T I O N *CONTACT* Allergy Unknown 03/27/21 Yes MEDS Medications: Current Medications Medications (Trade) Dose Ordered Sig/Lizette Start Time Stop Time Status Last Admin Dose Admin Acetaminophen (Tylenol) 650 mg PRN Q6HRS PRN 05/07/21 07:00 Dextrose/Sodium Chloride 1,000 ml @ 100 mls/hr 1X ONCE 05/06/21 23:30 05/07/21 09:29 DC 05/07/21 01:15 Enoxaparin Sodium (Lovenox 40mg Syringe) 40 mg Q24H 05/07/21 15:00 05/09/21 11:50 DC 05/08/21 14:45 Fluconazole/ Sodium Chloride 50 ml @ 100 mls/hr Q24H 05/09/21 13:00 05/10/21 13:36 Furosemide (Lasix) 40 mg DAILY 05/08/21 09:00 05/08/21 11:06 Lactobacillus Rhamnosus (Culturelle) 1 cap DAILY 05/08/21 09:00 05/10/21 09:31 Lactulose (Lactulose) 20 gm 1X ONCE 05/08/21 21:00 05/08/21 21:01 DC Magnesium Sulfate 100 ml @ 25 mls/hr 1X ONCE 05/10/21 09:00 05/10/21 12:59 DC 05/10/21 09:33 Magnesium Sulfate/ Dextrose 100 ml @ 100 mls/hr 1X ONCE 05/06/21 22:30 05/06/21 23:29 DC 05/06/21 22:18 Meropenem 500 mg/ Sodium Chloride 50 ml @ 100 mls/hr Q8HRS 05/09/21 12:00 05/11/21 05:52 Non-Formulary Medication (Omeprazole ) 1 cap DAILY 05/08/21 09:00 UNV Nystatin (Nystop) 1 zena BID 05/07/21 21:00 05/11/21 09:21 Ondansetron HCl (Zofran) 4 mg PRN Q8HRS PRN 05/06/21 23:15 05/07/21 23:14 DC Pantoprazole Sodium (PROTONIX VIAL for IV PUSH) 40 mg DAILYAC 05/09/21 07:30 05/11/21 09:20 Pantoprazole Sodium (Protonix) 40 mg DAILYAC 05/08/21 07:30 05/08/21 09:37 DC Pharmacy Consult (C.diff Med Screen By Rx) 1 each 1X ONCE 05/07/21 01:00 05/07/21 01:01 Cancel Piperacillin Sod/ Tazobactam Sod (Zosyn Per Pharmacy) 1 each PRN DAILY PRN 05/07/21 11:45 Cancel Piperacillin Sod/ Tazobactam Sod 3.375 gm/Sodium Chloride 50 ml @ 100 mls/hr Q6HRS 05/07/21 12:00 05/09/21 11:50 DC 05/09/21 05:52 Potassium Bicarbonate (Potassium Effervescent Tablet) 40 meq 1X ONCE 05/10/21 11:00 05/10/21 11:01 DC 05/10/21 12:34 Potassium Chloride/Water 100 ml @ 100 mls/hr Q1H 05/09/21 06:45 05/09/21 10:44 DC 05/09/21 12:10 Rifaximin (Xifaxan) 550 mg Q12HR 05/10/21 14:00 Sodium Chloride 1,000 ml @ 1,000 mls/hr 1X ONCE 05/06/21 22:30 05/06/21 23:29 DC Vancomycin HCl 1.5 gm/Sodium Chloride 500 ml @ 250 mls/hr 1X ONCE 05/06/21 20:30 05/06/21 22:29 UNV Vancomycin HCl 1.75 gm/Sodium Chloride 500 ml @ 250 mls/hr 1X ONCE 05/06/21 20:45 05/06/21 22:44 DC 05/06/21 22:09 Vitamin A/Vitamin D (Vitamin A & D Ointment) 1 zena PRN Q1HR PRN 05/08/21 15:15 Zinc Oxide (Zinc Oxide 20% Topical) 1 zena PRN Q4HRS PRN 05/08/21 15:15 LAB Lab: Laboratory Tests Test 05/11/21 09:30 Sodium Level 145 mmol/L (136-145) Potassium Level 3.7 mmol/L (3.5-5.1) Chloride Level 111 mmol/L (98-107) H Carbon Dioxide Level 27 mmol/L (21-32) Anion Gap 7 (6-14) Blood Urea Nitrogen 9 mg/dL (7-20) Creatinine 0.7 mg/dL (0.6-1.0) Estimated GFR (Cockcroft-Gault) 84.0 BUN/Creatinine Ratio 13 (6-20) Glucose Level 91 mg/dL (70-99) Calcium Level 7.8 mg/dL (8.5-10.1) L Total Bilirubin 1.3 mg/dL (0.2-1.0) H Aspartate Amino Transferase (AST) 59 U/L (15-37) H Alanine Aminotransferase (ALT) 18 U/L (14-59) Alkaline Phosphatase 161 U/L (46-116) H Total Protein 6.9 g/dL (6.4-8.2) Albumin 1.5 g/dL (3.4-5.0) L Albumin/Globulin Ratio 0.3 (1.0-1.7) L Laboratory Tests 05/11/21 09:30 ASSESSMENT & PLAN A&P Plan as noted above This note was created using [employer] and may have omissions and/or errors due to the nature of real-time voice fire boss. Justifications for Admission Other Justification Acute metabolic encephalopathy Nutrition Consultation Dietary Evaluation: Recommendations by RD: Dietary education by RD, Increase Calorie Intake, Protein supplementation Comments: REC diet per SLICE CUTTING MACHINE OPERATOR HELPER with oral nutrition supplements, low Na, high protein with liver disease Ensure enlive -[place] flavor tid REC mvi and vit c per wound protocal Expected Outcomes/Goals: to meet >75% est nutr needs via po intake and oral nutrition supplements Interpretation of weight loss: >5% in 1 month Malnutrition Findings: Food and Nutrition Intake (Sev: <50% est energy req 5days Body Fat Depletion (Non Severe: Mild Depletion Weight Status: Obese Problem Qualifiers (1) Urinary tract infection: Urinary tract infection type: site unspecified (2) Failure to thrive: Failure to thrive age range: in adult Qualified Codes: R62.7 - Adult failure to thrive TIMBO TRIPLETT MD May 11, 2021 18:55
[2021-05-11 19:00] VITALS: BP 100/50
[2021-05-11 23:19] VITALS: BP 122/59
[2021-05-12 03:00] VITALS: BP 109/58
[2021-05-12] MEDS: MEROPENEM 500 MG in IV NORMAL SALINE 50ML 50 ML IV SCH ×3 (05:18→21:45)
[2021-05-12] MEDS: PANTOPRAZOLE IV PUSH 40 MG VIAL. IVP SCH (05:19)
[2021-05-12 07:00] VITALS: BP 112/59
[2021-05-12 07:27] LABS: BASO % 1 % (0-3); EOS # 0.1 x10^3/uL (0.0-0.7); EOS % 5 % (0-3); HEMOGLOBIN 9.8 g/dL (12.0-15.5); LYMPH # 0.7 x10^3/uL (1.0-4.8); LYMPH % 32 % (24-48); MEAN CORPUSCULAR HEMOGLOBIN 30 pg (25-35); MEAN CORPUSCULAR HGB CONC 33 g/dL (31-37); MEAN CORPUSCULAR VOLUME 93 fL (79-100); MONO # 0.2 x10^3/uL (0.0-1.1); MONO % 7 % (0-9); NEUT # 1.3 x10^3/uL (1.8-7.7); NEUT % 56 % (31-73); PLATELET COUNT 64 x10^3/uL (140-400); RED BLOOD COUNT 3.24 x10^6/uL (3.50-5.40); RED CELL DISTRIBUTION WIDTH 19.1 % (11.5-14.5); WHITE BLOOD COUNT 2.3 x10^3/uL (4.0-11.0)
[2021-05-12 07:42] LABS: ALBUMIN 1.6 g/dL (3.4-5.0); ALBUMIN/GLOBULIN RATIO 0.3 (1.0-1.7); CALCIUM 7.9 mg/dL (8.5-10.1); CREATININE 0.8 mg/dL (0.6-1.0); POTASSIUM 3.5 mmol/L (3.5-5.1); TOTAL BILIRUBIN 1.3 mg/dL (0.2-1.0); TOTAL PROTEIN 6.6 g/dL (6.4-8.2)
[2021-05-12] MEDS: LACTULOSE 20 GM/30 ML SOLUTION. PO SCH ×2 (09:00→21:08)
[2021-05-12] MEDS: FUROSEMIDE 40 MG TABLET. PO SCH (09:00)
[2021-05-12] MEDS: rifAXIMin 550 MG TABLET PO SCH ×2 (09:29→21:07)
[2021-05-12] MEDS: NYSTATIN TOPICAL POWDER 15GM BOTTLE. TP SCH ×2 (09:30→21:08)
--- NOTE | 2021-05-12 10:59 | PDOC ---
GENERAL General: Patient examined chart reviewed no events overnight noted. Patient is without new complaint this morning except that she is not enjoying the food. She is on a dysphagia diet and it sounds like has been on that for some time. She denies any pain. Appreciate subspecialty support. We will continue current management Problems: (1) Cirrhosis of liver (2) Infection due to extended-spectrum huii-jbrjgigei-lffdxulef Escherichia coli (3) Candidal UTI (urinary tract infection) (4) Metabolic encephalopathy VITAL SIGNS Vital Signs/I&O: Vital Signs Date Time Temp Pulse Resp B/P (MAP) Pulse Ox O2 Delivery O2 Flow Rate FiO2 05/12/21 08:00 Room Air 05/12/21 07:00 97.3 83 20 112/59 (76) 94 97.3 I & O 05/11/21 05/11/21 05/12/21 15:00 23:00 07:00 Intake Total 0 ml 0 ml Output Total 300 ml 50 ml Balance -300 ml -50 ml Patient is resting comfortably in bed this morning she has no new complaints. She tells me that she does not like the food HEENT exam is unremarkable for acute abnormality Neck is soft and supple no adenopathy or thyromegaly Chest is clear to auscultation Heart S1-S2 normal regular rate and rhythm no murmurs or gallops are noted Abdomen is obese protuberant soft nontender nondistended no masses organomegaly noted Extremity exam is unremarkable for acute abnormality ALLERGIES Allergies: Allergies Coded Allergies Type Severity Reaction Last Updated Verified prednisone Allergy Intermediate 03/27/21 Yes I S O L A T I O N *CONTACT* Allergy Unknown 03/27/21 Yes MEDS Medications: Current Medications Medications (Trade) Dose Ordered Sig/Lizette Start Time Stop Time Status Last Admin Dose Admin Acetaminophen (Tylenol) 650 mg PRN Q6HRS PRN 05/07/21 07:00 Dextrose/Sodium Chloride 1,000 ml @ 100 mls/hr 1X ONCE 05/06/21 23:30 05/07/21 09:29 DC 05/07/21 01:15 Enoxaparin Sodium (Lovenox 40mg Syringe) 40 mg Q24H 05/07/21 15:00 05/09/21 11:50 DC 05/08/21 14:45 Fluconazole/ Sodium Chloride 50 ml @ 100 mls/hr Q24H 05/09/21 13:00 05/10/21 13:36 Furosemide (Lasix) 40 mg DAILY 05/08/21 09:00 05/08/21 11:06 Lactobacillus Rhamnosus (Culturelle) 1 cap DAILY 05/08/21 09:00 05/11/21 20:26 Lactulose (Lactulose) 20 gm 1X ONCE 05/08/21 21:00 05/08/21 21:01 DC Magnesium Sulfate 100 ml @ 25 mls/hr 1X ONCE 05/10/21 09:00 05/10/21 12:59 DC 05/10/21 09:33 Magnesium Sulfate/ Dextrose 100 ml @ 100 mls/hr 1X ONCE 05/06/21 22:30 05/06/21 23:29 DC 05/06/21 22:18 Meropenem 500 mg/ Sodium Chloride 50 ml @ 100 mls/hr Q8HRS 05/09/21 12:00 05/11/21 05:52 Non-Formulary Medication (Omeprazole ) 1 cap DAILY 05/08/21 09:00 UNV Nystatin (Nystop) 1 zena BID 05/07/21 21:00 05/12/21 09:30 Ondansetron HCl (Zofran) 4 mg PRN Q8HRS PRN 05/06/21 23:15 05/07/21 23:14 DC Pantoprazole Sodium (PROTONIX VIAL for IV PUSH) 40 mg DAILYAC 05/09/21 07:30 05/11/21 09:20 Pantoprazole Sodium (Protonix) 40 mg DAILYAC 05/08/21 07:30 05/08/21 09:37 DC Pharmacy Consult (C.diff Med Screen By Rx) 1 each 1X ONCE 05/07/21 01:00 05/07/21 01:01 Cancel Piperacillin Sod/ Tazobactam Sod (Zosyn Per Pharmacy) 1 each PRN DAILY PRN 05/07/21 11:45 Cancel Piperacillin Sod/ Tazobactam Sod 3.375 gm/Sodium Chloride 50 ml @ 100 mls/hr Q6HRS 05/07/21 12:00 05/09/21 11:50 DC 05/09/21 05:52 Potassium Bicarbonate (Potassium Effervescent Tablet) 40 meq 1X ONCE 05/10/21 11:00 05/10/21 11:01 DC 05/10/21 12:34 Potassium Chloride/Water 100 ml @ 100 mls/hr Q1H 05/09/21 06:45 05/09/21 10:44 DC 05/09/21 12:10 Rifaximin (Xifaxan) 550 mg Q12HR 05/10/21 14:00 05/12/21 09:29 Sodium Chloride 1,000 ml @ 1,000 mls/hr 1X ONCE 05/06/21 22:30 05/06/21 23:29 DC Vancomycin HCl 1.5 gm/Sodium Chloride 500 ml @ 250 mls/hr 1X ONCE 05/06/21 20:30 05/06/21 22:29 UNV Vancomycin HCl 1.75 gm/Sodium Chloride 500 ml @ 250 mls/hr 1X ONCE 05/06/21 20:45 05/06/21 22:44 DC 05/06/21 22:09 Vitamin A/Vitamin D (Vitamin A & D Ointment) 1 zena PRN Q1HR PRN 05/08/21 15:15 Zinc Oxide (Zinc Oxide 20% Topical) 1 zena PRN Q4HRS PRN 05/08/21 15:15 LAB Lab: Laboratory Tests Test 05/12/21 05:50 White Blood Count 2.3 x10^3/uL (4.0-11.0) L Red Blood Count 3.24 x10^6/uL (3.50-5.40) L Hemoglobin 9.8 g/dL (12.0-15.5) L Hematocrit 30.0 % (36.0-47.0) L Mean Corpuscular Volume 93 fL (79-100) Mean Corpuscular Hemoglobin 30 pg (25-35) Mean Corpuscular Hemoglobin Concent 33 g/dL (31-37) Red Cell Distribution Width 19.1 % (11.5-14.5) H Platelet Count 64 x10^3/uL (140-400) L Neutrophils (%) (Auto) 56 % (31-73) Lymphocytes (%) (Auto) 32 % (24-48) Monocytes (%) (Auto) 7 % (0-9) Eosinophils (%) (Auto) 5 % (0-3) H Basophils (%) (Auto) 1 % (0-3) Neutrophils # (Auto) 1.3 x10^3/uL (1.8-7.7) L Lymphocytes # (Auto) 0.7 x10^3/uL (1.0-4.8) L Monocytes # (Auto) 0.2 x10^3/uL (0.0-1.1) Eosinophils # (Auto) 0.1 x10^3/uL (0.0-0.7) Basophils # (Auto) 0.0 x10^3/uL (0.0-0.2) Sodium Level 145 mmol/L (136-145) Potassium Level 3.5 mmol/L (3.5-5.1) Chloride Level 109 mmol/L (98-107) H Carbon Dioxide Level 27 mmol/L (21-32) Anion Gap 9 (6-14) Blood Urea Nitrogen 8 mg/dL (7-20) Creatinine 0.8 mg/dL (0.6-1.0) Estimated GFR (Cockcroft-Gault) 72.0 BUN/Creatinine Ratio 10 (6-20) Glucose Level 67 mg/dL (70-99) L Calcium Level 7.9 mg/dL (8.5-10.1) L Total Bilirubin 1.3 mg/dL (0.2-1.0) H Aspartate Amino Transferase (AST) 59 U/L (15-37) H Alanine Aminotransferase (ALT) 23 U/L (14-59) Alkaline Phosphatase 148 U/L (46-116) H Total Protein 6.6 g/dL (6.4-8.2) Albumin 1.6 g/dL (3.4-5.0) L Albumin/Globulin Ratio 0.3 (1.0-1.7) L Laboratory Tests 05/12/21 05:50 Laboratory Tests 05/12/21 05:50 ASSESSMENT & PLAN A&P Plan as noted above This note was created using [employer] and may have omissions and/or errors due to the nature of real-time voice manager medicaid. Justifications for Admission Other Justification Acute metabolic encephalopathy Nutrition Consultation Dietary Evaluation: Recommendations by RD: Dietary education by RD, Increase Calorie Intake, Protein supplementation Comments: REC diet per COUNTRY PRINTER with oral nutrition supplements, low Na, high protein with liver disease Ensure enlive -[place] flavor tid REC mvi and vit c per wound protocal Expected Outcomes/Goals: to meet >75% est nutr needs via po intake and oral nutrition supplements Interpretation of weight loss: >5% in 1 month Malnutrition Findings: Food and Nutrition Intake (Sev: <50% est energy req 5days Body Fat Depletion (Non Severe: Mild Depletion Weight Status: Obese TIMBO TRIPLETT MD May 12, 2021 10:59
[2021-05-12 11:00] VITALS: BP 119/51
--- NOTE | 2021-05-12 12:34 | PDOC ---
Infectious Disease Note Subjective: Subjective Pt feels better though continues to remain intermittently confused Vital Signs: Vital Signs Vital Signs Date Time Temp Pulse Resp B/P (MAP) Pulse Ox O2 Delivery O2 Flow Rate FiO2 05/12/21 11:00 97.2 80 20 119/51 (73) 94 Room Air 97.2 Physical Exam: PHYSICAL EXAM CONSTITUTIONAL: Well-developed, well-nourished female in no acute distress, nontoxic appearing. HEENT: Normocephalic, atraumatic. Anicteric. Oropharynx, tongue moist NECK: Supple, no meningismus. No lymphadenopathy LUNGS: Clear. HEART: S1, S2. ABDOMEN: Soft, nontender, nondistended. GENITOURINARY: Martinez in place, DERMATOLOGIC: Warm, dry. Multiple skin breakdown bilateral buttocks. EXTREMITIES: Trace edema. NEUROLOGIC: Alert, awake, PSYCHIATRIC: Calm and cooperative and pleasant. Right upper extremity PICC line clean Medications: Inpatient Meds: Medications reviewed. Labs: Lab Laboratory Tests Test 05/12/21 05:50 White Blood Count 2.3 x10^3/uL (4.0-11.0) Red Blood Count 3.24 x10^6/uL (3.50-5.40) Hemoglobin 9.8 g/dL (12.0-15.5) Hematocrit 30.0 % (36.0-47.0) Mean Corpuscular Volume 93 fL (79-100) Mean Corpuscular Hemoglobin 30 pg (25-35) Mean Corpuscular Hemoglobin Concent 33 g/dL (31-37) Red Cell Distribution Width 19.1 % (11.5-14.5) Platelet Count 64 x10^3/uL (140-400) Neutrophils (%) (Auto) 56 % (31-73) Lymphocytes (%) (Auto) 32 % (24-48) Monocytes (%) (Auto) 7 % (0-9) Eosinophils (%) (Auto) 5 % (0-3) Basophils (%) (Auto) 1 % (0-3) Neutrophils # (Auto) 1.3 x10^3/uL (1.8-7.7) Lymphocytes # (Auto) 0.7 x10^3/uL (1.0-4.8) Monocytes # (Auto) 0.2 x10^3/uL (0.0-1.1) Eosinophils # (Auto) 0.1 x10^3/uL (0.0-0.7) Basophils # (Auto) 0.0 x10^3/uL (0.0-0.2) Sodium Level 145 mmol/L (136-145) Potassium Level 3.5 mmol/L (3.5-5.1) Chloride Level 109 mmol/L (98-107) Carbon Dioxide Level 27 mmol/L (21-32) Anion Gap 9 (6-14) Blood Urea Nitrogen 8 mg/dL (7-20) Creatinine 0.8 mg/dL (0.6-1.0) Estimated GFR (Cockcroft-Gault) 72.0 BUN/Creatinine Ratio 10 (6-20) Glucose Level 67 mg/dL (70-99) Calcium Level 7.9 mg/dL (8.5-10.1) Total Bilirubin 1.3 mg/dL (0.2-1.0) Aspartate Amino Transf (AST/SGOT) 59 U/L (15-37) Alanine Aminotransferase (ALT/SGPT) 23 U/L (14-59) Alkaline Phosphatase 148 U/L (46-116) Total Protein 6.6 g/dL (6.4-8.2) Albumin 1.6 g/dL (3.4-5.0) Albumin/Globulin Ratio 0.3 (1.0-1.7) Objective: Assessment: Sepsis from gram-negative bacteremia ESBL E. 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
--- NOTE | 2021-05-12 13:06 | RAD ---
XR CHEST 1V INDICATION: PICC line placement verification COMPARISON STUDY: None. FINDINGS: Life Support Devices: New right PICC with tip overlying the superior cavoatrial junction. Lungs: Low lung volume. Mild perihilar opacities. Pleura: No pleural effusion or pneumothorax. Heart and Mediastinum: Stable cardiomediastinal silhouette and great vessels. Bones and Soft Tissues: Stable regional skeleton and soft tissues. IMPRESSION: 1. New right PICC with tip overlying the superior cavoatrial junction.. 2. Low lung volume with mild perihilar opacities, which could represent subsegmental atelectasis and/ or trace edema Electronically signed by: Asim Jack MD (05/12/2021 1:04 PM) [facility]
[2021-05-12] MEDS: FLUCONAZOLE 100MG/50ML PREMIX 50 ML IV SCH (13:21)
[2021-05-12 15:00] VITALS: BP 127/56
[2021-05-12 19:00] VITALS: BP 108/66
[2021-05-12 23:00] VITALS: BP 106/73
[2021-05-13 03:30] VITALS: BP 110/68
[2021-05-13] MEDS: MEROPENEM 500 MG in IV NORMAL SALINE 50ML 50 ML IV SCH (05:42)
[2021-05-13 06:07] LABS: BASO % 1 % (0-3); EOS # 0.1 x10^3/uL (0.0-0.7); EOS % 4 % (0-3); HEMATOCRIT 28.6 % (36.0-47.0); HEMOGLOBIN 9.2 g/dL (12.0-15.5); LYMPH # 0.5 x10^3/uL (1.0-4.8); LYMPH % 22 % (24-48); MEAN CORPUSCULAR HEMOGLOBIN 30 pg (25-35); MEAN CORPUSCULAR HGB CONC 32 g/dL (31-37); MEAN CORPUSCULAR VOLUME 93 fL (79-100); MONO # 0.2 x10^3/uL (0.0-1.1); MONO % 6 % (0-9); NEUT # 1.7 x10^3/uL (1.8-7.7); NEUT % 67 % (31-73); PLATELET COUNT 74 x10^3/uL (140-400); RED BLOOD COUNT 3.06 x10^6/uL (3.50-5.40); RED CELL DISTRIBUTION WIDTH 19.1 % (11.5-14.5); WHITE BLOOD COUNT 2.5 x10^3/uL (4.0-11.0)
[2021-05-13 06:25] LABS: ALBUMIN 1.6 g/dL (3.4-5.0); ALBUMIN/GLOBULIN RATIO 0.3 (1.0-1.7); CALCIUM 7.6 mg/dL (8.5-10.1); CREATININE 0.7 mg/dL (0.6-1.0); POTASSIUM 3.2 mmol/L (3.5-5.1); TOTAL BILIRUBIN 1.2 mg/dL (0.2-1.0); TOTAL PROTEIN 6.4 g/dL (6.4-8.2)
[2021-05-13 07:00] VITALS: BP 118/48
[2021-05-13] MEDS: LACTULOSE 20 GM/30 ML SOLUTION. PO SCH (09:00)
[2021-05-13] MEDS: FUROSEMIDE 40 MG TABLET. PO SCH (09:00)
[2021-05-13] MEDS: rifAXIMin 550 MG TABLET PO SCH (09:23)
[2021-05-13] MEDS: PANTOPRAZOLE IV PUSH 40 MG VIAL. IVP SCH (09:23)
[2021-05-13] MEDS: LACTOBACILLUS RHAMNOSUS GG 1 CAPSULE. PO SCH (09:23)
[2021-05-13] MEDS: NYSTATIN TOPICAL POWDER 15GM BOTTLE. TP SCH (09:29)
--- NOTE | 2021-05-13 10:43 | PDOC ---
Date of Service: DATE: 05/13/21 TIME: 10:38 Subjective: Subjective: "I already took my pills." Objective: Objective: D/w nurse - s/p PICC - DC soon? Not eating much and needs assistance, loose stools, refusing meds. Vital Signs: Vital Signs Date Time Temp Pulse Resp B/P (MAP) Pulse Ox O2 Delivery O2 Flow Rate FiO2 05/13/21 08:00 Room Air 05/13/21 07:00 98.4 82 16 118/48 (71) 95 98.4 Labs: Laboratory Tests Test 05/12/21 19:51 05/13/21 05:45 Glucose (Fingerstick) 79 mg/dL White Blood Count 2.5 x10^3/uL Red Blood Count 3.06 x10^6/uL Hemoglobin 9.2 g/dL Hematocrit 28.6 % Mean Corpuscular Volume 93 fL Mean Corpuscular Hemoglobin 30 pg Mean Corpuscular Hemoglobin Concent 32 g/dL Red Cell Distribution Width 19.1 % Platelet Count 74 x10^3/uL Neutrophils (%) (Auto) 67 % Lymphocytes (%) (Auto) 22 % Monocytes (%) (Auto) 6 % Eosinophils (%) (Auto) 4 % Basophils (%) (Auto) 1 % Neutrophils # (Auto) 1.7 x10^3/uL Lymphocytes # (Auto) 0.5 x10^3/uL Monocytes # (Auto) 0.2 x10^3/uL Eosinophils # (Auto) 0.1 x10^3/uL Basophils # (Auto) 0.0 x10^3/uL Sodium Level 146 mmol/L Potassium Level 3.2 mmol/L Chloride Level 110 mmol/L Carbon Dioxide Level 28 mmol/L Anion Gap 8 Blood Urea Nitrogen 9 mg/dL Creatinine 0.7 mg/dL Estimated GFR (Cockcroft-Gault) 84.0 BUN/Creatinine Ratio 13 Glucose Level 92 mg/dL Calcium Level 7.6 mg/dL Total Bilirubin 1.2 mg/dL Aspartate Amino Transf (AST/SGOT) 61 U/L Alanine Aminotransferase (ALT/SGPT) 18 U/L Alkaline Phosphatase 149 U/L Total Protein 6.4 g/dL Albumin 1.6 g/dL Albumin/Globulin Ratio 0.3 Imaging: CXR 05/12 IMPRESSION: 1. New right PICC with tip overlying the superior cavoatrial junction.. 2. Low lung volume with mild perihilar opacities, which could represent subsegmental atelectasis and/or trace edema PE: GEN: appears chronically ill, voice quiet LUNGS: CTAB HEART: RRR ABD: soft, non-tender NEURO/PSYCH: confused A/P: E coli bacteremia/UTI (sara), cirrhosis, encephalopathy, non-compliance - recurrent issue requiring frequent hospitalizations Pancytopenia -- Mental status still problematic - refusing meds, not eating much - similar to when we have seen in the past. Goals of care/DC per primary. Okay to hold lactulose if >4 stools/24 hrs - does look like she took Xifaxan after I saw. Justicifation of Admission Dx: Justifications for Admission: Justification of Admission Dx: Yes BRUNO KRUSE May 13, 2021 10:43
[2021-05-13 11:05] VITALS: BP 116/74
--- NOTE | 2021-05-13 11:09 | SNU/HH DC ---
DISCHARGE ORDERS DISCHARGE INFORMATION: DISCHARGE DATE: May 13, 2021 FINAL DIAGNOSIS Problems Medical Problems: (1) Altered mental status Status: Acute (2) Failure to thrive Status: Acute (3) Lactic acidosis Status: Acute (4) Metabolic encephalopathy Status: Acute (5) Multiple wounds of skin Status: Acute (6) Sepsis Status: Acute (7) Urinary tract infection Status: Acute CONDITION ON DISCHARGE: Stable CODE STATUS: Code Status: Full INTERMEDIATE: SNF STAY <30 DAYS: Yes POST DISCHARGE ORDERS: ACTIVITY ORDERS: Activity as tolerated WEIGHT BEARING STATUS: As tolerated DIET AFTER DISCHARGE: Cardiac CHECKS AFTER DISCHARGE: CHECKS AFTER DISCHARGE: Check blood press - daily FOLLOW-UP: LAB ORDERS FOR FOLLOW-UP: CBC, CMP, INR in 5 days TREATMENT/EQUIPMENT ORDERS: ADAPTIVE EQUIPMENT NEEDED: Front wheeled walker, Wheelchair Physical Therapy For: Evalulation/Treatment Occupational Therapy For: Evaluation/Treatment DISCHARGE MEDICATIONS: Home Meds Active Scripts Lactulose (LACTULOSE) 20 Gm/30 Ml Solution, 20 GM PO BID for hepatic enceph alopathy for 30 Days, #30 MISC 2 Refills Prov:YOLY SMITH MD 04/08/21 Pregabalin (LYRICA) 75 Mg Capsule, 50 MG PO TID for neuropathic pain for 30 Days, #60 CAP 2 Refills Prov:YOLY SMITH MD 04/08/21 Reported Medications Cyclobenzaprine Hcl (CYCLOBENZAPRINE HCL) 10 Mg Tablet, 10 MG PO TID for spasms, TAB 05/07/21 Omeprazole (OMEPRAZOLE) 20 Mg Capsule.dr, 1 CAP PO DAILY for gerd, #30 CAP 5 Refills 03/28/21 Nystatin (NYSTATIN) 15 Gm Powder, 1 SANDY TP BID for skin for 7 Days, #1 BOTTLE 0 Refills apply to affected area(s) 03/28/21 Potassium Chloride (POTASSIUM CHLORIDE ) 20 Meq Tablet.er, 20 MEQ PO DAILY for SUPPLEMENT, TAB.SR 03/28/21 Furosemide (LASIX) 40 Mg Tablet, 1 TAB PO DAILY for edema for 30 Days, #30 TAB 0 Refills 03/28/21 Multivit,Ther Iron,Ca,Fa & Min (THERA-M CAPLET) 1 Each Tablet, 1 TAB PO DAILY for supplement for 30 Days, #30 TAB 0 Refills 11/16/20 Lactobacillus Rhamnosus Gg (CULTURELLE) 1 Each Capsule, 1 CAP PO DAILY for probiotic for 30 Days, #30 CAP 0 Refills 11/16/20 Duloxetine Hcl (CYMBALTA) 60 Mg Capsule.dr, 1 CAP PO DAILY for depression, #90 CAP 3 Refills 11/16/20 Discontinued Scripts Amoxicillin (AMOXICILLIN) 500 Mg Capsule, 1 CAP PO BID for uti for 30 Days, #60 CAP 10 Refills Prov:YOLY SMITH MD 04/08/21 Amoxicillin/Potassium Clav (AUGMENTIN 875-125 TABLET) 1 Each Tablet, 1 TAB PO BID for uti for 10 Days, #20 TAB 0 Refills Prov:YOLY SMITH MD 04/08/21 Pantoprazole Sodium (PANTOPRAZOLE SODIUM ) 40 Mg Tablet.dr, 40 MG PO DAILYAC for reflux for 30 Days, #30 TAB.SR 2 Refills Prov:YOLY SMITH MD 04/08/21 [Dronabinol] 2.5 MG CAPSULE No Conflict Check, 2.5 MG PO BIDACLD for low appetite for 7 Days, #14 Prov:YOLY SMITH MD 04/08/21 Lactulose (LACTULOSE) 20 Gm/30 Ml Solution, 20 GM PO PRN BID PRN for CONST IPATION for 30 Days, #60 MISC 2 Refills Prov:YOLY SMITH MD 11/29/20 JHOAN KILLIAN MD May 13, 2021 11:09
--- NOTE | 2021-05-13 12:57 | PDOC ---
Infectious Disease Note Subjective: Subjective Pt without complaints ready for dc per team Vital Signs: Vital Signs Vital Signs Date Time Temp Pulse Resp B/P (MAP) Pulse Ox O2 Delivery O2 Flow Rate FiO2 05/13/21 11:05 98.3 78 16 116/74 (88) 93 Room Air 98.3 Physical Exam: PHYSICAL EXAM CONSTITUTIONAL: Well-developed, well-nourished female in no acute distress, nontoxic appearing. HEENT: Normocephalic, atraumatic. Anicteric. Oropharynx, tongue moist NECK: Supple, no meningismus. No lymphadenopathy LUNGS: Clear. HEART: S1, S2. ABDOMEN: Soft, nontender, nondistended. GENITOURINARY: Martinez in place, DERMATOLOGIC: Warm, dry. Multiple skin breakdown bilateral buttocks. EXTREMITIES: Trace edema. NEUROLOGIC: Alert, awake, PSYCHIATRIC: Calm and cooperative and pleasant. Right upper extremity PICC line clean Medications: Inpatient Meds: Medications reviewed. Labs: Lab Laboratory Tests Test 05/12/21 19:51 05/13/21 05:45 05/13/21 11:20 Glucose (Fingerstick) 79 mg/dL (70-99) White Blood Count 2.5 x10^3/uL (4.0-11.0) Red Blood Count 3.06 x10^6/uL (3.50-5.40) Hemoglobin 9.2 g/dL (12.0-15.5) Hematocrit 28.6 % (36.0-47.0) Mean Corpuscular Volume 93 fL (79-100) Mean Corpuscular Hemoglobin 30 pg (25-35) Mean Corpuscular Hemoglobin Concent 32 g/dL (31-37) Red Cell Distribution Width 19.1 % (11.5-14.5) Platelet Count 74 x10^3/uL (140-400) Neutrophils (%) (Auto) 67 % (31-73) Lymphocytes (%) (Auto) 22 % (24-48) Monocytes (%) (Auto) 6 % (0-9) Eosinophils (%) (Auto) 4 % (0-3) Basophils (%) (Auto) 1 % (0-3) Neutrophils # (Auto) 1.7 x10^3/uL (1.8-7.7) Lymphocytes # (Auto) 0.5 x10^3/uL (1.0-4.8) Monocytes # (Auto) 0.2 x10^3/uL (0.0-1.1) Eosinophils # (Auto) 0.1 x10^3/uL (0.0-0.7) Basophils # (Auto) 0.0 x10^3/uL (0.0-0.2) Sodium Level 146 mmol/L (136-145) Potassium Level 3.2 mmol/L (3.5-5.1) Chloride Level 110 mmol/L (98-107) Carbon Dioxide Level 28 mmol/L (21-32) Anion Gap 8 (6-14) Blood Urea Nitrogen 9 mg/dL (7-20) Creatinine 0.7 mg/dL (0.6-1.0) Estimated GFR (Cockcroft-Gault) 84.0 BUN/Creatinine Ratio 13 (6-20) Glucose Level 92 mg/dL (70-99) Calcium Level 7.6 mg/dL (8.5-10.1) Total Bilirubin 1.2 mg/dL (0.2-1.0) Aspartate Amino Transf (AST/SGOT) 61 U/L (15-37) Alanine Aminotransferase (ALT/SGPT) 18 U/L (14-59) Alkaline Phosphatase 149 U/L (46-116) Total Protein 6.4 g/dL (6.4-8.2) Albumin 1.6 g/dL (3.4-5.0) Albumin/Globulin Ratio 0.3 (1.0-1.7) SARS-CoV-2 Antigen (Rapid) Negative (NEGATIVE) Objective: Assessment: Sepsis from gram-negative bacteremia ESBL E. 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
[2021-05-13] MEDS: FLUCONAZOLE 100MG/50ML PREMIX 50 ML IV SCH (13:13)
[2021-05-13] MEDS ORDERED: ERTAPENEM 1 GM in IV NORMAL SALINE 50ML 50 ML IV ONE (14:00)
[2021-05-13 15:00] VITALS: BP 110/69
--- NOTE | 2021-05-13 16:26 | NUR ---
Pt discharged to PP. Called and gave report to Simba. PICC in place. Belongings packed by GRADER OPERATOR. Pt assisted to stretcher and was taken by EMS.
--- NOTE | 2021-05-13 18:37 | PDOC3 ---
Team Health-Discharge Summary Date of Admission: Date of Admission: May 06, 2021 Date of Discharge: Date of Discharge: May 13, 2021 Hospital Course: Hospital Course: Chief Complaint A/P: Acute encephalopathy - likely multifactorial metabolic with chronic hepatic encephalopathy and acute UTI. Would decrease sedating meds (cyclobenzaprine, lyrica) Terri UTI - fluconazole ESBL bacteremia - merrem [id number]. Consult ID for further recommendations Lactic acidosis - likely due to early sepsis, improving Transaminitis - likely related to cirrhosis Thrombocytopenia - likely related to liver disease of idiopathic etiology Cirrhotic liver - noted with secondary sequela of portal hypertension including splenomegaly and abdominal varices on CT over a year ago. Lactulose GERD - controlled w/ PPI Hypomagnesemia - replaced H/o LLE DVT - was previously on Eliquis. Was started 09/2020 while at [facility] in [place] Acute urinary retention due to bladder outlet obstruction - has blanco placed, is chronic now Severe protein calorie malnutrition - CRANE OPERATOR CAB for swallowing. IV nutrition History of bladder suspension Hypothyroidism Lumbar radiculopathy. Gastroesophageal reflux disease with varices on CT Lumbago sciatica. Cognitive communication deficit. Bilateral lower extremity wounds - seeing wound care. S/p left leg tibia hematoma evacuation. Wound care to see FEN - General diet PPX - on hold for thrombocytopenia FULL CODE Dispo - inpatient History of Present Illness History of Present Illness Ms Rdz is a 65yo female with PMHx Anemia, DVT, GERD, Hypertension, Hypothyroidism, idiopathic cirrhosis, and bilateral lower extremity wounds who comes to ED via EMS from SNF for concerns of worsening altered mental status. EMS reported that they were told by the staff there that the patient has been progressively weak with altered mental status for about 1 week. She gives no meaningful history, but son, bedside notes progressively declining in June of 2020 after a fall where and she was on the floor in her home for for 5 days unable to reach the phone or receive assistance. The patient has had dramatic decline in overall physical condition since that time. She has had multiple hospitalizations for similar presentation, encephalopathy, failure to thrive. The patient's son who is here at the bedside, is her power of patent prosecution attorney. The patient does not reportedly have any advanced directive. Her son reports that for now he would like to keep her a full code. The patient has a history of recurrent urinary tract infection, left lower leg wound, leg hematoma, requiring surgical debridement and wound VAC, liver disease with encephalopathy. Her son reports no history of alcohol use. The patient quit smoking a few years ago reportedly. No reported fevers. The patient mumbles incoherently, she is unable to communicate effectively. Labs with WBC 11, Hb 12.5, platelets 122, NA 139, K3.9, BUN 10, CR 0.9, glucose 115, calcium 7.2, phosphorus 3.5, magnesium 1.6, bilirubin 2.5, AST 57, ALT 17, alkaline phosphatase 200, ammonia 82, high-sensitivity troponin is 6, albumin 1.6, lactic acid 4, urinalysis with large leuk esterase and positive nitrites Noncontrast CT head with no acute abnormalities Chest radiograph no acute abnormalities 05/09: Still confused this morning but eating a little bit refusing some medications including lactulose. Blood cultures returned positive for ESBL, and urine with Terri. Platelets dropped to 49 now pancytopenic. 05/10: Sitting up eating. Confused. Took her lactulose this morning. Needs PICC or midline for her ESBL treatment outpatient 05/13 Patient evaluated examined at bedside. Ms. status notably improved. PICC line in place. Finish IV antibiotics at facility. Greater than 30 minutes spent on discharge. 21 minutes advance care planning. Disposition: Disposition/Orders: D/C to Another Facility Activity: Activity: Resume previous activity Diet: Diet: Regular Medications: Home Meds Active Scripts Lactulose (LACTULOSE) 20 Gm/30 Ml Solution, 20 GM PO BID for hepatic encephalopathy for 30 Days, #30 MISC 2 Refills Prov:YOLY SMITH MD 04/08/21 Pregabalin (LYRICA) 75 Mg Capsule, 50 MG PO TID for neuropathic pain for 30 Days, #60 CAP 2 Refills Prov:YOLY SMITH MD 04/08/21 Reported Medications Cyclobenzaprine Hcl (CYCLOBENZAPRINE HCL) 10 Mg Tablet, 10 MG PO TID for spasms, TAB 05/07/21 Omeprazole (OMEPRAZOLE) 20 Mg Capsule.dr, 1 CAP PO DAILY for gerd, #30 CAP 5 Refills 03/28/21 Nystatin (NYSTATIN) 15 Gm Powder, 1 SANDY TP BID for skin for 7 Days, #1 BOTTLE 0 Refills apply to affected area(s) 03/28/21 Potassium Chloride (POTASSIUM CHLORIDE ) 20 Meq Tablet.er, 20 MEQ PO DAILY for SUPPLEMENT, TAB.SR 03/28/21 Furosemide (LASIX) 40 Mg Tablet, 1 TAB PO DAILY for edema for 30 Days, #30 TAB 0 Refills 03/28/21 Multivit,Ther Iron,Ca,Fa & Min (THERA-M CAPLET) 1 Each Tablet, 1 TAB PO DAILY for supplement for 30 Days, #30 TAB 0 Refills 11/16/20 Lactobacillus Rhamnosus Gg (CULTURELLE) 1 Each Capsule, 1 CAP PO DAILY for probiotic for 30 Days, #30 CAP 0 Refills 11/16/20 Duloxetine Hcl (CYMBALTA) 60 Mg Capsule.dr, 1 CAP PO DAILY for depression, #90 CAP 3 Refills 11/16/20 Discontinued Scripts Amoxicillin (AMOXICILLIN) 500 Mg Capsule, 1 CAP PO BID for uti for 30 Days, #60 CAP 10 Refills Prov:YOLY SMITH MD 04/08/21 Amoxicillin/Potassium Clav (AUGMENTIN 875-125 TABLET) 1 Each Tablet, 1 TAB PO BID for uti for 10 Days, #20 TAB 0 Refills Prov:YOLY SMITH MD 04/08/21 Pantoprazole Sodium (PANTOPRAZOLE SODIUM ) 40 Mg Tablet.dr, 40 MG PO DAILYAC for reflux for 30 Days, #30 TAB.SR 2 Refills Prov:YOLY SMITH MD 04/08/21 [Dronabinol] 2.5 MG CAPSULE No Conflict Check, 2.5 MG PO BIDACLD for low appetite for 7 Days, #14 Prov:YOLY SMITH MD 04/08/21 Lactulose (LACTULOSE) 20 Gm/30 Ml Solution, 20 GM PO PRN BID PRN for CONSTIPATION for 30 Days, #60 MISC 2 Refills Prov:YOLY SMITH MD 11/29/20 Scheduled Cyclobenzaprine Hcl (Cyclobenzaprine Hcl), 10 MG PO TID, (Reported) Duloxetine Hcl (Cymbalta), 1 CAP PO DAILY, (Reported) Furosemide (Lasix), 1 TAB PO DAILY, (Reported) Lactobacillus Rhamnosus Gg (Culturelle), 1 CAP PO DAILY, (Reported) Lactulose (Lactulose), 20 GM PO BID Multivit,Ther Iron,Ca,Fa & Min (Thera-M Caplet), 1 TAB PO DAILY, (Reported) Nystatin (Nystatin), 1 SANDY TP BID, (Reported) Omeprazole (Omeprazole), 1 CAP PO DAILY, (Reported) Potassium Chloride (Potassium Chloride ), 20 MEQ PO DAILY, (Reported) Pregabalin (Lyrica), 50 MG PO TID Discontinued Medications Amoxicillin (Amoxicillin), 1 CAP PO BID Amoxicillin/Potassium Clav (Augmentin 875-125 Tablet), 1 TAB PO BID Lactulose (Lactulose), 20 GM PO PRN BID PRN for CONSTIPATION Pantoprazole Sodium (Pantoprazole Sodium ), 40 MG PO DAILYAC [Dronabinol], 2.5 MG PO BIDACLD Justicifation of Admission Dx: Justifications for Admission: Justification of Admission Dx: Yes JHOAN KILLIAN MD May 13, 2021 18:37
== END 2021-05-13 16:27 | DRG 871 ==
LOC: ER 18:16 → ED HOLD 21:05 → 4 NORTH 23:15
PROVIDERS: ADMIT Internal Medicine; ATTEND Internal Medicine
PROC: 02HV33Z Insertion of Infusion Device into Superior Vena Cava, Percutaneous Approach (ICD-10-PCS; principal; 2021-05-06)
DX: A41.51 Sepsis due to Escherichia coli [E. coli] (principal); G93.41 Metabolic encephalopathy; E43 Unspecified severe protein-calorie malnutrition; B37.49 Other urogenital candidiasis; D61.818 Other pancytopenia; K76.6 Portal hypertension; N13.30 Unspecified hydronephrosis; R18.8 Other ascites; Z16.12 Extended spectrum beta lactamase (ESBL) resistance; Z68.45 Body mass index [BMI] 70 or greater, adult; E87.2 Acidosis; Z20.822 Contact with and (suspected) exposure to COVID-19; B96.89 Other specified bacterial agents as the cause of diseases classified elsewhere; D69.59 Other secondary thrombocytopenia; E03.9 Hypothyroidism, unspecified; E83.42 Hypomagnesemia; F03.90 Unspecified dementia, unspecified severity, without behavioral disturbance, psychotic disturbance, mood disturbance, and anxiety; I10 Essential (primary) hypertension; K11.20 Sialoadenitis, unspecified; K21.9 Gastro-esophageal reflux disease without esophagitis; K72.10 Chronic hepatic failure without coma; K74.69 Other cirrhosis of liver; M54.16 Radiculopathy, lumbar region; N32.0 Bladder-neck obstruction; R13.10 Dysphagia, unspecified; R33.8 Other retention of urine; R62.7 Adult failure to thrive; Z82.49 Family history of ischemic heart disease and other diseases of the circulatory system; Z86.711 Personal history of pulmonary embolism; Z86.718 Personal history of other venous thrombosis and embolism; Z87.440 Personal history of urinary (tract) infections; Z87.891 Personal history of nicotine dependence; Z90.49 Acquired absence of other specified parts of digestive tract; Z90.710 Acquired absence of both cervix and uterus; Z91.19 Patient's noncompliance with other medical treatment and regimen; Z88.8 Allergy status to other drugs, medicaments and biological substances
CPT/HCPCS: 36415; 36569; 70450; 71045; 76705; 80053; 81001; 82140; 82550; 82962; 83605; 83735; 84100; 84484; 85025; 85610; 87040; 87077; 87086; 87106; 87186; 87426; 93005; 96361; 96365; 96367; 96368; C9113; J1335; J1450; J1650; J2185; J2543; J3370; J3475; J3480; J7030; J7040; J7042; U0003; 92526-GN; 92610-GN; 97530-GP; 97535-GO; 99285-25; G0378

== ENCOUNTER → 2021-05-20 | Outpatient (CLI) | payer MEDICARE, OTHER ==
[2021-05-13 15:00] VITALS: BP 110/69
[2021-05-20 06:12] LABS: BASO % 1 % (0-3); EOS # 0.1 x10^3/uL (0.0-0.7); EOS % 4 % (0-3); HEMATOCRIT 24.9 % (36.0-47.0); HEMOGLOBIN 8.3 g/dL (12.0-15.5); LYMPH # 0.6 x10^3/uL (1.0-4.8); LYMPH % 36 % (24-48); MEAN CORPUSCULAR HEMOGLOBIN 30 pg (25-35); MEAN CORPUSCULAR HGB CONC 33 g/dL (31-37); MEAN CORPUSCULAR VOLUME 91 fL (79-100); MONO # 0.1 x10^3/uL (0.0-1.1); MONO % 7 % (0-9); NEUT # 0.9 x10^3/uL (1.8-7.7); NEUT % 52 % (31-73); PLATELET COUNT 71 x10^3/uL (140-400); RED BLOOD COUNT 2.74 x10^6/uL (3.50-5.40); RED CELL DISTRIBUTION WIDTH 18.9 % (11.5-14.5)
[2021-05-20 06:26] LABS: WHITE BLOOD COUNT 1.7 x10^3/uL (4.0-11.0)
[2021-05-20 06:34] LABS: ALBUMIN 1.3 g/dL (3.4-5.0); ALBUMIN/GLOBULIN RATIO 0.3 (1.0-1.7); CALCIUM 7.5 mg/dL (8.5-10.1); CREATININE 0.7 mg/dL (0.6-1.0); POTASSIUM 3.6 mmol/L (3.5-5.1); TOTAL PROTEIN 5.8 g/dL (6.4-8.2)
[2021-05-20 08:11] LABS: % EOS 5 % (0-5); % LYMPHS 35 % (24-48); % MONOS 2 % (0-10); % SEGS 58 % (35-66); OVALOCYTES OCC; PLT ESTIMATE DECREASED (ADEQUATE)
== END ==
LOC: SPEC 00:02
PROVIDERS: ATTEND Family Medicine
DX: I50.9 Heart failure, unspecified (principal)
CPT/HCPCS: 36415; 80053; 85007; 85025; 85610

== ENCOUNTER → 2021-05-29 | Outpatient (CLI) | payer MEDICARE, OTHER ==
[2021-05-13 15:00] VITALS: BP 110/69
[2021-05-29 06:59] LABS: BASO % 1 % (0-3); EOS # 0.1 x10^3/uL (0.0-0.7); EOS % 6 % (0-3); HEMATOCRIT 24.7 % (36.0-47.0); HEMOGLOBIN 8.3 g/dL (12.0-15.5); LYMPH # 0.7 x10^3/uL (1.0-4.8); LYMPH % 41 % (24-48); MEAN CORPUSCULAR HEMOGLOBIN 31 pg (25-35); MEAN CORPUSCULAR HGB CONC 34 g/dL (31-37); MEAN CORPUSCULAR VOLUME 91 fL (79-100); MONO # 0.1 x10^3/uL (0.0-1.1); MONO % 7 % (0-9); NEUT # 0.8 x10^3/uL (1.8-7.7); NEUT % 45 % (31-73); PLATELET COUNT 50 x10^3/uL (140-400); RED CELL DISTRIBUTION WIDTH 18.3 % (11.5-14.5)
[2021-05-29 07:06] LABS: WHITE BLOOD COUNT 1.7 x10^3/uL (4.0-11.0)
== END ==
LOC: SPEC 00:04
PROVIDERS: ATTEND Family Medicine
DX: D64.9 Anemia, unspecified (principal)
CPT/HCPCS: 36415; 85025

== ENCOUNTER → 2021-06-05 | Outpatient (CLI) | payer MEDICARE, OTHER ==
[2021-05-13 15:00] VITALS: BP 110/69
[2021-06-05 13:27] LABS: BASO % 1 % (0-3); EOS # 0.2 x10^3/uL (0.0-0.7); EOS % 7 % (0-3); HEMATOCRIT 33.4 % (36.0-47.0); HEMOGLOBIN 10.8 g/dL (12.0-15.5); LYMPH # 0.9 x10^3/uL (1.0-4.8); LYMPH % 33 % (24-48); MEAN CORPUSCULAR HEMOGLOBIN 30 pg (25-35); MEAN CORPUSCULAR HGB CONC 32 g/dL (31-37); MEAN CORPUSCULAR VOLUME 93 fL (79-100); MONO # 0.2 x10^3/uL (0.0-1.1); MONO % 6 % (0-9); NEUT # 1.5 x10^3/uL (1.8-7.7); NEUT % 53 % (31-73); PLATELET COUNT 75 x10^3/uL (140-400); RED BLOOD COUNT 3.58 x10^6/uL (3.50-5.40); RED CELL DISTRIBUTION WIDTH 19.2 % (11.5-14.5); WHITE BLOOD COUNT 2.8 x10^3/uL (4.0-11.0)
[2021-06-05 13:38] LABS: CREATININE 0.8 mg/dL (0.6-1.0); POTASSIUM 3.7 mmol/L (3.5-5.1)
[2021-06-05 13:44] LABS: ALBUMIN 1.7 g/dL (3.4-5.0); ALBUMIN/GLOBULIN RATIO 0.3 (1.0-1.7); TOTAL BILIRUBIN 1.3 mg/dL (0.2-1.0); TOTAL PROTEIN 7.2 g/dL (6.4-8.2)
== END ==
LOC: ONCLAB 11:48
PROVIDERS: ATTEND Internal Medicine Hematology & Oncology
DX: D61.818 Other pancytopenia (principal)
CPT/HCPCS: 80053; 82525; 85025

== ENCOUNTER → 2021-06-11 | Outpatient (CLI) | payer MEDICARE, OTHER ==
[2021-05-13 15:00] VITALS: BP 110/69
[2021-06-11 06:29] LABS: BASO % 1 % (0-3); EOS # 0.1 x10^3/uL (0.0-0.7); EOS % 4 % (0-3); HEMATOCRIT 30.9 % (36.0-47.0); HEMOGLOBIN 10.2 g/dL (12.0-15.5); LYMPH % 32 % (24-48); MEAN CORPUSCULAR HEMOGLOBIN 30 pg (25-35); MEAN CORPUSCULAR HGB CONC 33 g/dL (31-37); MEAN CORPUSCULAR VOLUME 92 fL (79-100); MONO # 0.2 x10^3/uL (0.0-1.1); MONO % 5 % (0-9); NEUT # 1.8 x10^3/uL (1.8-7.7); NEUT % 58 % (31-73); PLATELET COUNT 65 x10^3/uL (140-400); RED BLOOD COUNT 3.35 x10^6/uL (3.50-5.40); RED CELL DISTRIBUTION WIDTH 18.5 % (11.5-14.5); WHITE BLOOD COUNT 3.2 x10^3/uL (4.0-11.0)
[2021-06-11 06:40] LABS: ALBUMIN 1.4 g/dL (3.4-5.0); ALBUMIN/GLOBULIN RATIO 0.3 (1.0-1.7); CALCIUM 7.5 mg/dL (8.5-10.1); CREATININE 0.7 mg/dL (0.6-1.0); MAGNESIUM 1.6 mg/dL (1.8-2.4); POTASSIUM 3.4 mmol/L (3.5-5.1); TOTAL BILIRUBIN 1.1 mg/dL (0.2-1.0); TOTAL PROTEIN 6.3 g/dL (6.4-8.2)
[2021-06-11 07:14] LABS: PROTHROMBIN TIME PATIENT 19.9 SEC (11.7-14.0)
== END ==
LOC: SPEC 00:07
PROVIDERS: ATTEND Family Medicine
DX: D64.9 Anemia, unspecified (principal)
CPT/HCPCS: 36415; 80053; 82140; 83735; 85025; 85610